=== PATIENT | male | born 1985 | race Caucasian/White ===

== ENCOUNTER 2019-10-23 22:18 | Emergency (ER) | payer BC ==
[2019-10-23] MEDS ORDERED: Sodium Chloride 0.9% 1000 ML 1,000 ML IV STA (22:33)
[2019-10-23] MEDS ORDERED: MORPHINE SULFATE 2 MG INJ IV ONE (22:33)
[2019-10-23] MEDS ORDERED: Zofran 4 MG/2 ML VIAL IV ONE (22:33)
[2019-10-23] MEDS ORDERED: MORPHINE SULFATE 2 MG INJ ONE (22:48)
[2019-10-23] MEDS ORDERED: Sodium Chloride 0.9% 1000 ML 1,000 ML ONE (22:48)
[2019-10-23] MEDS ORDERED: Zofran 4 MG/2 ML VIAL ONE (22:48)
[2019-10-23 23:14] LABS: Appearance SLIGHTLY CLOUDY (CLEAR); Bacteria NONE SEEN /HPF (NEGATIVE); Bilirubin NEGATIVE (NEGATIVE); Blood NEGATIVE Ery/ul (0-5); Epithelial Cells RARE /HPF (FEW); Glucose NEGATIVE (NEGATIVE); Ketones MODERATE (NEGATIVE); Leukocyte Esterase NEGATIVE (NEGATIVE); Mucus SLIGHT /HPF (NEGATIVE); Nitrite NEGATIVE (NEGATIVE); Protein,Urine Dip 30 (Negative); RBC 0-2 /HPF (0-2); Specific Gravity 1.024 (1.005-1.025); Urobilinogen NEGATIVE mg/dL (0-1); WBC 0-2 /HPF (0-5)
[2019-10-23 23:14] LABS: Absolute Neutrophil Ct (ANC) 9.36 (1.4-6.9); BASOPHIL % 0.1 % (0.0-0.4); Basophil (Absolute #) 0.01 (0-0.4); Eosinophil (Absolute #) 0 (0-0.5); Hematocrit 54.6 % (42-50); Hemoglobin 19.1 gm/dl (12.5-18.0); Lymphocyte (Absolute #) 0.61 (1.0-4.6); Lymphocytes % 5.6 % (24.0-44.0); Mean Cell Volume 99.6 fl (78-100); Mean Corpuscular Hemoglobin 34.9 pg (26-32); Mean Platelet Volume 9.8 fl (7.5-11.0); Monocyte (Absolute #) 1.01 (0.0-1.3); Monocytes % 9.2 % (0.0-12.0); Neutrophil % 85.1 % (36.0-66.0); Platelet Count 230 K/mm3 (150-450); Red Blood Count 5.48 M/mm3 (4.1-5.6); Red Cell Distribution Width 12.9 % (11.5-14.0)
[2019-10-23 23:21] LABS: ALBUMIN 4.9 g/dL (3.5-5.0); ALKALINE PHOSPHATASE 77 U/L (38-126); BLOOD UREA NITROGEN 12 mg/dL (9-20); CHLORIDE 101 mmol/L (98-107); Calcium 10.2 mg/dL (8.4-10.2); Carbon Dioxide 23 mmol/L (22-30); Creatinine 1 0.92 mg/dL (0.66-1.25); Glucose 92 mg/dL (74-106); Potassium 4.7 mmol/L (3.5-5.1); SGOT/AST 36 U/L (17-59); SGPT/ALT 30 U/L (0-50); SODIUM 137 mmol/L (137-145); Total Protein 8.2 g/dL (6.3-8.2)
[2019-10-23 23:42] LABS: LIPASE > 10000 U/L (23-300)
--- NOTE | 2019-10-24 00:12 | ERPHSYRPT ---
- History of Present Illness Time Seen by Provider: 10/23/19 22:40 Historian: patient Exam Limitations: no limitations Patient Subjective Stated Complaint: pt states that he woke up this morning with severe abdomen pain, pt states that pain started in LLQ and now is in RUQ, pt states that he has been vomiting since 1630, pt states that emesis is green/ yellow with black spots, pt states that he has not been able to keep anything down, pt states that he has hx of acute pacreatitis, pt states that he has a flare up at least once a year Triage Nursing Assessment: pt ambulated into the er, pt is axo x3, pt is guarding RUQ, pt c/o N/V, pt has active bowel sounds in all quads, pt abdomen in symetrical and flat, hypertensive Physician History: Patient is a 34-year-old male presents to our ED with complaints of epigastric pain. Pain started this morning. Pain first observed in the left upper quadrant and radiated to the right upper quadrant. Pain is associated with nausea and vomiting. Patient states he is unable to tolerate p.o. Emesis is green to yellow. No diarrhea. Patient admits to history of pancreatitis. Patient states his symptoms today are similar. No trauma. No fever. Symptoms are moderate in intensity. Palpation and movement worsen symptoms. Patient voices no other complaints at this time. Timing/Duration: today Activities at Onset: none Quality: aching Abdominal Pain Onset Location: epigastric Pain Radiation: RUQ, LLQ Severity of Pain-Max: moderate Severity of Pain-Current: mild Modifying Factors: Improves With: movement Associated Symptoms: loss of appetite, nausea, vomiting, No chest pain, No diaphoresis, No diarrhea, No fever/chills, No headache, No heartburn, No neck pain, No rash, No shortness of breath Previous symptoms: no prior history Allergies/Adverse Reactions: No Known Drug Allergies Allergy (Unverified 10/23/19 22:32) Home Medications: Bupropion HCl [Wellbutrin Xl] 150 mg PO DAILY 10/23/19 [History] Buspirone HCl 5 mg PO BID 10/23/19 [History] Escitalopram Oxalate [Lexapro] 20 mg PO DAILY 10/23/19 [History] Omeprazole 40 mg PO DAILY 10/23/19 [History] Hx Tetanus, Diphtheria Vaccination/Date Given: Yes (2018) Hx Influenza Vaccination/Date Given: No Hx Pneumococcal Vaccination/Date Given: No Travel Risk - International Travel Have you traveled outside of the country in past 3 weeks: No (N) If Yes, where;: N - Coronavirus Screening Are you exhibiting any of the following symptoms?: No Close contact with a COVID-19 positive Pt in past 14-21 Days: No - Review of Systems Constitutional: No Symptoms, No Fever, No Chills Eyes: No Symptoms Ears, Nose, & Throat: No Symptoms Respiratory: No Symptoms, No Cough, No Dyspnea Cardiac: No Symptoms, No Chest Pain, No Edema, No Syncope Abdominal/Gastrointestinal: No Symptoms, No Abdominal Pain, No Nausea, No Vomiting, No Diarrhea Genitourinary Symptoms: No Symptoms, No Dysuria Musculoskeletal: No Symptoms, No Back Pain, No Neck Pain Skin: No Symptoms, No Rash Neurological: No Symptoms, No Dizziness, No Focal Weakness, No Sensory Changes Psychological: No Symptoms Endocrine: No Symptoms Hematologic/Lymphatic: No Symptoms Immunological/Allergic: No Symptoms All Other Systems: Reviewed and Negative - Past Medical History GI Medical History: GERD Psycho-Social History: Anxiety, Depression - Past Surgical History Other Surgical History: 3 sets of tubes in bilateral ears - Social History Smoking Status: Current every day smoker How long have you smoked: 2 Exposure to second hand smoke: Yes Drug Use: none Patient Lives Alone: No - Nursing Vital Signs Nursing Vital Signs: Initial Vital Signs Temperature 97.7 F 10/23/19 22:33 Pulse Rate 81 10/23/19 22:33 Respiratory Rate 16 10/23/19 22:33 Blood Pressure 171/102 10/23/19 22:33 O2 Sat by Pulse Oximetry 97 10/23/19 22:33 Pain Scale Pain Intensity 6 - Physical Exam General Appearance: no apparent distress, alert Eye Exam: PERRL/EOMI, eyes nml inspection Ears, Nose, Throat Exam: normal ENT inspection, pharynx normal, moist mucous membranes Neck Exam: normal inspection, non-tender, supple, full range of motion Respiratory Exam: normal breath sounds, lungs clear, No respiratory distress Cardiovascular Exam: regular rate/rhythm, normal heart sounds Gastrointestinal/Abdomen Exam: soft, No tenderness, No mass Back Exam: normal inspection, normal range of motion, No CVA tenderness, No vertebral tenderness Extremity Exam: normal inspection, normal range of motion, pelvis stable Neurologic Exam: alert, oriented x 3, cooperative, normal mood/affect, nml cerebellar function, sensation nml, No motor deficits Skin Exam: normal color, warm, dry SpO2 Interpretation: normal SpO2: 98 O2 Delivery: Room Air - Course Nursing assessment & vital signs reviewed: Yes - CT Exams Abdomen/Pelvis CT Interpretation: Tele-radiologist Report (Severe peripancreatic edema, 1.4 cm left mid kidney mass) Ordered Tests: Active Orders 24 hr Category Date Time Status IV Insertion STAT Care 10/23/19 22:33 Active NPO (ED) STAT Care 10/24/19 00:43 Active ABDOMEN AND PELVIS W CONTRAST [CT] Stat Exams 10/23/19 22:34 Ordered CBC W DIFF Stat Lab 10/23/19 22:44 Completed CMP Stat Lab 10/23/19 22:44 Completed LIPASE Stat Lab 10/23/19 22:44 Completed TROPONIN Q3H Lab 10/23/19 22:44 Completed TROPONIN Q3H Lab 10/24/19 01:45 Ordered TROPONIN Q3H Lab 10/24/19 04:45 Ordered TROPONIN Q3H Lab 10/24/19 07:45 Ordered TROPONIN Q3H Lab 10/24/19 10:45 Ordered UA W/RFX UR CULTURE Stat Lab 10/23/19 23:03 Completed Medication Summary Generic Name Dose Route Start Last Admin Trade Name Freq PRN Reason Stop Dose Admin Sodium Chloride 1,000 mls @ 999 mls/hr 10/24/19 00:44 10/24/19 00:52 Sodium Chloride 0.9% 1000 Ml IV 10/24/19 01:44 999 mls/hr .Q1H1M STA Administration Discontinued Medications Generic Name Dose Route Start Last Admin Trade Name Freq PRN Reason Stop Dose Admin Sodium Chloride 1,000 mls @ 999 mls/hr 10/23/19 22:33 10/24/19 00:49 Sodium Chloride 0.9% 1000 Ml IV 10/23/19 23:33 Infused .Q1H1M STA Infusion Sodium Chloride Confirm 10/23/19 22:48 Sodium Chloride 0.9% 1000 Ml Administered 10/23/19 22:49 Dose 1,000 mls @ ud .ROUTE .STK-MED ONE Sodium Chloride Confirm 10/24/19 00:51 Sodium Chloride 0.9% 1000 Ml Administered 10/24/19 00:52 Dose 1,000 mls @ ud .ROUTE .STK-MED ONE Morphine Sulfate 2 mg 10/23/19 22:33 10/23/19 22:51 Morphine Sulfate 2 Mg Inj IV 10/23/19 22:34 2 mg STAT ONE Administration Morphine Sulfate Confirm 10/23/19 22:48 Morphine Sulfate 2 Mg Inj Administered 10/23/19 22:49 Dose 2 mg .ROUTE .STK-MED ONE Morphine Sulfate 4 mg 10/24/19 00:42 10/24/19 00:52 Morphine Sulfate 4 Mg Inj IV 10/24/19 00:43 4 mg STAT ONE Administration Morphine Sulfate Confirm 10/24/19 00:51 Morphine Sulfate 4 Mg Inj Administered 10/24/19 00:52 Dose 4 mg .ROUTE .STK-MED ONE Ondansetron HCl 4 mg 10/23/19 22:33 10/23/19 22:51 Zofran 4 Mg/2 Ml Vial IV 10/23/19 22:34 4 mg STAT ONE Administration Ondansetron HCl Confirm 10/23/19 22:48 Zofran 4 Mg/2 Ml Vial Administered 10/23/19 22:49 Dose 4 mg .ROUTE .STK-MED ONE Lab/Rad Data: Laboratory Result Diagrams 10/23/19 22:44 10/23/19 22:44 Laboratory Results 10/23/19 10/23/19 10/23/19 Range/Units 23:03 22:44 22:44 WBC 11.0 H (4.0-10.5) K/mm3 RBC 5.48 (4.1-5.6) M/mm3 Hgb 19.1 H (12.5-18.0) gm/dl Hct 54.6 H (42-50) % MCV 99.6 (78-100) fl MCH 34.9 H (26-32) pg MCHC 35.0 (32-36) g/dl RDW 12.9 (11.5-14.0) % Plt Count 230 (150-450) K/mm3 MPV 9.8 (7.5-11.0) fl Gran % 85.1 H (36.0-66.0) % Eos # (Auto) 0 (0-0.5) Absolute Lymphs (auto) 0.61 L (1.0-4.6) Absolute Monos (auto) 1.01 (0.0-1.3) Lymphocytes % 5.6 L (24.0-44.0) % Monocytes % 9.2 (0.0-12.0) % Eosinophils % 0.0 (0.00-5.0) % Basophils % 0.1 (0.0-0.4) % Absolute Granulocytes 9.36 H (1.4-6.9) Basophils # 0.01 (0-0.4) Sodium (137-145) mmol/L Potassium (3.5-5.1) mmol/L Chloride (98-107) mmol/L Carbon Dioxide (22-30) mmol/L Anion Gap (5-15) MEQ/L BUN (9-20) mg/dL Creatinine (0.66-1.25) mg/dL Estimated GFR ML/MIN Glucose (74-106) mg/dL Calcium (8.4-10.2) mg/dL Total Bilirubin (0.2-1.3) mg/dL AST (17-59) U/L ALT (0-50) U/L Alkaline Phosphatase (38-126) U/L Troponin I < 0.012 (0.000-0.034) ng/mL Serum Total Protein (6.3-8.2) g/dL Albumin (3.5-5.0) g/dL Lipase (23-300) U/L Urine Color YELLOW (YELLOW) Urine Appearance SLIGHTLY CLOUDY (CLEAR) Urine pH 5.0 (5-6) Ur Specific [place] 1.024 (1.005-1.025) Urine Protein 30 (Negative) Urine Ketones MODERATE (NEGATIVE) Urine Blood NEGATIVE (0-5) Bill/ul Urine Nitrite NEGATIVE (NEGATIVE) Urine Bilirubin NEGATIVE (NEGATIVE) Urine Urobilinogen NEGATIVE (0-1) mg/dL Ur Leukocyte Esterase NEGATIVE (NEGATIVE) Urine WBC (Auto) 0-2 (0-5) /HPF Urine RBC (Auto) 0-2 (0-2) /HPF U Hyaline Cast (Auto) 3-5 (0-2) /LPF U Epithel Cells (Auto) RARE (FEW) /HPF Urine Bacteria (Auto) NONE SEEN (NEGATIVE) /HPF Urine Mucus (Auto) SLIGHT (NEGATIVE) /HPF Urine Culture Reflexed NO (NO) Urine Glucose NEGATIVE (NEGATIVE) mg/dL 10/23/19 Range/Units 22:44 WBC (4.0-10.5) K/mm3 RBC (4.1-5.6) M/mm3 Hgb (12.5-18.0) gm/dl Hct (42-50) % MCV (78-100) fl MCH (26-32) pg MCHC (32-36) g/dl RDW (11.5-14.0) % Plt Count (150-450) K/mm3 MPV (7.5-11.0) fl Gran % (36.0-66.0) % Eos # (Auto) (0-0.5) Absolute Lymphs (auto) (1.0-4.6) Absolute Monos (auto) (0.0-1.3) Lymphocytes % (24.0-44.0) % Monocytes % (0.0-12.0) % Eosinophils % (0.00-5.0) % Basophils % (0.0-0.4) % Absolute Granulocytes (1.4-6.9) Basophils # (0-0.4) Sodium 137 (137-145) mmol/L Potassium 4.7 (3.5-5.1) mmol/L Chloride 101 (98-107) mmol/L Carbon Dioxide 23 (22-30) mmol/L Anion Gap 17.0 H (5-15) MEQ/L BUN 12 (9-20) mg/dL Creatinine 0.92 (0.66-1.25) mg/dL Estimated GFR > 60.0 ML/MIN Glucose 92 (74-106) mg/dL Calcium 10.2 (8.4-10.2) mg/dL Total Bilirubin 1.30 (0.2-1.3) mg/dL AST 36 (17-59) U/L ALT 30 (0-50) U/L Alkaline Phosphatase 77 (38-126) U/L Troponin I (0.000-0.034) ng/mL Serum Total Protein 8.2 (6.3-8.2) g/dL Albumin 4.9 (3.5-5.0) g/dL Lipase > 76380 H (23-300) U/L Urine Color (YELLOW) Urine Appearance (CLEAR) Urine pH (5-6) Ur Specific [place] (1.005-1.025) Urine Protein (Negative) Urine Ketones (NEGATIVE) Urine Blood (0-5) Bill/ul Urine Nitrite (NEGATIVE) Urine Bilirubin (NEGATIVE) Urine Urobilinogen (0-1) mg/dL Ur Leukocyte Esterase (NEGATIVE) Urine WBC (Auto) (0-5) /HPF Urine RBC (Auto) (0-2) /HPF U Hyaline Cast (Auto) (0-2) /LPF U Epithel Cells (Auto) (FEW) /HPF Urine Bacteria (Auto) (NEGATIVE) /HPF Urine Mucus (Auto) (NEGATIVE) /HPF Urine Culture Reflexed (NO) Urine Glucose (NEGATIVE) mg/dL - Progress Progress: improved Progress Note: Cussed with Dr. Leahy who feels that patient will be better served in a facility that offers ERCP. Patient will be transferred to [facility]. Dr. Wellington. Plan of care discussed with patient. He agrees to transfer to [facility] for further evaluation and treatment. 10/24/19 01:[address] Arcenio Counseled pt/family regarding: drug and/or alcohol abuse, lab results, diagnosis, rad results - Departure Departure Disposition: Transfer Clinical Impression: Pancreatitis, Renal mass, left, Leukocytosis, Polycythemia, High anion gap metabolic acidosis, Elevated lipase, Nausea and vomiting Condition: Stable Critical Care Time: No Referrals: RICHARD MONTES MD [Primary Care Provider] - Additional Instructions: Discharge/Care Plan SUKUMAR PATTEN was seen on 10/24/19 in the Emergency Room. The patient was counseled regarding Diagnosis,Lab results, Imaging studies, need for follow up and when to return to the Emergency Room. Prescriptions given: Discharge Note I have spoken with the patient and/or caregivers. I have explained the patient's condition, diagnosis and treatment plan based on the information available to me at this time. I have answered the patient's and/or caregiver's questions and addressed any concerns. The patient and/or caregivers have as good understanding of the patient's diagnosis, condition and treatment plan as can be expected at this point. The vital signs have been stable. The patient's condition is stable and appropriate for discharge from the emergency department. The patient will pursue further outpatient evaluation with the primary care physician or other designated or consulting physician as outlined in the discharge instructions. The patient and/or caregivers are agreeable to this plan of care and follow-up instructions have been explained in detail. The patient and/or caregivers have received these instruction. The patient/and or caregivers are aware that any significant change in condition or worsening of symptoms should prompt an immediate return to this or the closest emergency department or call 911.
[2019-10-24] MEDS ORDERED: MORPHINE SULFATE 4 MG INJ IV ONE (00:42)
[2019-10-24] MEDS ORDERED: Sodium Chloride 0.9% 1000 ML 1,000 ML IV STA (00:44)
[2019-10-24] MEDS ORDERED: MORPHINE SULFATE 4 MG INJ ONE (00:51)
[2019-10-24] MEDS ORDERED: Sodium Chloride 0.9% 1000 ML 1,000 ML ONE (00:51)
[2019-10-24 01:03] VITALS: BP 154/82; PULSE 72
[2019-10-24 01:20] VITALS: O2SAT 98
--- NOTE | 2019-10-24 09:00 | XRAY ---
Indication: Abdomen pain, nausea, and vomiting. Pancreatitis. Multiple contiguous axial images obtained through the abdomen and pelvis using 80 cc Isovue 370 contrast only. Comparison: None. Lung bases are clear. Heart is not enlarged. Noncontrasted stomach and bowel loops appear nonobstructed. Normal appendix. Abnormal prominent pancreas with moderate peripancreatic stranding favoring pancreatitis. Moderate peripancreatic free fluid with small amount extending to the left colic gutter and pelvis. No walled off fluid collection or free air. Left mid kidney demonstrates 1.2 cm ovoid exophytic mass not simple cyst in appearance. Remaining liver, gallbladder, spleen, adrenal glands, kidneys, ureters, bladder, and aorta appear unremarkable. No pathologic retroperitoneal lymphadenopathy. Osseous structures intact. No ventral or inguinal hernias. Impression: 1. CT findings favoring acute pancreatitis with free fluid. 2. Small left renal exophytic mass not simple cyst in appearance. MRI with contrast exam may yield further information. Comment: Preliminary interpretation was made by [facility]. No critical discrepancy.
== END 2019-10-24 01:52 | disposition short-term general hospital (02) ==
LOC: ED 22:18
DX: K85.90 Acute pancreatitis without necrosis or infection, unspecified (principal); N28.89 Other specified disorders of kidney and ureter; D72.829 Elevated white blood cell count, unspecified; D75.1 Secondary polycythemia; E87.2 Acidosis; R74.8 Abnormal levels of other serum enzymes; R11.2 Nausea with vomiting, unspecified; R10.13 Epigastric pain; R10.11 Right upper quadrant pain; R10.12 Left upper quadrant pain; R10.32 Left lower quadrant pain; Z79.899 Other long term (current) drug therapy
CPT/HCPCS: 36000; 36415; 74177; 80053; 81001; 83690; 84484; 85025; 96360; 96361; 96374; 96375; 96376; 99285; J2270; J2405

== ENCOUNTER 2019-12-09 19:18 | Emergency (ER) | payer BC, MEDICAID, OTHER ==
[2019-12-09] MEDS ORDERED: Sodium Chloride 0.9% 1000 ML 1,000 ML IV STA (19:22)
[2019-12-09] MEDS ORDERED: THIAMINE 200 MG/2 ML IV ONE (19:24)
[2019-12-09] MEDS ORDERED: THIAMINE 200 MG/2 ML ONE (19:26)
[2019-12-09] MEDS ORDERED: Sodium Chloride 0.9% 1000 ML 1,000 ML ONE (19:26)
[2019-12-09 19:40] LABS: Absolute Neutrophil Ct (ANC) 2.57 (1.4-6.9); BASOPHIL % 0.2 % (0.0-0.4); Basophil (Absolute #) 0.01 (0-0.4); Eosinophil % 2.2 % (0.00-5.0); Eosinophil (Absolute #) 0.11 (0-0.5); Hematocrit 45.4 % (42-50); Hemoglobin 15.3 gm/dl (12.5-18.0); Lymphocyte (Absolute #) 1.87 (1.0-4.6); Lymphocytes % 36.7 % (24.0-44.0); Mean Cell Volume 101.8 fl (78-100); Mean Corpuscular Hemoglobin 34.3 pg (26-32); Mean Corpuscular Hgb Concent. 33.7 g/dl (32-36); Mean Platelet Volume 9.1 fl (7.5-11.0); Monocyte (Absolute #) 0.54 (0.0-1.3); Monocytes % 10.6 % (0.0-12.0); Neutrophil % 50.3 % (36.0-66.0); Platelet Count 219 K/mm3 (150-450); Red Blood Count 4.46 M/mm3 (4.1-5.6); Red Cell Distribution Width 12.3 % (11.5-14.0); White Blood Count 5.1 K/mm3 (4.0-10.5)
[2019-12-09 19:53] LABS: ALBUMIN 4.7 g/dL (3.5-5.0); ALKALINE PHOSPHATASE 58 U/L (38-126); ANION GAP 13.8 MEQ/L (5-15); BLOOD UREA NITROGEN 8 mg/dL (9-20); CHLORIDE 106 mmol/L (98-107); Calcium 8.9 mg/dL (8.4-10.2); Carbon Dioxide 26 mmol/L (22-30); Creatinine 1 0.84 mg/dL (0.66-1.25); ETHYL ALCOHOL 272 mg/dL (0-10); Glucose 95 mg/dL (74-106); Potassium 4.1 mmol/L (3.5-5.1); SGOT/AST 44 U/L (17-59); SGPT/ALT 35 U/L (0-50); SODIUM 142 mmol/L (137-145); Total Protein 7.8 g/dL (6.3-8.2)
[2019-12-09 19:57] LABS: ACETAMINOPHEN < 10 ug/ml (10-30)
[2019-12-09 19:58] LABS: SALICYLATE < 1.0 mg/dL (2-20)
--- NOTE | 2019-12-09 19:59 | ERPHSYRPT ---
- History of Present Illness Time Seen by Provider: 12/09/19 19:25 Patient Subjective Stated Complaint: pt was brought into er for medical cleareance by officer, officer states pt was drinking and driving Triage Nursing Assessment: pt ambulated into the er, pt is axo x3, hypertensive, tachycardic, blood sugar 102, clear lung sounds anterior and posterior, active bowel sounds in all quads, pupils 4 mm and PERRL Physician History: pt was brought into er for medical cleareance by officer, officer states pt was drinking and driving. He is asymptomatic Timing/Duration: today Severity: moderate Modifying Factors: Improves With: other (None) Allergies/Adverse Reactions: No Known Drug Allergies Allergy (Verified 12/09/19 19:20) Home Medications: Bupropion HCl [Wellbutrin Xl] 150 mg PO DAILY 10/23/19 [History] Buspirone HCl 10 mg PO BID 10/23/19 [History] Escitalopram Oxalate [Lexapro] 40 mg PO DAILY 10/23/19 [History] Omeprazole 40 mg PO DAILY 10/23/19 [History] Hx Tetanus, Diphtheria Vaccination/Date Given: Yes (2018) Hx Influenza Vaccination/Date Given: No Hx Pneumococcal Vaccination/Date Given: No Travel Risk - International Travel Have you traveled outside of the country in past 3 weeks: No - Coronavirus Screening Close contact with a COVID-19 positive Pt in past 14-21 Days: No - Review of Systems Constitutional: No Fever, No Chills Eyes: No Symptoms Ears, Nose, & Throat: No Symptoms Respiratory: No Cough, No Dyspnea Cardiac: No Chest Pain, No Edema, No Syncope Abdominal/Gastrointestinal: No Abdominal Pain, No Nausea, No Vomiting, No Diarrhea Genitourinary Symptoms: No Dysuria Musculoskeletal: No Back Pain, No Neck Pain Skin: No Rash Neurological: No Dizziness, No Focal Weakness, No Sensory Changes Psychological: No Symptoms Endocrine: No Symptoms All Other Systems: Reviewed and Negative - Past Medical History Pertinent Past Medical History: Yes Neurological History: No Pertinent History ENT History: No Pertinent History Cardiac History: No Pertinent History Respiratory History: No Pertinent History Endocrine Medical History: No Pertinent History GI Medical History: GERD, Pancreatitis, Other (GERD) Psycho-Social History: Anxiety, Depression - Past Surgical History Past Surgical History: No Other Surgical History: 3 sets of tubes in bilateral ears - Social History Smoking Status: Current every day smoker How long have you smoked: 2 Exposure to second hand smoke: Yes Drug Use: none Patient Lives Alone: No - Nursing Vital Signs Nursing Vital Signs: Initial Vital Signs Temperature 98.1 F 12/09/19 19:21 Pulse Rate 102 H 12/09/19 19:21 Respiratory Rate 14 12/09/19 19:21 Blood Pressure 158/106 12/09/19 19:21 O2 Sat by Pulse Oximetry 99 12/09/19 19:21 Pain Scale Pain Intensity 0 - Physical Exam General Appearance: no apparent distress, alert Eye Exam: PERRL/EOMI, eyes nml inspection Ears, Nose, Throat Exam: normal ENT inspection, TMs normal, pharynx normal, moist mucous membranes Neck Exam: normal inspection, non-tender, supple, full range of motion Respiratory Exam: normal breath sounds, lungs clear, No respiratory distress Cardiovascular Exam: regular rate/rhythm, normal heart sounds, normal peripheral pulses Gastrointestinal/Abdomen Exam: soft, normal bowel sounds, No tenderness, No mass Back Exam: normal inspection, normal range of motion, No CVA tenderness, No vertebral tenderness Extremity Exam: normal inspection, normal range of motion, pelvis stable Neurologic Exam: alert, oriented x 3, cooperative, normal mood/affect, nml cerebellar function, nml station & gait, sensation nml, No motor deficits Skin Exam: normal color, warm, dry, other (Skin 1 cm small superficial well aligned laceration to the left middle finger distal end.), No rash Lymphatic Exam: No adenopathy SpO2: 99 - Course Nursing assessment & vital signs reviewed: Yes Ordered Tests: Active Orders 24 hr Category Date Time Status Dressing Care ROUTINE Care 12/09/19 20:02 Active IV Insertion STAT Care 12/09/19 19:22 Active ACETAMINOPHEN Stat Lab 12/09/19 19:30 Completed Alcohol [ETHYL ALCOHOL] Stat Lab 12/09/19 21:15 Ordered CBC W DIFF Stat Lab 12/09/19 19:30 Completed CMP Stat Lab 12/09/19 19:30 Completed ETHYL ALCOHOL Routine Lab 12/09/19 20:17 Completed ETHYL ALCOHOL Stat Lab 12/09/19 19:30 Completed SALICYLATE Stat Lab 12/09/19 19:30 Completed UA W/RFX UR CULTURE Stat Lab 12/09/19 20:30 Completed Urine Triage Profile Stat Lab 12/09/19 20:30 Completed Medication Summary Discontinued Medications Generic Name Dose Route Start Last Admin Trade Name Sebastian PRN Reason Stop Dose Admin Sodium Chloride 1,000 mls @ 999 mls/hr 12/09/19 19:22 12/09/19 20:31 Sodium Chloride 0.9% 1000 Ml IV 12/09/19 20:22 Infused .Q1H1M STA Infusion Sodium Chloride Confirm 12/09/19 19:26 Sodium Chloride 0.9% 1000 Ml Administered 12/09/19 19:27 Dose 1,000 mls @ ud .ROUTE .STK-MED ONE Lactated Ringer's 1,000 mls @ 999 mls/hr 12/09/19 20:04 12/09/19 20:16 Lactated Ringers IV 12/09/19 21:04 999 mls/hr .Q1H1M ONE Administration Lactated Ringer's Confirm 12/09/19 20:14 Lactated Ringers Administered 12/09/19 20:15 Dose 1,000 mls @ ud IV .STK-MED ONE Thiamine HCl 100 mg 12/09/19 19:24 12/09/19 19:30 Thiamine 200 Mg/2 Ml IV 12/09/19 19:25 100 mg STAT ONE Administration Thiamine HCl Confirm 12/09/19 19:26 Thiamine 200 Mg/2 Ml Administered 12/09/19 19:27 Dose 200 mg .ROUTE .STK-MED ONE Lab/Rad Data: Laboratory Result Diagrams 12/09/19 19:30 12/09/19 19:30 Laboratory Results 12/09/19 12/09/19 12/09/19 Range/Units 20:30 20:30 20:17 WBC (4.0-10.5) K/mm3 RBC (4.1-5.6) M/mm3 Hgb (12.5-18.0) gm/dl Hct (42-50) % MCV (78-100) fl MCH (26-32) pg MCHC (32-36) g/dl RDW (11.5-14.0) % Plt Count (150-450) K/mm3 MPV (7.5-11.0) fl Gran % (36.0-66.0) % Eos # (Auto) (0-0.5) Absolute Lymphs (auto) (1.0-4.6) Absolute Monos (auto) (0.0-1.3) Lymphocytes % (24.0-44.0) % Monocytes % (0.0-12.0) % Eosinophils % (0.00-5.0) % Basophils % (0.0-0.4) % Absolute Granulocytes (1.4-6.9) Basophils # (0-0.4) Sodium (137-145) mmol/L Potassium (3.5-5.1) mmol/L Chloride (98-107) mmol/L Carbon Dioxide (22-30) mmol/L Anion Gap (5-15) MEQ/L BUN (9-20) mg/dL Creatinine (0.66-1.25) mg/dL Estimated GFR ML/MIN Glucose (74-106) mg/dL Calcium (8.4-10.2) mg/dL Total Bilirubin (0.2-1.3) mg/dL AST (17-59) U/L ALT (0-50) U/L Alkaline Phosphatase (38-126) U/L Serum Total Protein (6.3-8.2) g/dL Albumin (3.5-5.0) g/dL Urine Color STRAW (YELLOW) Urine Appearance CLEAR (CLEAR) Urine pH 7.0 (5-6) Ur Specific [place] 1.003 (1.005-1.025) Urine Protein NEGATIVE (Negative) Urine Ketones NEGATIVE (NEGATIVE) Urine Blood NEGATIVE (0-5) Bill/ul Urine Nitrite NEGATIVE (NEGATIVE) Urine Bilirubin NEGATIVE (NEGATIVE) Urine Urobilinogen NEGATIVE (0-1) mg/dL Ur Leukocyte Esterase NEGATIVE (NEGATIVE) Urine WBC (Auto) NONE (0-5) /HPF Urine RBC (Auto) NONE (0-2) /HPF U Epithel Cells (Auto) NONE (FEW) /HPF Urine Bacteria (Auto) NONE (NEGATIVE) /HPF Urine Mucus (Auto) SLIGHT (NEGATIVE) /HPF Urine Culture Reflexed NO (NO) Urine Glucose NEGATIVE (NEGATIVE) mg/dL Salicylates (2-20) mg/dL Urine Opiates Level NEGATIVE (NEGATIVE) Ur Methadone NEGATIVE (NEGATIVE) Acetaminophen (10-30) ug/ml Urine Barbiturates NEGATIVE (NEGATIVE) Ur Phencyclidine (PCP) NEGATIVE (NEGATIVE) Urine Amphetamine NEGATIVE (NEGATIVE) U Benzodiazepine Level NEGATIVE (NEGATIVE) Urine Cocaine NEGATIVE (NEGATIVE) Urine Marijuana (THC) NEGATIVE (NEGATIVE) Ethyl Alcohol 254 H (0-10) mg/dL 12/09/19 12/09/19 Range/Units 19:30 19:30 WBC 5.1 (4.0-10.5) K/mm3 RBC 4.46 (4.1-5.6) M/mm3 Hgb 15.3 (12.5-18.0) gm/dl Hct 45.4 (42-50) % MCV 101.8 H (78-100) fl MCH 34.3 H (26-32) pg MCHC 33.7 (32-36) g/dl RDW 12.3 (11.5-14.0) % Plt Count 219 (150-450) K/mm3 MPV 9.1 (7.5-11.0) fl Gran % 50.3 (36.0-66.0) % Eos # (Auto) 0.11 (0-0.5) Absolute Lymphs (auto) 1.87 (1.0-4.6) Absolute Monos (auto) 0.54 (0.0-1.3) Lymphocytes % 36.7 (24.0-44.0) % Monocytes % 10.6 (0.0-12.0) % Eosinophils % 2.2 (0.00-5.0) % Basophils % 0.2 (0.0-0.4) % Absolute Granulocytes 2.57 (1.4-6.9) Basophils # 0.01 (0-0.4) Sodium 142 (137-145) mmol/L Potassium 4.1 (3.5-5.1) mmol/L Chloride 106 (98-107) mmol/L Carbon Dioxide 26 (22-30) mmol/L Anion Gap 13.8 (5-15) MEQ/L BUN 8 L (9-20) mg/dL Creatinine 0.84 (0.66-1.25) mg/dL Estimated GFR > 60.0 ML/MIN Glucose 95 (74-106) mg/dL Calcium 8.9 (8.4-10.2) mg/dL Total Bilirubin 0.30 (0.2-1.3) mg/dL AST 44 (17-59) U/L ALT 35 (0-50) U/L Alkaline Phosphatase 58 (38-126) U/L Serum Total Protein 7.8 (6.3-8.2) g/dL Albumin 4.7 (3.5-5.0) g/dL Urine Color (YELLOW) Urine Appearance (CLEAR) Urine pH (5-6) Ur Specific [place] (1.005-1.025) Urine Protein (Negative) Urine Ketones (NEGATIVE) Urine Blood (0-5) Bill/ul Urine Nitrite (NEGATIVE) Urine Bilirubin (NEGATIVE) Urine Urobilinogen (0-1) mg/dL Ur Leukocyte Esterase (NEGATIVE) Urine WBC (Auto) (0-5) /HPF Urine RBC (Auto) (0-2) /HPF U Epithel Cells (Auto) (FEW) /HPF Urine Bacteria (Auto) (NEGATIVE) /HPF Urine Mucus (Auto) (NEGATIVE) /HPF Urine Culture Reflexed (NO) Urine Glucose (NEGATIVE) mg/dL Salicylates < 1.0 L (2-20) mg/dL Urine Opiates Level (NEGATIVE) Ur Methadone (NEGATIVE) Acetaminophen < 10 L (10-30) ug/ml Urine Barbiturates (NEGATIVE) Ur Phencyclidine (PCP) (NEGATIVE) Urine Amphetamine (NEGATIVE) U Benzodiazepine Level (NEGATIVE) Urine Cocaine (NEGATIVE) Urine Marijuana (THC) (NEGATIVE) Ethyl Alcohol 272 H (0-10) mg/dL - Progress Progress: improved Progress Note: Patient has been asymptomatic ever since he arrived to the ER. The blood alcohol level is 254. Pulse is 74 and blood pressure 128/80. Will discharge patient to the half-way with police. No acute life or limb threatening condition on discharge. 12/09/19 21:41 Counseled pt/family regarding: diagnosis, need for follow-up - Departure Departure Disposition: Fpc/Usp Clinical Impression: Alcoholic intoxication without complication Condition: Good Critical Care Time: No Referrals: RICHARD MONTES MD [Primary Care Provider] - Follow Up with PCP/3 days Instructions: Alcohol Abuse and Alcoholism (DC)
[2019-12-09] MEDS ORDERED: Lactated Ringers 1,000 ML IV ONE ×2 (20:04→20:14)
[2019-12-09 20:52] LABS: Appearance CLEAR (CLEAR); Bilirubin NEGATIVE (NEGATIVE); Blood NEGATIVE Ery/ul (0-5); Glucose NEGATIVE (NEGATIVE); Ketones NEGATIVE (NEGATIVE); Leukocyte Esterase NEGATIVE (NEGATIVE); Mucus SLIGHT /HPF (NEGATIVE); Nitrite NEGATIVE (NEGATIVE); Protein,Urine Dip NEGATIVE (Negative); Specific Gravity 1.003 (1.005-1.025); Urobilinogen NEGATIVE mg/dL (0-1)
[2019-12-09 20:53] LABS: Amphetamine,Urine NEGATIVE (NEGATIVE); Barbiturate,Urine NEGATIVE (NEGATIVE); Benzodiazepine,Urine NEGATIVE (NEGATIVE); Cocaine,Urine NEGATIVE (NEGATIVE); Methadone,Urine NEGATIVE (NEGATIVE); Opiate,Urine NEGATIVE (NEGATIVE); PCP,Urine NEGATIVE (NEGATIVE); THC,Urine NEGATIVE (NEGATIVE)
[2019-12-09 21:52] VITALS: BP 116/79; PULSE 75; O2SAT 100
== END 2019-12-09 21:48 ==
LOC: ED 19:18
DX: F10.129 Alcohol abuse with intoxication, unspecified (principal); Z02.89 Encounter for other administrative examinations
CPT/HCPCS: 36000; 36415; 80053; 80307; 81001; 82962; 85025; 96360; 96361; 96374; 99284; G0480

== ENCOUNTER 2020-02-03 01:50 | Emergency (ER) | payer SELFPAY ==
[2020-02-03] MEDS ORDERED: Adacel Vial IM ONE (01:58)
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
[2020-02-03 02:19] LABS: Absolute Neutrophil Ct (ANC) 4.18 (1.4-6.9); BASOPHIL % 0.3 % (0.0-0.4); Basophil (Absolute #) 0.02 (0-0.4); Eosinophil % 3.4 % (0.00-5.0); Eosinophil (Absolute #) 0.23 (0-0.5); Hematocrit 43.4 % (42-50); Hemoglobin 14.6 gm/dl (12.5-18.0); Lymphocyte (Absolute #) 1.79 (1.0-4.6); Lymphocytes % 26.2 % (24.0-44.0); Mean Cell Volume 101.2 fl (78-100); Mean Corpuscular Hgb Concent. 33.6 g/dl (32-36); Mean Platelet Volume 9.2 fl (7.5-11.0); Monocytes % 8.8 % (0.0-12.0); Neutrophil % 61.3 % (36.0-66.0); Platelet Count 207 K/mm3 (150-450); Red Blood Count 4.29 M/mm3 (4.1-5.6); Red Cell Distribution Width 11.7 % (11.5-14.0); White Blood Count 6.8 K/mm3 (4.0-10.5)
[2020-02-03 02:34] LABS: ALBUMIN 4.3 g/dL (3.5-5.0); ALKALINE PHOSPHATASE 43 U/L (38-126); ANION GAP 14.7 MEQ/L (5-15); BLOOD UREA NITROGEN 9 mg/dL (9-20); CHLORIDE 105 mmol/L (98-107); Calcium 8.7 mg/dL (8.4-10.2); Carbon Dioxide 22 mmol/L (22-30); Creatinine 1 0.84 mg/dL (0.66-1.25); EST GLOMERULAR FILTRATION RATE > 60.0 ML/MIN; Glucose 104 mg/dL (74-106); Potassium 3.7 mmol/L (3.5-5.1); SGOT/AST 35 U/L (17-59); SGPT/ALT 28 U/L (0-50); SODIUM 138 mmol/L (137-145)
[2020-02-03] MEDS: TORAdol 30 mg Injection IV ONE (03:22)
[2020-02-03] MEDS: Sodium Chloride 0.9% 1000 ML 1,000 ML IV STA (03:22)
[2020-02-03 03:28] VITALS: BP 134/82; PULSE 98; O2SAT 94
[2020-02-03] MEDS ORDERED: Augmentin 875-125 Tablet ONE (03:39)
[2020-02-03] MEDS: Augmentin 875-125 Tablet PO ONE (03:40)
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
== END 2020-02-03 03:45 | disposition home or self-care (01) ==
LOC: ED 01:50
DX: S02.2XXA Fracture of nasal bones, initial encounter for closed fracture (principal); S02.80XA Fracture of other specified skull and facial bones, unspecified side, initial encounter for closed fracture; F10.929 Alcohol use, unspecified with intoxication, unspecified; Y04.0XXA Assault by unarmed brawl or fight, initial encounter; F41.9 Anxiety disorder, unspecified; F32.9 Major depressive disorder, single episode, unspecified; Z72.0 Tobacco use
CPT/HCPCS: 36000; 36415; 70450; 70486; 71250; 72125; 80053; 80307; 85025; 99284; 99291; A9270-GY; G0480

== ENCOUNTER 2020-02-17 09:24 | Observation (INO) | payer SELFPAY ==
[2020-02-17] MEDS ORDERED: Sodium Chloride 0.9% 1000 ML 1,000 ML IV STA (09:52)
[2020-02-17] MEDS ORDERED: Zofran 4 MG/2 ML VIAL IV ONE (09:52)
[2020-02-17] MEDS ORDERED: MORPHINE SULFATE 4 MG INJ IV ONE (09:52)
[2020-02-17] MEDS ORDERED: MORPHINE SULFATE 4 MG INJ ONE (09:57)
[2020-02-17] MEDS ORDERED: Sodium Chloride 0.9% 1000 ML 1,000 ML ONE ×2 (09:57→12:09)
[2020-02-17] MEDS ORDERED: Zofran 4 MG/2 ML VIAL ONE (09:57)
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
[2020-02-17 10:23] LABS: Absolute Neutrophil Ct (ANC) 10.58 (1.4-6.9); BASOPHIL % 0.2 % (0.0-0.4); Basophil (Absolute #) 0.02 (0-0.4); Eosinophil % 0.6 % (0.00-5.0); Eosinophil (Absolute #) 0.08 (0-0.5); Hematocrit 44.7 % (42-50); Hemoglobin 15.4 gm/dl (12.5-18.0); Lymphocytes % 8.7 % (24.0-44.0); Mean Corpuscular Hemoglobin 33.8 pg (26-32); Mean Corpuscular Hgb Concent. 34.5 g/dl (32-36); Mean Platelet Volume 9.6 fl (7.5-11.0); Monocyte (Absolute #) 0.91 (0.0-1.3); Monocytes % 7.2 % (0.0-12.0); Neutrophil % 83.3 % (36.0-66.0); Platelet Count 274 K/mm3 (150-450); Red Blood Count 4.56 M/mm3 (4.1-5.6); Red Cell Distribution Width 11.6 % (11.5-14.0); White Blood Count 12.7 K/mm3 (4.0-10.5)
[2020-02-17 10:24] LABS: Appearance SLIGHTLY CLOUDY (CLEAR); Bilirubin NEGATIVE (NEGATIVE); Blood NEGATIVE Ery/ul (0-5); Glucose NEGATIVE (NEGATIVE); Ketones SMALL (NEGATIVE); Leukocyte Esterase NEGATIVE (NEGATIVE); Mucus MODERATE /HPF (NEGATIVE); Nitrite NEGATIVE (NEGATIVE); Protein,Urine Dip 30 (Negative); Specific Gravity 1.033 (1.005-1.025); Urobilinogen 2 mg/dL (0-1)
[2020-02-17 10:29] LABS: ALBUMIN 4.7 g/dL (3.5-5.0); ALKALINE PHOSPHATASE 100 U/L (38-126); AMYLASE 302 U/L (30-110); ANION GAP 12.8 MEQ/L (5-15); BLOOD UREA NITROGEN 14 mg/dL (9-20); CHLORIDE 101 mmol/L (98-107); Calcium 9.9 mg/dL (8.4-10.2); Carbon Dioxide 25 mmol/L (22-30); Creatinine 1 0.79 mg/dL (0.66-1.25); EST GLOMERULAR FILTRATION RATE > 60.0 ML/MIN; Glucose 113 mg/dL (74-106); LIPASE 1754 U/L (23-300); Potassium 4.1 mmol/L (3.5-5.1); SGOT/AST 38 U/L (17-59); SGPT/ALT 101 U/L (0-50); SODIUM 135 mmol/L (137-145); Total Protein 8.1 g/dL (6.3-8.2)
[2020-02-17] MEDS ORDERED: Sodium Chloride 0.9% 1000 ML 1,000 ML IV SCH (12:00)
[2020-02-17] MEDS ORDERED: HUMALOG SQ PRN (12:52)
[2020-02-17] MEDS: MORPHINE SULFATE 4 MG INJ IV PRN ×2 (13:15→19:53)
--- NOTE | 2020-02-17 19:32 | XRAY ---
Indication: Abdomen pain. Pancreatitis. Multiple contiguous axial images obtained through the abdomen and pelvis using 80 cc Isovue 370 contrast Comparison: October 23, 2019. Lung bases remain clear. Heart is not enlarged. Noncontrasted stomach and bowel loops appear nonobstructed. Normal appendix. Head of the pancreas again appears edematous with peripancreatic stranding favoring acute pancreatitis. Pancreatic duct is now prominent up to 5 mm diameter. Adjacent duodenal wall thickening presumed reactive. No free fluid/air. Stable small left renal exophytic cyst not simple cyst in appearance. Remaining liver, gallbladder, spleen, adrenal glands, kidneys, ureters, bladder, and aorta appear unremarkable. No pathologic retroperitoneal lymphadenopathy. Osseous structures intact. Impression: 1. Again CT features favoring pancreatitis with now ductal dilatation as detailed. 2. Stable small left renal exophytic mass not simple cyst in appearance. Again MRI with contrast may yield further information. Comment: Preliminary interpretation was made by [facility]. No critical discrepancy.
[2020-02-17] MEDS: Sodium Chloride 0.9% 1000 ML 1,000 ML IV SCH (19:52)
[2020-02-18] MEDS: Sodium Chloride 0.9% 1000 ML 1,000 ML IV SCH ×4 (01:12→17:30)
[2020-02-18 05:57] LABS: ALBUMIN 3.6 g/dL (3.5-5.0); ALKALINE PHOSPHATASE 68 U/L (38-126); BLOOD UREA NITROGEN 11 mg/dL (9-20); CHLORIDE 108 mmol/L (98-107); Calcium 8.7 mg/dL (8.4-10.2); Carbon Dioxide 28 mmol/L (22-30); Creatinine 1 0.87 mg/dL (0.66-1.25); EST GLOMERULAR FILTRATION RATE > 60.0 ML/MIN; Glucose 97 mg/dL (74-106); LIPASE 424 U/L (23-300); Potassium 4.7 mmol/L (3.5-5.1); SGOT/AST 23 U/L (17-59); SGPT/ALT 60 U/L (0-50); SODIUM 138 mmol/L (137-145); Total Protein 6.3 g/dL (6.3-8.2)
[2020-02-18 05:59] LABS: Absolute Neutrophil Ct (ANC) 4.96 (1.4-6.9); BASOPHIL % 0.3 % (0.0-0.4); Basophil (Absolute #) 0.02 (0-0.4); Eosinophil % 3.6 % (0.00-5.0); Eosinophil (Absolute #) 0.26 (0-0.5); Hematocrit 39.1 % (42-50); Hemoglobin 13.6 gm/dl (12.5-18.0); Lymphocyte (Absolute #) 1.23 (1.0-4.6); Lymphocytes % 16.9 % (24.0-44.0); Mean Cell Volume 99.5 fl (78-100); Mean Corpuscular Hemoglobin 34.6 pg (26-32); Mean Corpuscular Hgb Concent. 34.8 g/dl (32-36); Mean Platelet Volume 9.6 fl (7.5-11.0); Monocyte (Absolute #) 0.82 (0.0-1.3); Monocytes % 11.2 % (0.0-12.0); Platelet Count 218 K/mm3 (150-450); Red Blood Count 3.93 M/mm3 (4.1-5.6); Red Cell Distribution Width 11.7 % (11.5-14.0); White Blood Count 7.3 K/mm3 (4.0-10.5)
[2020-02-18] MEDS ORDERED: Sodium Chloride 0.9% 1000 ML 1,000 ML ONE (06:05)
[2020-02-18] MEDS: MORPHINE SULFATE 4 MG INJ IV PRN (08:23)
[2020-02-18] MEDS ORDERED: NON-FORMULARY ITEM (Omeprazole [Omeprazole] 40 MG) PO SCH (10:00)
[2020-02-18] MEDS ORDERED: ESCITALOPRAM OXALATE 40 MG PO SCH (10:00)
[2020-02-18] MEDS ORDERED: PROTONIX 40 MG IV IV SCH (10:00)
[2020-02-18] MEDS: Lexapro 10 MG PO SCH (10:03)
[2020-02-18] MEDS: Protonix 40MG Tablet PO SCH (10:04)
[2020-02-18] MEDS: BUSPAR 5 MG PO SCH ×2 (10:04→21:21)
[2020-02-18] MEDS: ENOXAPARIN SODIUM SQ SCH (10:04)
[2020-02-18] MEDS: Wellbutrin XL 150 MG PO SCH (10:05)
--- NOTE | 2020-02-18 18:03 | PCM.HP ---
History of Present Illness - Chief Complaint Chief Complaint: acute pancreatitis History of Present Illness: is a 34 year old male seen and examined in the hospital today following ER admission for acute pancreatitis. Patient reports this is his third case of pancreatitis. He was symptomatic earlier in the week and then his symptoms went away. He reports on Tuesday he was having significant pain that started mid abdomen and then radiated up to epigastric/right upper quadrant area. Patient reports that he again felt better on Tuesday and was very active and then on Tuesday the pain was severe. He tried to use some heat packs to help with the pain but reports it got worse. He then came to the ER. He has had a decreased appetite. He reports that he had not had alcohol for about 2 weeks so he was surprised that he was having another episode. He does report heavy alcohol use in his early 20s. Patient reports that he has been nauseated. He tried to make himself vomit because he thought it would feel better but it did not. Patient denies any other medical problems except anxiety/depression. He does report that he was having symptoms related to GI bleed and Dr Moreno had him discontinue taking ibuprofen. Patient reports that after he stopped taking ibuprofen the dark stools went away. He takes omeprazole as well. Patient reports previous drug hx. Patient feels better this am. He would like to try to advance his diet. He has no other complaints or concerns. - Review of Systems Constitutional: No Fever Eyes: No Symptoms Ears, Nose, & Throat: No Symptoms Respiratory: No Symptoms Cardiac: No Symptoms Abdominal/Gastrointestinal: Abdominal Pain, Nausea, Vomiting (self induced x1), Appetite Changes, No Diarrhea, No Constipation Genitourinary Symptoms: No Symptoms Musculoskeletal: No Symptoms Skin: No Symptoms Neurological: No Symptoms Psychological: Anxiety, Depression, Other (hx of drug abuse) Medications & Allergies Home Medications: Home Medication List Bupropion HCl [Wellbutrin Xl] 150 mg PO DAILY 10/23/19 [History Confirmed 02/17/20] Buspirone HCl 5 mg PO BID 10/23/19 [History Confirmed 02/17/20] Escitalopram Oxalate [Lexapro] 40 mg PO DAILY 10/23/19 [History Confirmed 02/17/20] Omeprazole 40 mg PO DAILY 10/23/19 [History Confirmed 02/17/20] Allergies/Adverse Reactions: Allergies Allergy/AdvReac Type Severity Reaction Status Date / Time No Known Drug Allergies Allergy Verified 02/17/20 09:33 - Past Medical History Past Medical History: Yes Neurological History: No Pertinent History ENT History: No Pertinent History Cardiac History: No Pertinent History Respiratory History: No Pertinent History Endocrine Medical History: No Pertinent History GI Medical History: GERD, Pancreatitis, Other Pyscho-Social History: Anxiety, Depression - Past Surgical History Past Surgical History: No Other Surgical History: 3 sets of tubes in bilateral ears - Social History Smoking Status: Current every day smoker How long have you smoked: 0.5 Exposure to second hand smoke: Yes Alcohol: Occasionally Drug Use: none - Physical Exam Vital Signs: Vital Signs - 24 hr Temp Pulse Resp BP Pulse Ox 02/18/20 16:00 97.5 F 47 L 16 110/65 99 02/18/20 12:00 97.6 F 51 L 16 131/77 99 02/18/20 08:00 18 02/18/20 07:29 97.5 F 60 18 124/58 98 02/18/20 04:10 97.7 F 56 L 16 103/68 96 02/17/20 23:47 97.9 F 54 L 18 128/68 98 02/17/20 20:05 98.1 F 83 18 133/76 97 General Appearance: no apparent distress Neurologic Exam: alert, oriented x 3, cooperative, normal mood/affect Eye Exam: No scleral icterus Ears, Nose, Throat Exam: moist mucous membranes Neck Exam: normal inspection Respiratory Exam: normal breath sounds, lungs clear, No respiratory distress, No diminished breath sounds, No wheezing Cardiovascular Exam: regular rate/rhythm, normal heart sounds, No murmur, No friction rub, No gallop Gastrointestinal/Abdomen Exam: soft, normal bowel sounds, tenderness (epigastric), No distention Skin Exam: normal color, warm, dry, No rash Results - Labs Lab/Micro Results: Lab Results-Last 24 Hours 02/18/20 02/18/20 02/18/20 Range/Units 04:50 04:50 14:09 WBC 7.3 (4.0-10.5) K/mm3 RBC 3.93 L (4.1-5.6) M/mm3 Hgb 13.6 (12.5-18.0) gm/dl Hct 39.1 L (42-50) % MCV 99.5 (78-100) fl MCH 34.6 H (26-32) pg MCHC 34.8 (32-36) g/dl RDW 11.7 (11.5-14.0) % Plt Count 218 (150-450) K/mm3 MPV 9.6 (7.5-11.0) fl Gran % 68.0 H (36.0-66.0) % Eos # (Auto) 0.26 (0-0.5) Absolute Lymphs (auto) 1.23 (1.0-4.6) Absolute Monos (auto) 0.82 (0.0-1.3) Lymphocytes % 16.9 L (24.0-44.0) % Monocytes % 11.2 (0.0-12.0) % Eosinophils % 3.6 (0.00-5.0) % Basophils % 0.3 (0.0-0.4) % Absolute Granulocytes 4.96 (1.4-6.9) Basophils # 0.02 (0-0.4) Sodium 138 (137-145) mmol/L Potassium 4.7 (3.5-5.1) mmol/L Chloride 108 H (98-107) mmol/L Carbon Dioxide 28 (22-30) mmol/L Anion Gap 7.0 (5-15) MEQ/L BUN 11 (9-20) mg/dL Creatinine 0.87 (0.66-1.25) mg/dL Estimated GFR > 60.0 ML/MIN Glucose 97 (74-106) mg/dL Calcium 8.7 (8.4-10.2) mg/dL Total Bilirubin 0.80 (0.2-1.3) mg/dL AST 23 (17-59) U/L ALT 60 H (0-50) U/L Alkaline Phosphatase 68 (38-126) U/L Serum Total Protein 6.3 (6.3-8.2) g/dL Albumin 3.6 (3.5-5.0) g/dL Lipase 424 H 2343 H (23-300) U/L - Radiology Impressions Radiology Exams & Impressions: Radiology Procedures Category Date Time Status ABDOMEN AND PELVIS W CONTRAST [CT] Stat Exams 02/17/20 09:53 Completed Assessment/Plan (1) Pancreatic duct dilated Current Visit: Yes Status: Acute Assessment & Plan: Noted on ct scan. This is patient's 3rd case of pancreatitis. Will get MRCP in am. Case was discussed with general surgery. Will get consult and depending on results of MRCP will determine how to proceed with patient's treatment plan. Code(s): K86.89 - OTHER SPECIFIED DISEASES OF PANCREAS (2) Acute pancreatitis Current Visit: Yes Status: Acute Qualifiers: Pancreatitis type: unspecified pancreatitis type Acute pancreatitis complication: unspecified Qualified Code(s): K85.90 - Acute pancreatitis w ithout necrosis or infection, unspecified Assessment & Plan: Elevated lipase and symptomatic upon admission. Patient was given pain medication and is on IV fluids 200ml/hr. He feels his pain has improved and has not required any more pain medication this am. He would like to try to advance his diet. Repeat lipase ordered which was had trended initially down is now high er than on admission. Will not continue to advance diet at this time. Code(s): K85.90 - ACUTE PANCREATITIS WITHOUT NECROSIS OR INFECTION, UNSP (3) Elevated lipase Current Visit: No Status: Acute Code(s): R74.8 - ABNORMAL LEVELS OF OTHER SERUM ENZYMES (4) Renal mass, left Current Visit: No Status: Acute Assessment & Plan: Patient reports hx of renal mass that has been noted on imaging. Kidney function is wnl. He has had repeat imaging that has not shown any changes in the mass. He did report seeing Dr Alves for this in the past. Unsure if biopsy has been done. Code(s): N28.89 - OTHER SPECIFIED DISORDERS OF KIDNEY AND URETER (5) Anxiety and depression Current Visit: Yes Status: Acute Assessment & Plan: Will continue on routine home meds. Code(s): F41.9 - ANXIETY DISORDER, UNSPECIFIED; F32.9 - MAJOR DEPRESSIVE DISORDER, SINGLE EPISODE, UNSPECIFIED
[2020-02-19] MEDS: Sodium Chloride 0.9% 1000 ML 1,000 ML IV SCH ×3 (00:37→14:43)
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
[2020-02-19 09:55] LABS: Absolute Neutrophil Ct (ANC) 3.21 (1.4-6.9); BASOPHIL % 0.4 % (0.0-0.4); Basophil (Absolute #) 0.02 (0-0.4); Eosinophil % 4.9 % (0.00-5.0); Eosinophil (Absolute #) 0.25 (0-0.5); Hematocrit 39.4 % (42-50); Lymphocyte (Absolute #) 1.04 (1.0-4.6); Lymphocytes % 20.4 % (24.0-44.0); Mean Cell Volume 103.1 fl (78-100); Mean Platelet Volume 10.2 fl (7.5-11.0); Monocyte (Absolute #) 0.57 (0.0-1.3); Monocytes % 11.2 % (0.0-12.0); Neutrophil % 63.1 % (36.0-66.0); Platelet Count 204 K/mm3 (150-450); Red Blood Count 3.82 M/mm3 (4.1-5.6); Red Cell Distribution Width 11.6 % (11.5-14.0); White Blood Count 5.1 K/mm3 (4.0-10.5)
[2020-02-19 11:06] LABS: ALBUMIN 3.6 g/dL (3.5-5.0); ALKALINE PHOSPHATASE 59 U/L (38-126); ANION GAP 6.9 MEQ/L (5-15); BLOOD UREA NITROGEN 7 mg/dL (9-20); CHLORIDE 109 mmol/L (98-107); Calcium 9.1 mg/dL (8.4-10.2); Carbon Dioxide 28 mmol/L (22-30); Creatinine 1 0.84 mg/dL (0.66-1.25); EST GLOMERULAR FILTRATION RATE > 60.0 ML/MIN; Glucose 96 mg/dL (74-106); Potassium 4.4 mmol/L (3.5-5.1); SGOT/AST 23 U/L (17-59); SGPT/ALT 46 U/L (0-50); SODIUM 139 mmol/L (137-145); Total Protein 6.3 g/dL (6.3-8.2)
--- NOTE | 2020-02-19 13:36 | XRAY ---
Indication: Pancreatitis. Conventional MRCP performed. Comparison: None Biliary tree and common bile duct are normal. Pancreatic duct is mildly prominent up to 5 mm at the level of the head. There is no pancreatic duct mass. Head of the pancreas is mildly prominent with minimal edema favoring known pancreatitis. Left mid kidney demonstrates a 1 cm round exophytic mass, not simple cyst in signal. Remaining visualized liver, gallbladder, pancreas, spleen, adrenal glands, kidneys, proximal ureters, aorta, IVC, stomach, and bowel loops appear unremarkable. No abnormal bone marrow signal. Impression: 1. Mild nonspecific prominent pancreatic duct. Remaining MRCP is negative. 2. Well-circumscribed 1 cm left mid renal exophytic mass not simple cyst in signal. Finding unchanged with respect to first CT October 23, 2019. Consider follow-up monitoring CT in 6 months.
[2020-02-19] MEDS: ENOXAPARIN SODIUM SQ SCH (14:39)
[2020-02-19] MEDS: Wellbutrin XL 150 MG PO SCH (14:40)
[2020-02-19] MEDS: BUSPAR 5 MG PO SCH (14:40)
[2020-02-19] MEDS: Protonix 40MG Tablet PO SCH (14:40)
[2020-02-19] MEDS: Lexapro 10 MG PO SCH (14:40)
[2020-02-19 16:11] VITALS: BP 125/69
[2020-02-19 16:12] VITALS: PULSE 65; O2SAT 98
== END 2020-02-19 17:20 | disposition home or self-care (01) ==
LOC: ED 09:24 → MED SURG 12:49
PROVIDERS: ADMIT Family Medicine; ATTEND Family Medicine
DX: K85.90 Acute pancreatitis without necrosis or infection, unspecified (principal); K86.89 Other specified diseases of pancreas; Z79.899 Other long term (current) drug therapy; R74.8 Abnormal levels of other serum enzymes; N28.89 Other specified disorders of kidney and ureter; F41.8 Other specified anxiety disorders
CPT/HCPCS: 36000; 36415; 74177; 74181; 80053; 80307; 81001; 82150; 83036; 83690; 85025; 96360; 96374; 96375; 99285; G0378; J1650; J2270; J2405; A9270-GY; G0480

== ENCOUNTER 2020-05-09 06:38 | Emergency (ER) | payer MEDICAID, OTHER ==
[2020-05-09 07:12] VITALS: O2SAT 97
[2020-05-09] MEDS ORDERED: XYLOCAINE 1% HCL 20 ML MDV ONE (07:32)
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
[2020-05-09 07:55] VITALS: BP 128/95; PULSE 102
[2020-05-09] MEDS ORDERED: Adacel Vial IM ONE ×2 (07:55→07:56)
== END 2020-05-09 08:05 | disposition home or self-care (01) ==
LOC: ED 06:38
DX: S51.812A Laceration without foreign body of left forearm, initial encounter (principal); S71.012A Laceration without foreign body, left hip, initial encounter; W25.XXXA Contact with sharp glass, initial encounter
CPT/HCPCS: 12031; 12032; 90471; 90715; 96372; 99283

== ENCOUNTER 2020-12-21 00:26 | Emergency (ER) | payer MEDICAID, OTHER ==
[2020-12-21] MEDS ORDERED: TORAdol 30 mg Injection IM ONE (01:18)
[2020-12-21] MEDS ORDERED: Norflex 60 MG/2 ML IM ONE (01:19)
--- NOTE | 2020-12-21 01:19 | ERPHSYRPT ---
- History of Present Illness Time Seen by Provider: 12/21/20 01:13 Source: patient, family Exam Limitations: no limitations Physician History: pt had lac today repaired at [facility] , but has throbbing pain and did not resolve with OTC meds so came in . NV intact. Tendon fxn intact. no crepitance. wound without drainage or erythema. nontender. no allergies reported and no narc concerns. No other reported injuries. Occurred: this morning Method of Injury: incised Quality: throbbing Severity of Pain-Max: moderate Severity of Pain-Current: moderate Extremities Pain Location: forearm: left Modifying Factors: Improves With: immobilization, movement Associated Symptoms: none Allergies/Adverse Reactions: No Known Drug Allergies Allergy (Verified 12/21/20 01:04) Home Medications: Bupropion HCl [Wellbutrin Xl] 150 mg PO DAILY 10/23/19 [History] Buspirone HCl 5 mg PO BID 10/23/19 [History] Omeprazole 40 mg PO DAILY 10/23/19 [History] Hx Tetanus, Diphtheria Vaccination/Date Given: Yes (2018) Hx Influenza Vaccination/Date Given: No Hx Pneumococcal Vaccination/Date Given: No - Review of Systems Constitutional: No Fever, No Chills Eyes: No Symptoms Ears, Nose, & Throat: No Symptoms Respiratory: No Cough, No Dyspnea Cardiac: No Chest Pain, No Edema, No Syncope Abdominal/Gastrointestinal: No Abdominal Pain, No Nausea, No Vomiting, No Diarrhea Genitourinary Symptoms: No Dysuria Musculoskeletal: Injury (cut was into muscle), No Back Pain, No Neck Pain Skin: Other (incised wound left forearm), No Rash Neurological: No Dizziness, No Focal Weakness, No Sensory Changes Psychological: No Symptoms Endocrine: No Symptoms Hematologic/Lymphatic: No Symptoms Immunological/Allergic: No Symptoms All Other Systems: Reviewed and Negative - Past Medical History Pertinent Past Medical History: Yes Neurological History: No Pertinent History ENT History: No Pertinent History Cardiac History: No Pertinent History Respiratory History: No Pertinent History Endocrine Medical History: No Pertinent History Musculoskeletal History: No Pertinent History GI Medical History: GERD, Pancreatitis, Other History: No Pertinent History Psycho-Social History: Anxiety, Depression Male Reproductive Disorders: No Pertinent History Other Medical History: Sutures placed in left outside (Middle) forearm. - Past Surgical History Past Surgical History: Yes Neuro Surgical History: No Pertinent History Cardiac: No Pertinent History Respiratory: No Pertinent History Gastrointestinal: No Pertinent History Genitourinary: No Pertinent History Musculoskeletal: No Pertinent History Male Surgical History: No Pertinent History Other Surgical History: 3 sets of tubes in bilateral ears - Social History Smoking Status: Current every day smoker How long have you smoked: 2 Exposure to second hand smoke: Yes Drug Use: none Patient Lives Alone: No - Nursing Vital Signs Nursing Vital Signs: Initial Vital Signs Temperature 97.5 F 12/21/20 00:28 Pulse Rate 65 12/21/20 00:28 Respiratory Rate 20 12/21/20 00:28 Blood Pressure 130/90 12/21/20 00:28 O2 Sat by Pulse Oximetry 99 12/21/20 00:28 Pain Scale Pain Intensity 8 - Physical Exam General Appearance: alert Eyes, Ears, Nose, Throat Exam: moist mucous membranes Neck Exam: non-tender, supple Cardiovascular/Respiratory Exam: chest non-tender, normal breath sounds, regular rate/rhythm, no respiratory distress Abdominal Exam: non-tender, No guarding Back Exam: normal inspection, No vertebral tenderness Shoulder Exam: normal inspection, non-tender, no evidence of injury, normal ROM Elbow/Forearm Exam: pain (left forearm at incision) Wrist Exam: normal inspection, non-tender, no evidence of injury, normal ROM Hand Exam: normal inspection, non-tender, no evidence of injury, normal ROM DTR - Upper Extremity Exam: bicep (R): 2+, bicep (L): 2+, tricep (R): 2+, tricep (L): 2+ Neuro/Tendon Exam: normal sensation, normal motor functions, normal tendon functions Mental Status Exam: alert, oriented x 3, cooperative Skin Exam: normal color, warm, dry SpO2 Interpretation: normal SpO2: 99 O2 Delivery: Room Air - Course Nursing assessment & vital signs reviewed: Yes Ordered Tests: Medication Summary Discontinued Medications Generic Name Dose Route Start Last Admin Trade Name Freq PRN Reason Stop Dose Admin Hydrocodone Bitart/Acetaminophen 2 tab 12/21/20 01:20 Lena 5/325 Mg PO 12/21/20 01:21 STAT ONE Ketorolac Tromethamine 60 mg 12/21/20 01:18 Toradol 30 Mg Injection IM 12/21/20 01:19 STAT ONE Orphenadrine Citrate 60 mg 12/21/20 01:19 Norflex 60 Mg/2 Ml IM 12/21/20 01:20 STAT ONE - Progress Progress: improved, re-examined Counseled pt/family regarding: diagnosis, need for follow-up - Departure Departure Disposition: Home Clinical Impression: Post-operative pain, Laceration of left forearm Condition: Good Critical Care Time: No Referrals: RICHARD MONTES MD [Primary Care Provider] - Instructions: Surgical Wound (DC) Additional Instructions: follow up with Hand Dr Tuesday. Return meantime if signs of infection such as increased drainage, increased swelling , increased pain , increased redness or any other concerns. followup your blood pressure with your Dr as well. Prescriptions: Hydrocodone/Acetaminophen [Hydrocodone-Acetamin 5-325 mg] 1 tab PO Q6HPRN PRN #14 tablet MDD 4 PRN Reason: Pain Mupirocin [Bactroban OINTMENT] 22 gm TP DAILY #1 packet
[2020-12-21] MEDS ORDERED: NORCO 5/325 MG PO ONE (01:20)
[2020-12-21] MEDS ORDERED: Norflex 60 MG/2 ML ONE (01:33)
[2020-12-21] MEDS ORDERED: TORAdol 30 mg Injection ONE (01:33)
[2020-12-21] MEDS ORDERED: NORCO 5/325 MG ONE (01:34)
[2020-12-21 02:21] VITALS: O2SAT 97
[2020-12-21 02:23] VITALS: BP 96/87; PULSE 54
== END 2020-12-21 02:23 | disposition home or self-care (01) ==
LOC: ED 00:26
DX: G89.18 Other acute postprocedural pain (principal)
CPT/HCPCS: 96372; 99283; J1885; J2360; A9270-GY

== ENCOUNTER 2021-10-12 15:48 | Emergency (ER) | payer OTHER ==
--- NOTE | 2021-10-12 15:50 | ERPHSYRPT ---
- History of Present Illness Time Seen by Provider: 10/12/21 15:49 Historian: patient Exam Limitations: no limitations Physician History: This is a 36-year-old white male who presents with 8-day history of intermittent epigastric and right upper quadrant abdominal pain. He has had no vomiting. There were a few times where the pain he had was down in the suprapubic region when he attempted to urinate. He did have right sided flank pain as well. He has had similar symptoms in the past and he was diagnosed with pancreatitis. He has not had his gallbladder removed. He denies excessive alcohol use. He only drinks alcohol on occasion. He had no abdominal trauma. Patient does have a history of gastroesophageal reflux disease. In the last week he tried bowel rest at home and is still having the intermittent pain. Timing/Duration: day(s) (8) Quality: aching Abdominal Pain Onset Location: RUQ, epigastric, suprapubic (Occasional) Pain Radiation: flank (Right flank and mid back) Severity of Pain-Max: moderate Severity of Pain-Current: mild (To moderate) Modifying Factors: Improves With: nothing Associated Symptoms: denies symptoms Previous symptoms: same symptoms as today, no recent treatment Allergies/Adverse Reactions: No Known Drug Allergies Allergy (Verified 10/12/21 16:12) Home Medications: Omeprazole 40 mg PO DAILY 10/23/19 [History] Hx Tetanus, Diphtheria Vaccination/Date Given: Yes (2018) Hx Influenza Vaccination/Date Given: No Hx Pneumococcal Vaccination/Date Given: No Travel Risk - International Travel Have you traveled outside of the country in past 3 weeks: No - Coronavirus Screening Are you exhibiting any of the following symptoms?: No Close contact with a COVID-19 positive Pt in past 14-21 Days: No - Vaccine Status Have you recieved a Covid-19 vaccination: No - Review of Systems Constitutional: No Symptoms Eyes: No Symptoms Ears, Nose, & Throat: No Symptoms Respiratory: No Symptoms Cardiac: No Symptoms Abdominal/Gastrointestinal: Abdominal Pain, No Nausea, No Vomiting, No Diarrhea, No Constipation Genitourinary Symptoms: No Symptoms Musculoskeletal: Back Pain Skin: No Symptoms Neurological: No Symptoms Psychological: No Symptoms Endocrine: No Symptoms Hematologic/Lymphatic: No Symptoms Immunological/Allergic: No Symptoms - Past Medical History Pertinent Past Medical History: Yes Neurological History: No Pertinent History ENT History: No Pertinent History Cardiac History: No Pertinent History Respiratory History: No Pertinent History Endocrine Medical History: No Pertinent History Musculoskeletal History: No Pertinent History GI Medical History: GERD, Pancreatitis, Other History: No Pertinent History Psycho-Social History: Anxiety, Depression Male Reproductive Disorders: No Pertinent History Other Medical History: Sutures placed in left outside (Middle) forearm. - Past Surgical History Past Surgical History: Yes Neuro Surgical History: No Pertinent History Cardiac: No Pertinent History Respiratory: No Pertinent History Gastrointestinal: No Pertinent History Genitourinary: No Pertinent History Musculoskeletal: No Pertinent History Male Surgical History: No Pertinent History Other Surgical History: 3 sets of tubes in bilateral ears - Social History Smoking Status: Current every day smoker How long have you smoked: 2 Exposure to second hand smoke: Yes Drug Use: none Patient Lives Alone: No - Nursing Vital Signs Nursing Vital Signs: Initial Vital Signs Temperature 97.2 F 10/12/21 16:13 Pulse Rate 59 L 10/12/21 16:13 Respiratory Rate 18 10/12/21 16:13 Blood Pressure 197/94 10/12/21 16:13 O2 Sat by Pulse Oximetry 97 10/12/21 16:13 Pain Scale Pain Intensity 8 - Physical Exam General Appearance: no apparent distress, alert, anxiety Eye Exam: PERRL/EOMI, eyes nml inspection Ears, Nose, Throat Exam: normal ENT inspection, moist mucous membranes Neck Exam: normal inspection, non-tender, supple, full range of motion Respiratory Exam: normal breath sounds, lungs clear, airway intact, No chest tenderness, No respiratory distress Cardiovascular Exam: regular rate/rhythm, normal heart sounds, normal peripheral pulses Gastrointestinal/Abdomen Exam: soft, normal bowel sounds, tenderness (Epigastric and right upper quadrant to palpation), guarding (Mild with palpation in the right upper quadrant and epigastric area.) Rectal Exam: not done Back Exam: normal inspection, normal range of motion, No CVA tenderness, No vertebral tenderness Extremity Exam: normal inspection, normal range of motion, pelvis stable Neurologic Exam: alert, oriented x 3, cooperative, psychology intern II-XII nml as tested, normal mood/affect, nml cerebellar function, nml station & gait, sensation nml Skin Exam: normal color, warm, dry Lymphatic Exam: No adenopathy SpO2 Interpretation: normal O2 Delivery: Room Air - Course Nursing assessment & vital signs reviewed: Yes Ordered Tests: Active Orders 24 hr Category Date Time Status IV Insertion STAT Care 10/12/21 16:51 Active ABDOMEN AND PELVIS W/0 CONTRAS [CT] Stat Exams 10/12/21 16:52 Taken AMYLASE Stat Lab 10/12/21 16:59 Completed CBC W DIFF Stat Lab 10/12/21 16:59 Completed CMP Stat Lab 10/12/21 16:59 Completed LIPASE Stat Lab 10/12/21 16:59 Completed Lactic Acid Stat Lab 10/12/21 17:03 Completed TROPONIN Q3H Lab 10/12/21 16:55 Completed TROPONIN Q3H Lab 10/12/21 20:00 Ordered TROPONIN Q3H Lab 10/12/21 23:00 Ordered TROPONIN Q3H Lab 10/13/21 02:00 Ordered TROPONIN Q3H Lab 10/13/21 05:00 Ordered UA W/RFX CULTURE Stat Lab 10/12/21 16:59 Completed Medication Summary Discontinued Medications Generic Name Dose Route Start Last Admin Trade Name Freq PRN Reason Stop Dose Admin Hydromorphone HCl 1 mg 10/12/21 16:51 10/12/21 17:23 Hydromorphone 1 Mg/1ml Inj 1 Mg/Ml Syringe IV 10/12/21 16:52 1 mg STAT ONE Administration Hydromorphone HCl Confirm 10/12/21 17:21 Hydromorphone 1 Mg/1ml Inj 1 Mg/Ml Syringe Administered 10/12/21 17:22 Dose 1 mg .ROUTE .[facility]-MED ONE Sodium Chloride 1,000 mls @ 999 mls/hr 10/12/21 16:51 10/12/21 18:30 Sodium Chloride 0.9% 1000 Ml IV 10/12/21 17:51 Infused .Q1H1M STA Infusion Sodium Chloride Confirm 10/12/21 17:22 Sodium Chloride 0.9% 1000 Ml Administered 10/12/21 17:23 Dose 1,000 mls @ ud .ROUTE .STK-MED ONE Ketorolac Tromethamine 30 mg 10/12/21 18:01 10/12/21 18:36 Ketorolac Tromethamine 30 Mg/Ml Inj IV 10/12/21 18:02 Not Given STAT ONE Ondansetron HCl 4 mg 10/12/21 16:51 10/12/21 17:24 Ondansetron Hcl 4 Mg/2 Ml Vial IV 10/12/21 16:52 4 mg STAT ONE Administration Ondansetron HCl Confirm 10/12/21 17:21 Ondansetron Hcl 4 Mg/2 Ml Vial Administered 10/12/21 17:22 Dose 4 mg .ROUTE .[facility]-MED ONE Lab/Rad Data: Laboratory Result Diagrams 10/12/21 16:59 10/12/21 16:59 Laboratory Results 10/12/21 10/12/21 10/12/21 Range/Units 17:03 16:59 16:59 WBC (4.0-10.5) x10^3/uL RBC (4.1-5.6) x10^6/uL Hgb (12.5-18.0) g/dL Hct (42-50) % MCV (78-100) fL MCH (26-32) pg MCHC (32-36) g/dL RDW (11.5-14.0) % Plt Count (150-450) x10^3/uL MPV (7.5-11.0) fL Gran % (36.0-66.0) % Immature Gran % (Auto) (0.00-0.4) % Nucleat RBC Rel Count (0.00-0.1) % Eos # (Auto) (0-0.5) x10^3/uL Immature Gran # (Auto) (0.00-0.03) x10^3u/L Absolute Lymphs (auto) (1.0-4.6) x10^3/uL Absolute Monos (auto) (0.0-1.3) x10^3/uL Absolute Nucleated RBC (0.00-0.01) x10^3u/L Lymphocytes % (24.0-44.0) % Monocytes % (0.0-12.0) % Eosinophils % (0.00-5.0) % Basophils % (0.0-0.4) % Absolute Granulocytes (1.4-6.9) x10^3/uL Basophils # (0-0.4) x10^3/uL Sodium 137 (137-145) mmol/L Potassium 4.0 (3.5-5.1) mmol/L Chloride 100 (98-107) mmol/L Carbon Dioxide 29 (22-30) mmol/L Anion Gap 11.9 (5-15) MEQ/L BUN 4 L (9-20) mg/dL Creatinine 0.75 (0.66-1.25) mg/dL Estimated GFR > 60.0 ML/MIN Glucose 153 H (74-106) mg/dL Lactic Acid 1.4 (0.4-2.0) Calcium 9.8 (8.4-10.2) mg/dL Total Bilirubin 0.60 (0.2-1.3) mg/dL AST 21 (17-59) U/L ALT 30 (0-50) U/L Alkaline Phosphatase 64 (38-126) U/L Troponin I (0.000-0.034) ng/mL Serum Total Protein 7.3 (6.3-8.2) g/dL Albumin 4.4 (3.5-5.0) g/dL Amylase 245 H (30-110) U/L Lipase 2659 H (23-300) U/L Urinalys Dipstick Clnc MAIN LAB Urine Color YELLOW (YELLOW) Urine Appearance CLEAR (CLEAR) Urine pH 7.0 (5-6) Ur Specific Thomas 1.010 (1.005-1.025) POC Urine Protein Conf NEGATIVE (Negative) Urine Ketones NEGATIVE (NEGATIVE) Urine Nitrite NEGATIVE (NEGATIVE) Urine Bilirubin NEGATIVE (NEGATIVE) Urine Urobilinogen 0.2 (0-1) mg/dL Urine Leukocytes NEGATIVE (NEGATIVE) Urine WBC (Auto) NONE (0-5) /HPF Urine RBC (Auto) NONE (0-2) /HPF U Epithel Cells (Auto) NONE (FEW) /HPF Urine Bacteria (Auto) NONE (NEGATIVE) /HPF Urine RBC NEGATIVE (0-5) Bill/ul Ur Culture Indicated? NO Urine Glucose NEGATIVE (NEGATIVE) mg/dL 10/12/21 10/12/21 Range/Units 16:59 16:55 WBC 7.6 (4.0-10.5) x10^3/uL RBC 4.44 (4.1-5.6) x10^6/uL Hgb 14.5 (12.5-18.0) g/dL Hct 43.1 (42-50) % MCV 97.1 (78-100) fL MCH 32.7 H (26-32) pg MCHC 33.6 (32-36) g/dL RDW 11.9 (11.5-14.0) % Plt Count 214 (150-450) x10^3/uL MPV 9.5 (7.5-11.0) fL Gran % 70.2 H (36.0-66.0) % Immature Gran % (Auto) 0.1 (0.00-0.4) % Nucleat RBC Rel Count 0.0 (0.00-0.1) % Eos # (Auto) 0.15 (0-0.5) x10^3/uL Immature Gran # (Auto) 0.01 (0.00-0.03) x10^3u/L Absolute Lymphs (auto) 1.35 (1.0-4.6) x10^3/uL Absolute Monos (auto) 0.72 (0.0-1.3) x10^3/uL Absolute Nucleated RBC 0.00 (0.00-0.01) x10^3u/L Lymphocytes % 17.8 L (24.0-44.0) % Monocytes % 9.5 (0.0-12.0) % Eosinophils % 2.0 (0.00-5.0) % Basophils % 0.4 (0.0-0.4) % Absolute Granulocytes 5.34 (1.4-6.9) x10^3/uL Basophils # 0.03 (0-0.4) x10^3/uL Sodium (137-145) mmol/L Potassium (3.5-5.1) mmol/L Chloride (98-107) mmol/L Carbon Dioxide (22-30) mmol/L Anion Gap (5-15) MEQ/L BUN (9-20) mg/dL Creatinine (0.66-1.25) mg/dL Estimated GFR ML/MIN Glucose (74-106) mg/dL Lactic Acid (0.4-2.0) Calcium (8.4-10.2) mg/dL Total Bilirubin (0.2-1.3) mg/dL AST (17-59) U/L ALT (0-50) U/L Alkaline Phosphatase (38-126) U/L Troponin I < 0.012 (0.000-0.034) ng/mL Serum Total Protein (6.3-8.2) g/dL Albumin (3.5-5.0) g/dL Amylase (30-110) U/L Lipase (23-300) U/L Urinalys Dipstick Clnc Urine Color (YELLOW) Urine Appearance (CLEAR) Urine pH (5-6) Ur Specific Thomas (1.005-1.025) POC Urine Protein Conf (Negative) Urine Ketones (NEGATIVE) Urine Nitrite (NEGATIVE) Urine Bilirubin (NEGATIVE) Urine Urobilinogen (0-1) mg/dL Urine Leukocytes (NEGATIVE) Urine WBC (Auto) (0-5) /HPF Urine RBC (Auto) (0-2) /HPF U Epithel Cells (Auto) (FEW) /HPF Urine Bacteria (Auto) (NEGATIVE) /HPF Urine RBC (0-5) Bill/ul Ur Culture Indicated? Urine Glucose (NEGATIVE) mg/dL - Progress Progress: improved, pain not gone completely, re-examined Progress Note: 10/12/21 18:42 CAT scan of the abdomen pelvis without contrast shows recurrent mild pancreatitis of the head of the pancreas without free fluid or air. There is a stable small benign-appearing left mid renal exophytic mass. 10/12/21 19:03 Medical decision making: This patient states that his symptoms have improved. He does have evidence of mild acute pancreatitis in the head of the pancreas as well as elevated amylase and lipase levels. Patient is adamant that he is not going to be transferred to another facility or admitted. He has to go to work. He states that he is dealt with this many times and he will put himself on clear liquid diet and will not advance his diet until he has no pain on clear liquid diet. He will return to the emergency department if his symptoms worsen. Counseled pt/family regarding: lab results, diagnosis, need for follow-up, rad results - Departure Departure Disposition: Home Clinical Impression: Pancreatitis, Acute pancreatitis Condition: Stable Critical Care Time: No Referrals: CATY FREEDMAN [Primary Care Provider] - Follow up/PCP as directed Additional Instructions: Clear liquid diet. Do not advance her diet until you are free of pain and tolerating a clear liquid diet well. Return to the emergency department if symptoms worsen. Prescriptions: Hydrocodone/APAP 5/325 [Marathon 5/325 mg] 1 each PO Q8H PRN PRN #6 tablet MDD 3 PRN Reason: Pain
[2021-10-12] MEDS ORDERED: Hydromorphone 1 mg/ml Injection IV ONE (16:51)
[2021-10-12] MEDS ORDERED: Sodium Chloride 0.9% 1000 ML 1,000 ML IV STA (16:51)
[2021-10-12] MEDS ORDERED: Zofran 4 MG/2 ML VIAL IV ONE (16:51)
[2021-10-12 17:09] LABS: Appearance CLEAR (CLEAR); Bilirubin NEGATIVE (NEGATIVE); Dipstick done @ ? MAIN LAB; Glucose NEGATIVE (NEGATIVE); Ketones NEGATIVE (NEGATIVE); Nitrite NEGATIVE (NEGATIVE); Protein,Urine Dip NEGATIVE (Negative); RBC NEGATIVE Ery/ul (0-5); Urobilinogen 0.2 mg/dL (0-1)
[2021-10-12 17:11] LABS: Urine Cultured Indicated? NO
[2021-10-12] MEDS ORDERED: Hydromorphone 1 mg/ml Injection ONE (17:21)
[2021-10-12] MEDS ORDERED: Zofran 4 MG/2 ML VIAL ONE (17:21)
[2021-10-12] MEDS ORDERED: Sodium Chloride 0.9% 1000 ML 1,000 ML ONE (17:22)
[2021-10-12 17:29] LABS: ALBUMIN 4.4 g/dL (3.5-5.0); ALKALINE PHOSPHATASE 64 U/L (38-126); AMYLASE 245 U/L (30-110); ANION GAP 11.9 MEQ/L (5-15); BLOOD UREA NITROGEN 4 mg/dL (9-20); CHLORIDE 100 mmol/L (98-107); Calcium 9.8 mg/dL (8.4-10.2); Carbon Dioxide 29 mmol/L (22-30); Creatinine 1 0.75 mg/dL (0.66-1.25); EST GLOMERULAR FILTRATION RATE > 60.0 ML/MIN; Glucose 153 mg/dL (74-106); SGOT/AST 21 U/L (17-59); SGPT/ALT 30 U/L (0-50); SODIUM 137 mmol/L (137-145); Total Protein 7.3 g/dL (6.3-8.2)
[2021-10-12] MEDS ORDERED: TORAdol 30 mg Injection IV ONE (18:01)
[2021-10-12 18:12] LABS: LIPASE 2659 U/L (23-300)
[2021-10-12 18:18] LABS: Absolute Neutrophil Ct (ANC) 5.34 x10^3/uL (1.4-6.9); Basophil (Absolute #) 0.03 x10^3/uL (0-0.4); Eosinophil (Absolute #) 0.15 x10^3/uL (0-0.5); Hematocrit 43.1 % (42-50); Hemoglobin 14.5 g/dL (12.5-18.0); Lymphocyte (Absolute #) 1.35 x10^3/uL (1.0-4.6); Lymphocytes % 17.8 % (24.0-44.0); Mean Cell Volume 97.1 fL (78-100); Mean Corpuscular Hemoglobin 32.7 pg (26-32); Mean Corpuscular Hgb Concent. 33.6 g/dL (32-36); Mean Platelet Volume 9.5 fL (7.5-11.0); Monocyte (Absolute #) 0.72 x10^3/uL (0.0-1.3); Monocytes % 9.5 % (0.0-12.0); Neutrophil % 70.2 % (36.0-66.0); Platelet Count 214 x10^3/uL (150-450); Red Blood Count 4.44 x10^6/uL (4.1-5.6); Red Cell Distribution Width 11.9 % (11.5-14.0); White Blood Count 7.6 x10^3/uL (4.0-10.5)
[2021-10-12 19:12] VITALS: BP 148/82; PULSE 56; O2SAT 96
--- NOTE | 2021-10-13 08:39 | XRAY ---
Indication: Abdomen pain 8 days. History of pancreatitis. Multiple contiguous axial images obtained through the abdomen and pelvis without contrast. Comparison: February 17, 2020. Lung bases clear. Heart not enlarged. Noncontrasted stomach and bowel loops appear nonobstructed with normal appendix. Head and uncinate process of pancreas again demonstrates mild edema with mild peripancreatic stranding favoring pancreatitis. Pancreatic head punctate calcification favors chronic pancreatitis. No free fluid/air. Stable small benign left mid renal exophytic mass. Remaining liver, gallbladder, spleen, adrenal glands, kidneys, ureters, bladder, and aorta are unremarkable for noncontrast exam. Osseous structures intact. Impression: 1. Recurrent mild pancreatitis. No free fluid/air. Incidental chronic pancreatitis calcification. 2. Stable benign left renal exophytic mass.
== END 2021-10-12 19:13 | disposition home or self-care (01) ==
LOC: ED 15:48
DX: K85.90 Acute pancreatitis without necrosis or infection, unspecified (principal); R10.11 Right upper quadrant pain; R10.13 Epigastric pain; Z72.0 Tobacco use; Z28.310 Unvaccinated for COVID-19; Z79.891 Long term (current) use of opiate analgesic
CPT/HCPCS: 36000; 36415; 74176; 80053; 81015; 82150; 83605; 83690; 84484; 85025; 96360; 96374; 96375; 99284; J1170; J2405

== ENCOUNTER 2022-02-14 11:24 | Emergency (ER) | payer OTHER, BC ==
[2022-02-14] MEDS ORDERED: Zofran 4 MG/2 ML VIAL IV ONE (11:39)
[2022-02-14] MEDS ORDERED: PROTONIX 40 MG IV IV ONE ×2 (11:39→11:50)
[2022-02-14] MEDS ORDERED: MORPHINE SULFATE 4 MG INJ IV ONE (11:39)
[2022-02-14] MEDS ORDERED: Pepcid 20 MG VIAL IV ONE ×2 (11:39→11:50)
[2022-02-14] MEDS ORDERED: Sodium Chloride 0.9% 1000 ML 1,000 ML IV STA (11:39)
--- NOTE | 2022-02-14 11:39 | ERPHSYRPT ---
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 Has LUQ pain and tenderness on exam today, since yesterday. No hx GB dx, but sais he did drink Etoh when younger , none recently. Timing/Duration: yesterday Activities at Onset: none Quality: burning, sharpness Abdominal Pain Onset Location: LUQ, epigastric Pain Radiation: LUQ Severity of Pain-Max: moderate Severity of Pain-Current: moderate Modifying Factors: Improves With: nothing Associated Symptoms: nausea, vomiting Previous symptoms: same symptoms as today, no recent treatment Allergies/Adverse Reactions: No Known Drug Allergies Allergy (Verified 02/14/22 11:43) Home Medications: Omeprazole 40 mg PO DAILY 10/23/19 [History] Hx Tetanus, Diphtheria Vaccination/Date Given: Yes (2018) Hx Influenza Vaccination/Date Given: No Hx Pneumococcal Vaccination/Date Given: No Travel Risk - Vaccine Status Have you recieved a Covid-19 vaccination: No - Review of Systems Constitutional: No Fever, No Chills Eyes: No Symptoms Ears, Nose, & Throat: No Symptoms Respiratory: No Cough, No Dyspnea Cardiac: No Chest Pain, No Edema, No Syncope Abdominal/Gastrointestinal: Abdominal Pain, Nausea, Vomiting, No Diarrhea Genitourinary Symptoms: No Dysuria Musculoskeletal: No Back Pain, No Neck Pain Skin: No Rash Neurological: No Dizziness, No Focal Weakness, No Sensory Changes Psychological: No Symptoms Endocrine: No Symptoms Hematologic/Lymphatic: No Symptoms Immunological/Allergic: No Symptoms All Other Systems: Reviewed and Negative - Past Medical History Pertinent Past Medical History: Yes Neurological History: No Pertinent History ENT History: No Pertinent History Cardiac History: No Pertinent History Respiratory History: No Pertinent History Endocrine Medical History: No Pertinent History Musculoskeletal History: No Pertinent History GI Medical History: GERD, Pancreatitis, Other History: No Pertinent History Psycho-Social History: Anxiety, Depression Male Reproductive Disorders: No Pertinent History Other Medical History: Sutures placed in left outside (Middle) forearm. - Past Surgical History Past Surgical History: Yes Neuro Surgical History: No Pertinent History Cardiac: No Pertinent History Respiratory: No Pertinent History Gastrointestinal: No Pertinent History Genitourinary: No Pertinent History Musculoskeletal: No Pertinent History Male Surgical History: No Pertinent History Other Surgical History: 3 sets of tubes in bilateral ears - Social History Smoking Status: Current every day smoker How long have you smoked: 2 Exposure to second hand smoke: Yes Drug Use: none Patient Lives Alone: No - Nursing Vital Signs Nursing Vital Signs: Initial Vital Signs Temperature 98 F 02/14/22 11:30 Pulse Rate 98 H 02/14/22 11:30 Respiratory Rate 20 02/14/22 11:30 Blood Pressure 155/91 02/14/22 11:30 O2 Sat by Pulse Oximetry 98 02/14/22 11:30 Pain Scale Pain Intensity 3 - Physical Exam General Appearance: no apparent distress, alert Eye Exam: PERRL/EOMI, eyes nml inspection Ears, Nose, Throat Exam: normal ENT inspection, pharynx normal, moist mucous membranes Neck Exam: normal inspection, non-tender, supple, full range of motion Respiratory Exam: normal breath sounds, lungs clear, No respiratory distress Cardiovascular Exam: regular rate/rhythm, normal heart sounds Gastrointestinal/Abdomen Exam: soft, tenderness (LUQ), No mass Rectal Exam: deferred Back Exam: normal inspection, normal range of motion, No CVA tenderness, No vertebral tenderness Extremity Exam: normal inspection, normal range of motion, pelvis stable Neurologic Exam: alert, oriented x 3, cooperative, normal mood/affect, nml cerebellar function, sensation nml, No motor deficits Skin Exam: normal color, warm, dry - Course Nursing assessment & vital signs reviewed: Yes EKG Interpreted by Me: Sinus Rhythm, NORMAL AXIS, NORMAL INTERVALS, NORMAL QRS, NORMAL ST-T - CT Exams Abdomen/Pelvis CT Interpretation: Tele-radiologist Report, No appendicitis, Other (pancreatic duct dilation and hypodensity and enlargement) Ordered Tests: Active Orders 24 hr Category Date Time Status EKG-ER Only STAT Care 02/14/22 11:39 Active IV Insertion STAT Care 02/14/22 11:39 Active ABDOMEN AND PELVIS W/0 CONTRAS [CT] Stat Exams 02/14/22 11:40 Taken AMYLASE Stat Lab 02/14/22 11:50 Completed CBC W DIFF Stat Lab 02/14/22 11:50 Completed CMP Stat Lab 02/14/22 11:50 Completed LIPASE Stat Lab 02/14/22 11:50 Completed Lactic Acid Stat Lab 02/14/22 11:50 Completed TROPONIN Q4H Lab 02/14/22 11:50 Completed TROPONIN Q4H Lab 02/14/22 15:45 Ordered TROPONIN Q4H Lab 02/14/22 19:45 Ordered UA W/RFX CULTURE Stat Lab 02/14/22 11:50 Completed Medication Summary Discontinued Medications Generic Name Dose Route Start Last Admin Trade Name Sebastian PRN Reason Stop Dose Admin Famotidine 20 mg 02/14/22 11:39 02/14/22 11:55 Famotidine 20 Mg/1 Vial IV 02/14/22 11:40 20 mg STAT ONE Administration Famotidine Confirm 02/14/22 11:50 Famotidine 20 Mg/1 Vial Administered 02/14/22 11:51 Dose 20 mg IV .STK-MED ONE Sodium Chloride 1,000 mls @ 999 mls/hr 02/14/22 11:39 02/14/22 13:27 Sodium Chloride 0.9% 1000 Ml IV 02/14/22 12:39 Infused .Q1H1M STA Infusion Sodium Chloride Confirm 02/14/22 11:51 Sodium Chloride 0.9% 1000 Ml Administered 02/14/22 11:52 Dose 1,000 mls @ ud .ROUTE .STK-MED ONE Morphine Sulfate 4 mg 02/14/22 11:39 02/14/22 12:00 Morphine Sulfate 4 Mg/Ml Injection IV 02/14/22 11:40 4 mg STAT ONE Administration Morphine Sulfate Confirm 02/14/22 11:50 Morphine Sulfate 4 Mg/Ml Injection Administered 02/14/22 11:51 Dose 4 mg .ROUTE .STK-MED ONE Ondansetron HCl 4 mg 02/14/22 11:39 02/14/22 11:53 Ondansetron Hcl 4 Mg/2 Ml Vial IV 02/14/22 11:40 4 mg STAT ONE Administration Ondansetron HCl Confirm 02/14/22 11:50 Ondansetron Hcl 4 Mg/2 Ml Vial Administered 02/14/22 11:51 Dose 4 mg .ROUTE .STK-MED ONE Pantoprazole Sodium 40 mg 02/14/22 11:39 02/14/22 11:57 Pantoprazole 40 Mg Vial IV 02/14/22 11:40 40 mg STAT ONE Administration Pantoprazole Sodium Confirm 02/14/22 11:50 Pantoprazole 40 Mg Vial Administered 02/14/22 11:51 Dose 40 mg IV .STK-MED ONE Lab/Rad Data: Laboratory Result Diagrams 02/14/22 11:50 02/14/22 11:50 Laboratory Results 02/14/22 02/14/22 02/14/22 Range/Units 11:50 11:50 11:50 WBC (4.0-10.5) x10^3/uL RBC (4.1-5.6) x10^6/uL Hgb (12.5-18.0) g/dL Hct (42-50) % MCV (78-100) fL MCH (26-32) pg MCHC (32-36) g/dL RDW (11.5-14.0) % Plt Count (150-450) x10^3/uL MPV (7.5-11.0) fL Gran % (36.0-66.0) % Immature Gran % (Auto) (0.00-0.4) % Nucleat RBC Rel Count (0.00-0.1) % Eos # (Auto) (0-0.5) x10^3/uL Immature Gran # (Auto) (0.00-0.03) x10^3u/L Absolute Lymphs (auto) (1.0-4.6) x10^3/uL Absolute Monos (auto) (0.0-1.3) x10^3/uL Absolute Nucleated RBC (0.00-0.01) x10^3u/L Lymphocytes % (24.0-44.0) % Monocytes % (0.0-12.0) % Eosinophils % (0.00-5.0) % Basophils % (0.0-0.4) % Absolute Granulocytes (1.4-6.9) x10^3/uL Basophils # (0-0.4) x10^3/uL Sodium 137 (137-145) mmol/L Potassium 3.8 (3.5-5.1) mmol/L Chloride 104 (98-107) mmol/L Carbon Dioxide 23 (22-30) mmol/L Anion Gap 12.9 (5-15) MEQ/L BUN 9 (9-20) mg/dL Creatinine 0.88 (0.66-1.25) mg/dL Estimated GFR > 60.0 ML/MIN Glucose 200 H (74-106) mg/dL Lactic Acid (0.4-2.0) Calcium 8.8 (8.4-10.2) mg/dL Total Bilirubin 0.60 (0.2-1.3) mg/dL AST 24 (17-59) U/L ALT 31 (0-50) U/L Alkaline Phosphatase 56 (38-126) U/L Troponin I < 0.012 (0.000-0.034) ng/mL Serum Total Protein 6.7 (6.3-8.2) g/dL Albumin 4.1 (3.5-5.0) g/dL Amylase 116 H (30-110) U/L Lipase 910 H (23-300) U/L Urinalys Dipstick Clnc MAIN LAB Urine Color YELLOW (YELLOW) Urine Appearance CLEAR (CLEAR) Urine pH 5.5 (5-6) Ur Specific [place] >=1.030 (1.005-1.025) POC Urine Protein Conf NEGATIVE (Negative) Urine Ketones NEGATIVE (NEGATIVE) Urine Nitrite NEGATIVE (NEGATIVE) Urine Bilirubin SMALL (NEGATIVE) Urine Urobilinogen 0.2 (0-1) mg/dL Urine Leukocytes NEGATIVE (NEGATIVE) Urine WBC (Auto) 0-2 (0-5) /HPF Urine RBC (Auto) NONE (0-2) /HPF U Hyaline Cast (Auto) 0-2 (0-2) /LPF U Epithel Cells (Auto) NONE (FEW) /HPF Urine Bacteria (Auto) NONE (NEGATIVE) /HPF Urine RBC NEGATIVE (0-5) Bill/ul Urine Mucus (Auto) MODERATE (NEGATIVE) /HPF Ur Culture Indicated? NO Urine Glucose NEGATIVE (NEGATIVE) mg/dL 02/14/22 02/14/22 Range/Units 11:50 11:50 WBC 5.1 (4.0-10.5) x10^3/uL RBC 4.64 (4.1-5.6) x10^6/uL Hgb 15.4 (12.5-18.0) g/dL Hct 45.2 (42-50) % MCV 97.4 (78-100) fL MCH 33.2 H (26-32) pg MCHC 34.1 (32-36) g/dL RDW 11.8 (11.5-14.0) % Plt Count 196 (150-450) x10^3/uL MPV 9.1 (7.5-11.0) fL Gran % 55.6 (36.0-66.0) % Immature Gran % (Auto) 0.2 (0.00-0.4) % Nucleat RBC Rel Count 0.0 (0.00-0.1) % Eos # (Auto) 0.17 (0-0.5) x10^3/uL Immature Gran # (Auto) 0.01 (0.00-0.03) x10^3u/L Absolute Lymphs (auto) 1.47 (1.0-4.6) x10^3/uL Absolute Monos (auto) 0.56 (0.0-1.3) x10^3/uL Absolute Nucleated RBC 0.00 (0.00-0.01) x10^3u/L Lymphocytes % 29.1 (24.0-44.0) % Monocytes % 11.1 (0.0-12.0) % Eosinophils % 3.4 (0.00-5.0) % Basophils % 0.6 (0.0-0.4) % Absolute Granulocytes 2.82 (1.4-6.9) x10^3/uL Basophils # 0.03 (0-0.4) x10^3/uL Sodium (137-145) mmol/L Potassium (3.5-5.1) mmol/L Chloride (98-107) mmol/L Carbon Dioxide (22-30) mmol/L Anion Gap (5-15) MEQ/L BUN (9-20) mg/dL Creatinine (0.66-1.25) mg/dL Estimated GFR ML/MIN Glucose (74-106) mg/dL Lactic Acid 1.9 (0.4-2.0) Calcium (8.4-10.2) mg/dL Total Bilirubin (0.2-1.3) mg/dL AST (17-59) U/L ALT (0-50) U/L Alkaline Phosphatase (38-126) U/L Troponin I (0.000-0.034) ng/mL Serum Total Protein (6.3-8.2) g/dL Albumin (3.5-5.0) g/dL Amylase (30-110) U/L Lipase (23-300) U/L Urinalys Dipstick Clnc Urine Color (YELLOW) Urine Appearance (CLEAR) Urine pH (5-6) Ur Specific [place] (1.005-1.025) POC Urine Protein Conf (Negative) Urine Ketones (NEGATIVE) Urine Nitrite (NEGATIVE) Urine Bilirubin (NEGATIVE) Urine Urobilinogen (0-1) mg/dL Urine Leukocytes (NEGATIVE) Urine WBC (Auto) (0-5) /HPF Urine RBC (Auto) (0-2) /HPF U Hyaline Cast (Auto) (0-2) /LPF U Epithel Cells (Auto) (FEW) /HPF Urine Bacteria (Auto) (NEGATIVE) /HPF Urine RBC (0-5) Bill/ul Urine Mucus (Auto) (NEGATIVE) /HPF Ur Culture Indicated? Urine Glucose (NEGATIVE) mg/dL - Progress Progress: improved, re-examined Progress Note: 02/14/22 13:52 discussed pancreatitis with pt and that it is potentially serious and even deadly and offered admission for Tx. He wishes to decline at this time and has still been able to tolerate pain and take fluids and keep them done without further vomiting. He declines pain meds and take home zofran at this time and will see his tomorrow for F/U and has the capacity to make this choice having normal mental status. Counseled pt/family regarding: lab results, diagnosis, need for follow-up, rad results - Departure Departure Disposition: Home Clinical Impression: Pancreatic duct dilated, Chronic recurrent pancreatitis Condition: Good Critical Care Time: No Referrals: CATY FREEDMAN [Primary Care Provider] - Follow up/PCP as directed Instructions: Chronic Pancreatitis (DC), Acute Pancreatitis Additional Instructions: Resume your stomach antacid medications. Continue clear liquid diet the next 2 days. See your DrJustin for recheck tomorrow as planned. Return meantime if any concerns, more severe pain, vomiting or other concerns since pancreatitis can progress to an even more serious condition with complications.
[2022-02-14 11:42] VITALS: O2SAT 98
[2022-02-14] MEDS ORDERED: Zofran 4 MG/2 ML VIAL ONE (11:50)
[2022-02-14] MEDS ORDERED: MORPHINE SULFATE 4 MG INJ ONE (11:50)
[2022-02-14] MEDS ORDERED: Sodium Chloride 0.9% 1000 ML 1,000 ML ONE (11:51)
[2022-02-14 11:54] LABS: Absolute Neutrophil Ct (ANC) 2.82 x10^3/uL (1.4-6.9); Basophil (Absolute #) 0.03 x10^3/uL (0-0.4); Eosinophil % 3.4 % (0.00-5.0); Eosinophil (Absolute #) 0.17 x10^3/uL (0-0.5); Hematocrit 45.2 % (42-50); Hemoglobin 15.4 g/dL (12.5-18.0); Lymphocyte (Absolute #) 1.47 x10^3/uL (1.0-4.6); Lymphocytes % 29.1 % (24.0-44.0); Mean Cell Volume 97.4 fL (78-100); Mean Corpuscular Hemoglobin 33.2 pg (26-32); Mean Corpuscular Hgb Concent. 34.1 g/dL (32-36); Mean Platelet Volume 9.1 fL (7.5-11.0); Monocyte (Absolute #) 0.56 x10^3/uL (0.0-1.3); Monocytes % 11.1 % (0.0-12.0); Neutrophil % 55.6 % (36.0-66.0); Platelet Count 196 x10^3/uL (150-450); Red Blood Count 4.64 x10^6/uL (4.1-5.6); Red Cell Distribution Width 11.8 % (11.5-14.0); White Blood Count 5.1 x10^3/uL (4.0-10.5)
[2022-02-14 12:08] LABS: ALBUMIN 4.1 g/dL (3.5-5.0); ALKALINE PHOSPHATASE 56 U/L (38-126); AMYLASE 116 U/L (30-110); ANION GAP 12.9 MEQ/L (5-15); BLOOD UREA NITROGEN 9 mg/dL (9-20); CHLORIDE 104 mmol/L (98-107); Calcium 8.8 mg/dL (8.4-10.2); Carbon Dioxide 23 mmol/L (22-30); Creatinine 1 0.88 mg/dL (0.66-1.25); EST GLOMERULAR FILTRATION RATE > 60.0 ML/MIN; Glucose 200 mg/dL (74-106); LIPASE 910 U/L (23-300); Potassium 3.8 mmol/L (3.5-5.1); SGOT/AST 24 U/L (17-59); SGPT/ALT 31 U/L (0-50); SODIUM 137 mmol/L (137-145); Total Protein 6.7 g/dL (6.3-8.2)
[2022-02-14 12:10] LABS: Hyaline Casts 0-2 /LPF (0-2); Mucus MODERATE /HPF (NEGATIVE); WBC 0-2 /HPF (0-5)
[2022-02-14 12:12] LABS: Appearance CLEAR (CLEAR); Bilirubin SMALL (NEGATIVE); Dipstick done @ ? MAIN LAB; Glucose NEGATIVE (NEGATIVE); Ketones NEGATIVE (NEGATIVE); Nitrite NEGATIVE (NEGATIVE); Ph 5.5 (5-6); Protein,Urine Dip NEGATIVE (Negative); RBC NEGATIVE Ery/ul (0-5); Specific Gravity >=1.030 (1.005-1.025); Urine Cultured Indicated? NO; Urobilinogen 0.2 mg/dL (0-1)
[2022-02-14 14:13] VITALS: BP 130/80; PULSE 87
--- NOTE | 2022-02-14 18:47 | XRAY ---
Indication: Abdomen pain, diarrhea, and vomiting. History pancreatitis. Multiple contiguous axial images obtained through the abdomen and pelvis without contrast. Comparison: October 12, 2021 Lung bases remain clear. Heart not enlarged. Noncontrasted stomach and bowel loops nonobstructed again with normal appendix. Head and uncinate process of pancreas again demonstrates edema with peripancreatic stranding similar to before again favoring pancreatitis. Increasing pancreatic head punctate calcifications suggest superimposed chronic pancreatitis. Pancreatic duct is slightly prominent up to 5 mm. No free fluid/air. Gallbladder contracted without gallstones. Stable 1.1 cm benign left mid renal exophytic mass. Remaining liver, spleen, adrenal glands, kidneys, ureters, bladder, and aorta appear unremarkable for noncontrast exam. Osseous structures intact. Impression: 1. Recurrent pancreatitis similar to the prior study. Again incidental chronic pancreatitis calcifications. Mild prominence pancreatic duct. 2. Stable benign left renal exophytic mass. Comment: Preliminary interpretation made by [facility]. No critical discrepancy.
== END 2022-02-14 14:13 | disposition home or self-care (01) ==
LOC: ED 11:24
DX: K86.1 Other chronic pancreatitis (principal); K86.89 Other specified diseases of pancreas; R10.12 Left upper quadrant pain; R11.2 Nausea with vomiting, unspecified; Z72.0 Tobacco use; Z28.310 Unvaccinated for COVID-19
CPT/HCPCS: 36000; 36415; 74176; 80053; 81015; 82150; 83605; 83690; 84484; 85025; 93005; 96374; 96375; 99284; J2270; J2405

== ENCOUNTER 2022-04-04 11:32 | Emergency (ER) | payer BC, OTHER ==
--- NOTE | 2022-04-04 11:48 | ERPHSYRPT ---
- History of Present Illness Time Seen by Provider: 04/04/22 11:48 Historian: patient, family Exam Limitations: no limitations Physician History: This is a 36-year-old white male patient who sees a GI specialist in [place] and has a history of gastroesophageal reflux disease and recurrent mild pancreatitis. Patient states that his abdominal pain is very similar to those episodes where he has had constipation or recurrent pancreatitis. Patient states his pain started 2 to 3 days ago and worsened today. He states he only had 2 drinks of alcohol yesterday. Patient has had CAT scans of the abdomen pelvis as recent as October 2021 in February 2022 each showing some mild inflammation of the head of the pancreas. Patient was seen by his primary care doctor and a HIDA scan was ordered which showed sludge in the gallbladder and he is supposed to see a general surgeon for evaluation for possible cholecystectomy by Dr. Lerma April 15. Patient is also seeing a Dr. Goldsmith in [place] for evaluation of his gastrointestinal issues. Patient was taking Linzess which helped him resolve his constipation. However, he was feeling well and stopped taking it until yesterday. He has not had a fever. He has no shortness of breath. He has no cough. He has no chest pain. Timing/Duration: day(s) (3) Activities at Onset: none Quality: aching Abdominal Pain Onset Location: generalized abdomen Pain Radiation: no radiation Severity of Pain-Max: moderate Severity of Pain-Current: moderate Modifying Factors: Improves With: nothing Associated Symptoms: nausea, neck pain Previous symptoms: same symptoms as today, no recent treatment Allergies/Adverse Reactions: No Known Drug Allergies Allergy (Verified 04/04/22 12:17) Home Medications: Omeprazole 40 mg PO DAILY 10/23/19 [History] Linaclotide [Linzess] 1 ea DAILY 04/04/22 [History] Hx Tetanus, Diphtheria Vaccination/Date Given: Yes (2018) Hx Influenza Vaccination/Date Given: No Hx Pneumococcal Vaccination/Date Given: No Travel Risk - International Travel Have you traveled outside of the country in past 3 weeks: No - Coronavirus Screening Are you exhibiting any of the following symptoms?: No Close contact with a COVID-19 positive Pt in past 14-21 Days: No - Vaccine Status Have you recieved a Covid-19 vaccination: No - Review of Systems Constitutional: No Symptoms Eyes: No Symptoms Ears, Nose, & Throat: No Symptoms Respiratory: No Symptoms Cardiac: No Symptoms Abdominal/Gastrointestinal: Abdominal Pain, Nausea, Vomiting, Constipation, No Diarrhea Genitourinary Symptoms: No Symptoms Musculoskeletal: No Symptoms Skin: No Symptoms Neurological: No Symptoms Psychological: No Symptoms Endocrine: No Symptoms Hematologic/Lymphatic: No Symptoms Immunological/Allergic: No Symptoms All Other Systems: Reviewed and Negative - Past Medical History Pertinent Past Medical History: Yes Neurological History: No Pertinent History ENT History: No Pertinent History Cardiac History: No Pertinent History Respiratory History: No Pertinent History Endocrine Medical History: No Pertinent History Musculoskeletal History: No Pertinent History GI Medical History: GERD, Pancreatitis, Other History: No Pertinent History Psycho-Social History: Anxiety, Depression Male Reproductive Disorders: No Pertinent History Other Medical History: Sutures placed in left outside (Middle) forearm. - Past Surgical History Past Surgical History: Yes Neuro Surgical History: No Pertinent History Cardiac: No Pertinent History Respiratory: No Pertinent History Gastrointestinal: No Pertinent History Genitourinary: No Pertinent History Musculoskeletal: No Pertinent History Male Surgical History: No Pertinent History Other Surgical History: 3 sets of tubes in bilateral ears - Social History Smoking Status: Current every day smoker How long have you smoked: 2 Exposure to second hand smoke: Yes Drug Use: none Patient Lives Alone: No - Nursing Vital Signs Nursing Vital Signs: Initial Vital Signs Temperature 97.7 F 04/04/22 12:11 Pulse Rate 74 04/04/22 12:11 Respiratory Rate 16 04/04/22 12:11 Blood Pressure 193/97 04/04/22 12:11 O2 Sat by Pulse Oximetry 97 04/04/22 12:11 Pain Scale Pain Intensity 4 - Physical Exam General Appearance: no apparent distress, alert, anxiety Eye Exam: PERRL/EOMI, eyes nml inspection Ears, Nose, Throat Exam: normal ENT inspection, moist mucous membranes Neck Exam: normal inspection, non-tender, supple, full range of motion Respiratory Exam: normal breath sounds, lungs clear, airway intact, No chest tenderness, No respiratory distress Cardiovascular Exam: regular rate/rhythm, normal heart sounds, normal peripheral pulses Gastrointestinal/Abdomen Exam: soft, normal bowel sounds, tenderness (Generalized), guarding (Generalized to palpation) Rectal Exam: not done Back Exam: normal inspection Extremity Exam: normal inspection, normal range of motion, pelvis stable Neurologic Exam: alert, oriented x 3, cooperative, x ray technologist II-XII nml as tested, normal mood/affect, nml cerebellar function, nml station & gait, sensation nml Skin Exam: normal color, warm, dry Lymphatic Exam: No adenopathy SpO2 Interpretation: normal O2 Delivery: Room Air - Course Nursing assessment & vital signs reviewed: Yes Ordered Tests: Active Orders 24 hr Category Date Time Status IV Insertion STAT Care 04/04/22 12:48 Active ABDOMEN AND PELVIS W/0 CONTRAS [CT] Stat Exams 04/04/22 13:28 Taken AMYLASE Stat Lab 04/04/22 13:07 Completed CBC W DIFF Stat Lab 04/04/22 13:07 Completed CMP Stat Lab 04/04/22 13:07 Completed ETHYL ALCOHOL Stat Lab 04/04/22 13:07 Completed LIPASE Stat Lab 04/04/22 13:07 Completed UA W/RFX CULTURE Stat Lab 04/04/22 13:24 Completed Medication Summary Generic Name Dose Route Start Last Admin Trade Name Freq PRN Reason Stop Dose Admin Sodium Chloride 1,000 mls @ 999 mls/hr 04/04/22 14:42 04/04/22 14:59 Sodium Chloride 0.9% 1000 Ml IV 04/04/22 15:42 999 mls/hr .Q1H1M STA Administration Discontinued Medications Generic Name Dose Route Start Last Admin Trade Name Freq PRN Reason Stop Dose Admin Hydromorphone HCl 1 mg 04/04/22 12:48 04/04/22 13:11 Hydromorphone 1 Mg/1ml Inj 1 Mg/Ml Syringe IV 04/04/22 12:49 1 mg STAT ONE Administration Hydromorphone HCl Confirm 04/04/22 13:08 Hydromorphone 1 Mg/1ml Inj 1 Mg/Ml Syringe Administered 04/04/22 13:09 Dose 1 mg .ROUTE .STK-MED ONE Sodium Chloride 1,000 mls @ 999 mls/hr 04/04/22 12:48 04/04/22 14:35 Sodium Chloride 0.9% 1000 Ml IV 04/04/22 13:48 Infused .Q1H1M STA Infusion Sodium Chloride Confirm 04/04/22 13:08 Sodium Chloride 0.9% 1000 Ml Administered 04/04/22 13:09 Dose 1,000 mls @ ud .ROUTE .STK-MED ONE Sodium Chloride Confirm 04/04/22 14:57 Sodium Chloride 0.9% 1000 Ml Administered 04/04/22 14:58 Dose 1,000 mls @ ud .ROUTE .STK-MED ONE Ondansetron HCl 4 mg 04/04/22 12:48 04/04/22 13:10 Ondansetron Hcl 4 Mg/2 Ml Vial IV 04/04/22 12:49 4 mg STAT ONE Administration Ondansetron HCl Confirm 04/04/22 13:08 Ondansetron Hcl 4 Mg/2 Ml Vial Administered 04/04/22 13:09 Dose 4 mg .ROUTE .STK-MED ONE Lab/Rad Data: Laboratory Result Diagrams 04/04/22 13:07 04/04/22 13:07 Laboratory Results 04/04/22 04/04/22 04/04/22 Range/Units 13:24 13:07 13:07 WBC (4.0-10.5) x10^3/uL RBC (4.1-5.6) x10^6/uL Hgb (12.5-18.0) g/dL Hct (42-50) % MCV (78-100) fL MCH (26-32) pg MCHC (32-36) g/dL RDW (11.5-14.0) % Plt Count (150-450) x10^3/uL MPV (7.5-11.0) fL Gran % (36.0-66.0) % Immature Gran % (Auto) (0.00-0.4) % Nucleat RBC Rel Count (0.00-0.1) % Eos # (Auto) (0-0.5) x10^3/uL Immature Gran # (Auto) (0.00-0.03) x10^3u/L Absolute Lymphs (auto) (1.0-4.6) x10^3/uL Absolute Monos (auto) (0.0-1.3) x10^3/uL Absolute Nucleated RBC (0.00-0.01) x10^3u/L Lymphocytes % (24.0-44.0) % Monocytes % (0.0-12.0) % Eosinophils % (0.00-5.0) % Basophils % (0.0-0.4) % Absolute Granulocytes (1.4-6.9) x10^3/uL Basophils # (0-0.4) x10^3/uL Sodium 137 (137-145) mmol/L Potassium 4.2 (3.5-5.1) mmol/L Chloride 104 (98-107) mmol/L Carbon Dioxide 26 (22-30) mmol/L Anion Gap 11.3 (5-15) MEQ/L BUN 8 L (9-20) mg/dL Creatinine 0.70 (0.66-1.25) mg/dL Estimated GFR > 60.0 ML/MIN Glucose 94 (74-106) mg/dL Calcium 9.6 (8.4-10.2) mg/dL Total Bilirubin 0.90 (0.2-1.3) mg/dL AST 25 (17-59) U/L ALT 30 (0-50) U/L Alkaline Phosphatase 63 (38-126) U/L Serum Total Protein 7.9 (6.3-8.2) g/dL Albumin 4.6 (3.5-5.0) g/dL Amylase 97 (30-110) U/L Lipase 396 H (23-300) U/L Urinalys Dipstick Clnc MAIN LAB Urine Color YELLOW (YELLOW) Urine Appearance CLEAR (CLEAR) Urine pH 6.0 (5-6) Ur Specific [place] 1.025 (1.005-1.025) POC Urine Protein Conf NEGATIVE (Negative) Urine Ketones MODERATE-40 A (NEGATIVE) Urine Nitrite NEGATIVE (NEGATIVE) Urine Bilirubin SMALL A (NEGATIVE) Urine Urobilinogen 1 A (0-1) mg/dL Urine Leukocytes NEGATIVE (NEGATIVE) Urine WBC (Auto) NONE (0-5) /HPF Urine RBC (Auto) NONE (0-2) /HPF U Epithel Cells (Auto) NONE (FEW) /HPF Urine Bacteria (Auto) RARE (NEGATIVE) /HPF Urine RBC NEGATIVE (0-5) Bill/ul Urine Mucus (Auto) SLIGHT A (NEGATIVE) /HPF Ur Culture Indicated? NO Urine Glucose NEGATIVE (NEGATIVE) mg/dL Ethyl Alcohol < 10 (0-10) mg/dL 04/04/22 Range/Units 13:07 WBC 7.4 (4.0-10.5) x10^3/uL RBC 5.00 (4.1-5.6) x10^6/uL Hgb 16.4 (12.5-18.0) g/dL Hct 47.7 (42-50) % MCV 95.4 (78-100) fL MCH 32.8 H (26-32) pg MCHC 34.4 (32-36) g/dL RDW 11.8 (11.5-14.0) % Plt Count 263 (150-450) x10^3/uL MPV 9.1 (7.5-11.0) fL Gran % 67.7 H (36.0-66.0) % Immature Gran % (Auto) 0.3 (0.00-0.4) % Nucleat RBC Rel Count 0.0 (0.00-0.1) % Eos # (Auto) 0.11 (0-0.5) x10^3/uL Immature Gran # (Auto) 0.02 (0.00-0.03) x10^3u/L Absolute Lymphs (auto) 1.55 (1.0-4.6) x10^3/uL Absolute Monos (auto) 0.68 (0.0-1.3) x10^3/uL Absolute Nucleated RBC 0.00 (0.00-0.01) x10^3u/L Lymphocytes % 20.9 L (24.0-44.0) % Monocytes % 9.2 (0.0-12.0) % Eosinophils % 1.5 (0.00-5.0) % Basophils % 0.4 (0.0-0.4) % Absolute Granulocytes 5.03 (1.4-6.9) x10^3/uL Basophils # 0.03 (0-0.4) x10^3/uL Sodium (137-145) mmol/L Potassium (3.5-5.1) mmol/L Chloride (98-107) mmol/L Carbon Dioxide (22-30) mmol/L Anion Gap (5-15) MEQ/L BUN (9-20) mg/dL Creatinine (0.66-1.25) mg/dL Estimated GFR ML/MIN Glucose (74-106) mg/dL Calcium (8.4-10.2) mg/dL Total Bilirubin (0.2-1.3) mg/dL AST (17-59) U/L ALT (0-50) U/L Alkaline Phosphatase (38-126) U/L Serum Total Protein (6.3-8.2) g/dL Albumin (3.5-5.0) g/dL Amylase (30-110) U/L Lipase (23-300) U/L Urinalys Dipstick Clnc Urine Color (YELLOW) Urine Appearance (CLEAR) Urine pH (5-6) Ur Specific [place] (1.005-1.025) POC Urine Protein Conf (Negative) Urine Ketones (NEGATIVE) Urine Nitrite (NEGATIVE) Urine Bilirubin (NEGATIVE) Urine Urobilinogen (0-1) mg/dL Urine Leukocytes (NEGATIVE) Urine WBC (Auto) (0-5) /HPF Urine RBC (Auto) (0-2) /HPF U Epithel Cells (Auto) (FEW) /HPF Urine Bacteria (Auto) (NEGATIVE) /HPF Urine RBC (0-5) Bill/ul Urine Mucus (Auto) (NEGATIVE) /HPF Ur Culture Indicated? Urine Glucose (NEGATIVE) mg/dL Ethyl Alcohol (0-10) mg/dL - Progress Progress: improved, pain not gone completely Progress Note: 04/04/22 15:29 CAT scan of the abdomen and pelvis without contrast shows minimal if any increased fat stranding around the pancreatic head to suggest pancreatitis. Counseled pt/family regarding: lab results, diagnosis, need for follow-up, rad results - Departure Departure Disposition: Home Clinical Impression: Pancreatitis Condition: Stable Critical Care Time: No Referrals: PATRICIA PALENCIA MD [Primary Care Provider] - Follow up/PCP as directed Additional Instructions: Drink plenty of clear liquid. Take your medication as prescribed. Follow-up with your prescribing physician as well as your GI specialist tomorrow by phone for further evaluation and management as well as pain control. Prescriptions: Ondansetron ODT 4 MG [Zofran Odt 4 mg] 4 mg PO Q6H PRN PRN #10 tablet PRN Reason: Vomiting
[2022-04-04] MEDS ORDERED: Sodium Chloride 0.9% 1000 ML 1,000 ML IV STA ×2 (12:48→14:42)
[2022-04-04] MEDS ORDERED: Hydromorphone 1 mg/ml Injection IV ONE ×2 (12:48→16:21)
[2022-04-04] MEDS ORDERED: Zofran 4 MG/2 ML VIAL IV ONE (12:48)
[2022-04-04] MEDS ORDERED: Hydromorphone 1 mg/ml Injection ONE ×2 (13:08→16:23)
[2022-04-04] MEDS ORDERED: Sodium Chloride 0.9% 1000 ML 1,000 ML ONE ×2 (13:08→14:57)
[2022-04-04] MEDS ORDERED: Zofran 4 MG/2 ML VIAL ONE (13:08)
[2022-04-04 13:09] LABS: Absolute Neutrophil Ct (ANC) 5.03 x10^3/uL (1.4-6.9); Basophil (Absolute #) 0.03 x10^3/uL (0-0.4); Eosinophil % 1.5 % (0.00-5.0); Eosinophil (Absolute #) 0.11 x10^3/uL (0-0.5); Hematocrit 47.7 % (42-50); Hemoglobin 16.4 g/dL (12.5-18.0); Lymphocyte (Absolute #) 1.55 x10^3/uL (1.0-4.6); Lymphocytes % 20.9 % (24.0-44.0); Mean Cell Volume 95.4 fL (78-100); Mean Corpuscular Hemoglobin 32.8 pg (26-32); Mean Corpuscular Hgb Concent. 34.4 g/dL (32-36); Mean Platelet Volume 9.1 fL (7.5-11.0); Monocyte (Absolute #) 0.68 x10^3/uL (0.0-1.3); Monocytes % 9.2 % (0.0-12.0); Neutrophil % 67.7 % (36.0-66.0); Platelet Count 263 x10^3/uL (150-450); Red Cell Distribution Width 11.8 % (11.5-14.0); White Blood Count 7.4 x10^3/uL (4.0-10.5)
[2022-04-04 13:28] LABS: ALBUMIN 4.6 g/dL (3.5-5.0); ALKALINE PHOSPHATASE 63 U/L (38-126); AMYLASE 97 U/L (30-110); ANION GAP 11.3 MEQ/L (5-15); BLOOD UREA NITROGEN 8 mg/dL (9-20); CHLORIDE 104 mmol/L (98-107); Calcium 9.6 mg/dL (8.4-10.2); Carbon Dioxide 26 mmol/L (22-30); EST GLOMERULAR FILTRATION RATE > 60.0 ML/MIN; Glucose 94 mg/dL (74-106); LIPASE 396 U/L (23-300); Potassium 4.2 mmol/L (3.5-5.1); SGOT/AST 25 U/L (17-59); SGPT/ALT 30 U/L (0-50); SODIUM 137 mmol/L (137-145); Total Protein 7.9 g/dL (6.3-8.2)
[2022-04-04 14:39] LABS: Bacteria RARE /HPF (NEGATIVE); Mucus SLIGHT /HPF (NEGATIVE)
[2022-04-04 14:40] LABS: Appearance CLEAR (CLEAR); Bilirubin SMALL (NEGATIVE); Glucose NEGATIVE (NEGATIVE); Ketones MODERATE-40 (NEGATIVE); Nitrite NEGATIVE (NEGATIVE); Protein,Urine Dip NEGATIVE (Negative); RBC NEGATIVE Ery/ul (0-5); Specific Gravity 1.025 (1.005-1.025); Urine Cultured Indicated? NO; Urobilinogen 1 mg/dL (0-1)
[2022-04-04 14:41] LABS: Dipstick done @ ? MAIN LAB
[2022-04-04 15:03] VITALS: BP 133/79; PULSE 74; O2SAT 94
--- NOTE | 2022-04-04 20:53 | XRAY ---
Indication: Vomiting and constipation. History of pancreatitis. Multiple contiguous axial images obtained through the abdomen and pelvis without contrast. Comparison: February 14, 2022 Lung bases remain clear. Heart not enlarged. Noncontrasted stomach and bowel loops remain nonobstructed with normal appendix. Mild fecal debris predominantly in the right hemicolon. Grossly stable pancreatic head and uncinate process edema again favoring mild pancreatitis. Pancreatic duct remains prominent optive 5 mm. Again pancreatic head punctate calcifications suggest superimposed chronic pancreatitis. No free fluid/air. Stable 1.1 cm benign left mid renal exophytic mass. Remaining liver, gallbladder, spleen, adrenal glands, kidneys, ureters, bladder, and aorta are unremarkable for noncontrast exam. Impression: 1. Again CT features for mild pancreatic head/uncinate pancreatitis with mild pancreatic duct prominence and superimposed chronic pancreatitis calcifications. 2. Stable benign left renal exophytic mass. Comment: Preliminary interpretation made by C. No critical discrepancy.
== END 2022-04-04 16:30 | disposition home or self-care (01) ==
LOC: ED 11:32
DX: K85.90 Acute pancreatitis without necrosis or infection, unspecified (principal); R10.84 Generalized abdominal pain; Z72.0 Tobacco use; Z79.899 Other long term (current) drug therapy; Z28.310 Unvaccinated for COVID-19
CPT/HCPCS: 36000; 36415; 74176; 80053; 80307; 81015; 82150; 83690; 85025; 96360; 96374; 96375; 96376; 99284; J1170; J2405; G0480

== ENCOUNTER 2022-11-20 11:55 | Emergency (ER) | payer BC, OTHER ==
--- NOTE | 2022-11-20 12:01 | ERPHSYRPT ---
- History of Present Illness Time Seen by Provider: 11/20/22 12:01 Source: patient Exam Limitations: no limitations Physician History: This is a 37-year-old white male patient of Dr. Palencia who has a history of gastroesophageal reflux disease and recurrent pancreatitis anxiety and depression and presents to the emergency department with generalized body aches for approximately 3 days. He states that he had a fever as high as 103 F. He presents to the emergency room today with somewhat vague, generalized complaints without fever. He is concerned about possibility of recurrent pancreatitis. He has right-sided abdominal pain rather than the left sided abdominal pain and he denies flank pain. He has a mild dry cough. He states that he just does not feel right. He denies chest pain. He denies shortness of breath. Cough Quality/Degree: mild, dry cough Possible Cause: occasional episodes Modifying Factors: Improves With: nothing Associated Symptoms: fever, cough (None now mild, weak, dry), muscle aches, No chest pain/soreness, No headache, No shortness of breath, No sore throat, No wheezing Allergies/Adverse Reactions: No Known Drug Allergies Allergy (Verified 11/20/22 12:08) Home Medications: Omeprazole 40 mg PO DAILY 10/23/19 [History] Cholecalciferol (Vitamin D3) [Vitamin D] 1 tab PO DAILY 11/20/22 [History] Hx Tetanus, Diphtheria Vaccination/Date Given: Yes (2018) Hx Influenza Vaccination/Date Given: No Hx Pneumococcal Vaccination/Date Given: No Travel Risk - International Travel Have you traveled outside of the country in past 3 weeks: No - Coronavirus Screening Are you exhibiting any of the following symptoms?: Yes Symptoms: Fever, Cough: New Onset, Headaches/Body Aches/Fatigue Close contact with a COVID-19 positive Pt in past 14-21 Days: No - Vaccine Status Have you recieved a Covid-19 vaccination: No - Review of Systems Constitutional: No Symptoms Eyes: No Symptoms Ears, Nose, & Throat: No Symptoms Respiratory: Cough Cardiac: No Symptoms Abdominal/Gastrointestinal: No Symptoms Genitourinary Symptoms: No Symptoms Musculoskeletal: Arthralgias, Myalgias Skin: No Symptoms Neurological: No Symptoms Psychological: No Symptoms Endocrine: No Symptoms Hematologic/Lymphatic: No Symptoms Immunological/Allergic: No Symptoms All Other Systems: Reviewed and Negative - Past Medical History Pertinent Past Medical History: Yes Neurological History: No Pertinent History ENT History: No Pertinent History Cardiac History: No Pertinent History Respiratory History: No Pertinent History Endocrine Medical History: No Pertinent History Musculoskeletal History: No Pertinent History GI Medical History: GERD, Pancreatitis, Other History: No Pertinent History Psycho-Social History: Anxiety, Depression Male Reproductive Disorders: No Pertinent History Other Medical History: Sutures placed in left outside (Middle) forearm. - Past Surgical History Past Surgical History: Yes Neuro Surgical History: No Pertinent History Cardiac: No Pertinent History Respiratory: No Pertinent History Gastrointestinal: No Pertinent History Genitourinary: No Pertinent History Musculoskeletal: No Pertinent History Male Surgical History: No Pertinent History Other Surgical History: 3 sets of tubes in bilateral ears - Social History Smoking Status: Current every day smoker How long have you smoked: 2 Exposure to second hand smoke: Yes Drug Use: none Patient Lives Alone: No - Nursing Vital Signs Nursing Vital Signs: Initial Vital Signs Blood Pressure 158/106 11/20/22 12:06 O2 Sat by Pulse Oximetry 95 11/20/22 12:06 Pain Scale Pain Intensity 0 - Physical Exam General Appearance: no apparent distress, alert, anxiety Eye Exam: PERRL/EOMI, eyes nml inspection Ears, Nose, Throat Exam: normal ENT inspection, moist mucous membranes Neck Exam: normal inspection, non-tender, supple, full range of motion Respiratory Exam: normal breath sounds, lungs clear, airway intact, No chest tenderness, No respiratory distress Cardiovascular Exam: regular rate/rhythm, normal heart sounds, normal peripheral pulses Gastrointestinal/Abdomen Exam: soft, normal bowel sounds, No tenderness, No guarding Rectal Exam: not done Back Exam: normal inspection, normal range of motion, No CVA tenderness, No vertebral tenderness Extremity Exam: normal inspection, normal range of motion, pelvis stable Neurologic Exam: alert, oriented x 3, cooperative, 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, normal mood/affect, nml cerebellar function, nml station & gait, sensation nml Skin Exam: normal color, warm, dry Lymphatic Exam: No adenopathy SpO2 Interpretation: normal O2 Delivery: Room Air - Course Nursing assessment & vital signs reviewed: Yes Ordered Tests: Active Orders 24 hr Category Date Time Status CHEST 1 VIEW (PORTABLE) Stat Exams 11/20/22 12:21 Taken AMYLASE Stat Lab 11/20/22 12:45 Completed CBC W DIFF Stat Lab 11/20/22 12:45 Completed CMP Stat Lab 11/20/22 12:45 Completed LIPASE Stat Lab 11/20/22 12:45 Completed MONO SCREEN Stat Lab 11/20/22 12:45 Completed UA W/RFX UR CULTURE Stat Lab 11/20/22 12:22 Completed Lab/Rad Data: Laboratory Result Diagrams 11/20/22 12:45 11/20/22 12:45 Laboratory Results 11/20/22 11/20/22 11/20/22 Range/Units 12:45 12:45 12:45 WBC (4.0-10.5) x10^3/uL RBC (4.1-5.6) x10^6/uL Hgb (12.5-18.0) g/dL Hct (42-50) % MCV (78-100) fL MCH (26-32) pg MCHC (32-36) g/dL RDW (11.5-14.0) % Plt Count (150-450) x10^3/uL MPV (7.5-11.0) fL Gran % (36.0-66.0) % Immature Gran % (Auto) (0.00-0.4) % Nucleat RBC Rel Count (0.00-0.1) % Eos # (Auto) (0-0.5) x10^3/uL Immature Gran # (Auto) (0.00-0.03) x10^3u/L Absolute Lymphs (auto) (1.0-4.6) x10^3/uL Absolute Monos (auto) (0.0-1.3) x10^3/uL Absolute Nucleated RBC (0.00-0.01) x10^3u/L Lymphocytes % (24.0-44.0) % Monocytes % (0.0-12.0) % Eosinophils % (0.00-5.0) % Basophils % (0.0-0.4) % Absolute Granulocytes (1.4-6.9) x10^3/uL Basophils # (0-0.4) x10^3/uL Sodium 139 (137-145) mmol/L Potassium 4.1 (3.5-5.1) mmol/L Chloride 102 (98-107) mmol/L Carbon Dioxide 31 H (22-30) mmol/L Anion Gap 10.0 (5-15) MEQ/L BUN 8 L (9-20) mg/dL Creatinine 0.72 (0.66-1.25) mg/dL Estimated GFR > 60.0 ML/MIN Glucose 108 H (74-106) mg/dL Calcium 8.6 (8.4-10.2) mg/dL Total Bilirubin 0.80 (0.2-1.3) mg/dL AST 33 (17-59) U/L ALT 49 (0-50) U/L Alkaline Phosphatase 77 (38-126) U/L Serum Total Protein 6.7 (6.3-8.2) g/dL Albumin 3.5 (3.5-5.0) g/dL Amylase 515 H (30-110) U/L Lipase 5844 H (23-300) U/L Urine Color (Yellow) Urine Appearance (Clear) Urine pH (4.6-8.0) Ur Specific [place] (1.005-1.030) Urine Protein (Negative) Urine Glucose (UA) (Negative) mg/dL Urine Ketones (Negative) Urine Blood (Negative) Urine Nitrite (Negative) Urine Bilirubin (Negative) Urine Urobilinogen (0.2) mg/dL Ur Leukocyte Esterase (Negative) U Hyaline Cast (Auto) (0-2) /LPF Urine Microscopic RBC (0-5) /HPF Urine Microscopic WBC (0-5) /HPF Ur Epithelial Cells (None Seen) /HPF Urine Bacteria (None Seen) /HPF Urine Culture Reflexed (NO) Monoscreen NEGATIVE (NEGATIVE) Influenza Type A Ag (NEGATIVE) Influenza Type B Ag (NEGATIVE) RSV (PCR) (NEGATIVE) SARS-CoV-2 (PCR) (NEGATIVE) Group A Strep Antibody (NEGATIVE) 11/20/22 11/20/22 11/20/22 Range/Units 12:45 12:45 12:45 WBC 6.6 (4.0-10.5) x10^3/uL RBC 4.03 L (4.1-5.6) x10^6/uL Hgb 13.5 (12.5-18.0) g/dL Hct 40.5 L (42-50) % MCV 100.5 H (78-100) fL MCH 33.5 H (26-32) pg MCHC 33.3 (32-36) g/dL RDW 11.1 L (11.5-14.0) % Plt Count 331 (150-450) x10^3/uL MPV 8.5 (7.5-11.0) fL Gran % 67.8 H (36.0-66.0) % Immature Gran % (Auto) 0.2 (0.00-0.4) % Nucleat RBC Rel Count 0.0 (0.00-0.1) % Eos # (Auto) 0.42 (0-0.5) x10^3/uL Immature Gran # (Auto) 0.01 (0.00-0.03) x10^3u/L Absolute Lymphs (auto) 0.87 L (1.0-4.6) x10^3/uL Absolute Monos (auto) 0.78 (0.0-1.3) x10^3/uL Absolute Nucleated RBC 0.00 (0.00-0.01) x10^3u/L Lymphocytes % 13.2 L (24.0-44.0) % Monocytes % 11.9 (0.0-12.0) % Eosinophils % 6.4 H (0.00-5.0) % Basophils % 0.5 (0.0-0.4) % Absolute Granulocytes 4.47 (1.4-6.9) x10^3/uL Basophils # 0.03 (0-0.4) x10^3/uL Sodium (137-145) mmol/L Potassium (3.5-5.1) mmol/L Chloride (98-107) mmol/L Carbon Dioxide (22-30) mmol/L Anion Gap (5-15) MEQ/L BUN (9-20) mg/dL Creatinine (0.66-1.25) mg/dL Estimated GFR ML/MIN Glucose (74-106) mg/dL Calcium (8.4-10.2) mg/dL Total Bilirubin (0.2-1.3) mg/dL AST (17-59) U/L ALT (0-50) U/L Alkaline Phosphatase (38-126) U/L Serum Total Protein (6.3-8.2) g/dL Albumin (3.5-5.0) g/dL Amylase (30-110) U/L Lipase (23-300) U/L Urine Color (Yellow) Urine Appearance (Clear) Urine pH (4.6-8.0) Ur Specific [place] (1.005-1.030) Urine Protein (Negative) Urine Glucose (UA) (Negative) mg/dL Urine Ketones (Negative) Urine Blood (Negative) Urine Nitrite (Negative) Urine Bilirubin (Negative) Urine Urobilinogen (0.2) mg/dL Ur Leukocyte Esterase (Negative) U Hyaline Cast (Auto) (0-2) /LPF Urine Microscopic RBC (0-5) /HPF Urine Microscopic WBC (0-5) /HPF Ur Epithelial Cells (None Seen) /HPF Urine Bacteria (None Seen) /HPF Urine Culture Reflexed (NO) Monoscreen (NEGATIVE) Influenza Type A Ag NEGATIVE (NEGATIVE) Influenza Type B Ag NEGATIVE (NEGATIVE) RSV (PCR) NEGATIVE (NEGATIVE) SARS-CoV-2 (PCR) NEGATIVE (NEGATIVE) Group A Strep Antibody NOT DETECTED (NEGATIVE) 11/20/22 Range/Units 12:22 WBC (4.0-10.5) x10^3/uL RBC (4.1-5.6) x10^6/uL Hgb (12.5-18.0) g/dL Hct (42-50) % MCV (78-100) fL MCH (26-32) pg MCHC (32-36) g/dL RDW (11.5-14.0) % Plt Count (150-450) x10^3/uL MPV (7.5-11.0) fL Gran % (36.0-66.0) % Immature Gran % (Auto) (0.00-0.4) % Nucleat RBC Rel Count (0.00-0.1) % Eos # (Auto) (0-0.5) x10^3/uL Immature Gran # (Auto) (0.00-0.03) x10^3u/L Absolute Lymphs (auto) (1.0-4.6) x10^3/uL Absolute Monos (auto) (0.0-1.3) x10^3/uL Absolute Nucleated RBC (0.00-0.01) x10^3u/L Lymphocytes % (24.0-44.0) % Monocytes % (0.0-12.0) % Eosinophils % (0.00-5.0) % Basophils % (0.0-0.4) % Absolute Granulocytes (1.4-6.9) x10^3/uL Basophils # (0-0.4) x10^3/uL Sodium (137-145) mmol/L Potassium (3.5-5.1) mmol/L Chloride (98-107) mmol/L Carbon Dioxide (22-30) mmol/L Anion Gap (5-15) MEQ/L BUN (9-20) mg/dL Creatinine (0.66-1.25) mg/dL Estimated GFR ML/MIN Glucose (74-106) mg/dL Calcium (8.4-10.2) mg/dL Total Bilirubin (0.2-1.3) mg/dL AST (17-59) U/L ALT (0-50) U/L Alkaline Phosphatase (38-126) U/L Serum Total Protein (6.3-8.2) g/dL Albumin (3.5-5.0) g/dL Amylase (30-110) U/L Lipase (23-300) U/L Urine Color Yellow (Yellow) Urine Appearance Clear (Clear) Urine pH 5.5 (4.6-8.0) Ur Specific [place] 1.015 (1.005-1.030) Urine Protein Trace A (Negative) Urine Glucose (UA) Negative (Negative) mg/dL Urine Ketones Trace A (Negative) Urine Blood Negative (Negative) Urine Nitrite Negative (Negative) Urine Bilirubin Negative (Negative) Urine Urobilinogen 1.0 A (0.2) mg/dL Ur Leukocyte Esterase Negative (Negative) U Hyaline Cast (Auto) NONE SEEN (0-2) /LPF Urine Microscopic RBC 0-2 (0-5) /HPF Urine Microscopic WBC 0-2 (0-5) /HPF Ur Epithelial Cells None Seen (None Seen) /HPF Urine Bacteria None Seen (None Seen) /HPF Urine Culture Reflexed NO (NO) Monoscreen (NEGATIVE) Influenza Type A Ag (NEGATIVE) Influenza Type B Ag (NEGATIVE) RSV (PCR) (NEGATIVE) SARS-CoV-2 (PCR) (NEGATIVE) Group A Strep Antibody (NEGATIVE) - Progress Progress: improved, re-examined Air Movement: good Progress Note: 11/20/22 13:47 The chest x-ray was interpreted by me. This patient does not have acute cardiopulmonary process. This patient's medical issue is 1 of moderate complexity. The level of complexity and the work-up performed is based on review of the patient's past medical history, review of the patient's medication list, review the patient's drug allergy list, history present illness and physical findings on examination. Patient states from the out right that what ever is done he does not want to be transferred to another facility or admitted into the hospital. Patient states his symptoms are not typical for his pancreatitis flareups. However, he is having some abdominal pain and generalized body aches. We ordered viral swabs, urinalysis, group A strep test, chest x-ray CBC, CMP, amylase and lipase levels. I reviewed the above work-up results. Patient does have evidence of pancreatitis flareup. Patient does not want admission to the hospital or transfer to another facility. He does not want a CAT scan of the abdomen pelvis . He will except placement of an intravenous line, infusion of 1 L normal saline solution, infusion of Zofran 4 mg intravenously and infusion of Dilaudid 1 mg intravenously which she has had in the past and helped his symptoms. Patient wants to first attempt outpatient treatment with clear liquid diet and avoidance of fatty greasy spicy foods. Patient's vital signs are stable and he does not appear to be in any distress. I do not think this is an unreasonable request. He is aware, that his symptoms could acutely worsen and he would have to return to the emergency department if this occurs for reevaluation and possible admission to the hospital and/or transferred to another facility. Blood Culture(s) Obtained: No Antibiotics given: No Counseled pt/family regarding: lab results, diagnosis, need for follow-up Medical Desision Making - Independent Historian Additional History obtained from: Spouse - Diagnostic Testing Diagnostic test were ordered, analyzed, and reviewed by me: Yes Radiological Interpretation: Interpreted by me - Risk of complications Low Risk: Low risk of morbidity from additional dx testing or treatment - Departure Departure Disposition: Home Clinical Impression: Pancreatitis, recurrent Condition: Stable Critical Care Time: No Referrals: PATRICIA PALENCIA MD [Primary Care Provider] - Follow up/PCP as directed Instructions: Pancreatitis (DC) Additional Instructions: Clear liquid diet for the next 24 hours then slowly advance your diet. Make sure you do not consume fatty greasy spicy foods. Return to the emergency department if symptoms worsen. Take your other medication as prescribed.
[2022-11-20 12:35] LABS: Appearance Clear (Clear); Bacteria None Seen /HPF (None Seen); Bilirubin Negative (Negative); Blood Negative (Negative); Epithelial Cells None Seen /HPF (None Seen); Glucose, Urine Negative (Negative); Hyaline Casts NONE SEEN /LPF (0-2); Ketones Trace (Negative); Leukocyte Esterase Negative (Negative); Nitrite Negative (Negative); Ph 5.5 (4.6-8.0); Protein,Urine Dip Trace (Negative); RBC 0-2 /HPF (0-5); Specific Gravity 1.015 (1.005-1.030); WBC 0-2 /HPF (0-5)
[2022-11-20 12:38] LABS: ADD URINE CULTURE? NO (NO)
[2022-11-20 12:55] LABS: Absolute Neutrophil Ct (ANC) 4.47 x10^3/uL (1.4-6.9); BASOPHIL % 0.5 % (0.0-0.4); Basophil (Absolute #) 0.03 x10^3/uL (0-0.4); Eosinophil % 6.4 % (0.00-5.0); Eosinophil (Absolute #) 0.42 x10^3/uL (0-0.5); Hematocrit 40.5 % (42-50); Hemoglobin 13.5 g/dL (12.5-18.0); IMMATURE GRAN # 0.01 x10^3u/L (0.00-0.03); IMMATURE GRAN % 0.2 % (0.00-0.4); Lymphocyte (Absolute #) 0.87 x10^3/uL (1.0-4.6); Lymphocytes % 13.2 % (24.0-44.0); Mean Cell Volume 100.5 fL (78-100); Mean Corpuscular Hemoglobin 33.5 pg (26-32); Mean Corpuscular Hgb Concent. 33.3 g/dL (32-36); Mean Platelet Volume 8.5 fL (7.5-11.0); Monocyte (Absolute #) 0.78 x10^3/uL (0.0-1.3); Monocytes % 11.9 % (0.0-12.0); Neutrophil % 67.8 % (36.0-66.0); Platelet Count 331 x10^3/uL (150-450); Red Blood Count 4.03 x10^6/uL (4.1-5.6); Red Cell Distribution Width 11.1 % (11.5-14.0); White Blood Count 6.6 x10^3/uL (4.0-10.5)
[2022-11-20 13:04] LABS: AMYLASE 515 U/L (30-110)
[2022-11-20 13:14] LABS: ALBUMIN 3.5 g/dL (3.5-5.0); ALKALINE PHOSPHATASE 77 U/L (38-126); BLOOD UREA NITROGEN 8 mg/dL (9-20); CHLORIDE 102 mmol/L (98-107); Calcium 8.6 mg/dL (8.4-10.2); Carbon Dioxide 31 mmol/L (22-30); Creatinine 1 0.72 mg/dL (0.66-1.25); EST GLOMERULAR FILTRATION RATE > 60.0 ML/MIN; Glucose 108 mg/dL (74-106); Potassium 4.1 mmol/L (3.5-5.1); SGOT/AST 33 U/L (17-59); SGPT/ALT 49 U/L (0-50); SODIUM 139 mmol/L (137-145); Total Protein 6.7 g/dL (6.3-8.2)
[2022-11-20 13:27] LABS: INFLUENZA A NEGATIVE (NEGATIVE); INFLUENZA B NEGATIVE (NEGATIVE); RESPIRATORY SYNCTIAL VIRUS NEGATIVE (NEGATIVE); SARS-CoV-2 Xpert Express NEGATIVE (NEGATIVE)
[2022-11-20 13:28] LABS: LIPASE 5844 U/L (23-300)
[2022-11-20] MEDS ORDERED: Sodium Chloride 0.9% 1000 ML 1,000 ML ONE (13:49)
[2022-11-20] MEDS ORDERED: Sodium Chloride 0.9% 1000 ML 1,000 ML IV STA (13:50)
[2022-11-20] MEDS ORDERED: Zofran 4 MG/2 ML VIAL IV ONE (13:52)
[2022-11-20] MEDS ORDERED: Hydromorphone 1 mg/ml Injection IV ONE (13:52)
[2022-11-20] MEDS ORDERED: Hydromorphone 1 mg/ml Injection ONE (13:53)
[2022-11-20] MEDS ORDERED: Zofran 4 MG/2 ML VIAL ONE (13:53)
[2022-11-20 14:34] VITALS: BP 124/89; PULSE 82; O2SAT 98
--- NOTE | 2022-11-20 21:05 | XRAY ---
Indication: Fever and cough. Comparison: August 24, 2019 Portable chest again demonstrates normal heart, lungs, and bony thorax.
== END 2022-11-20 15:01 | disposition home or self-care (01) ==
LOC: ED 11:55
DX: K85.90 Acute pancreatitis without necrosis or infection, unspecified (principal); R10.11 Right upper quadrant pain; R10.31 Right lower quadrant pain; Z79.899 Other long term (current) drug therapy; Z28.310 Unvaccinated for COVID-19; Z72.0 Tobacco use
CPT/HCPCS: 0241U; 36000; 36415; 71045; 80053; 81001; 82150; 83690; 85025; 86308; 87651; 96360; 96374; 96375; 99284; J1170; J2405

== ENCOUNTER 2022-12-03 16:45 | Observation (INO) | payer BC, OTHER ==
[2022-12-03] MEDS ORDERED: Hydromorphone 1 mg/ml Injection IV ONE (17:27)
[2022-12-03] MEDS ORDERED: Sodium Chloride 0.9% 1000 ML 1,000 ML IV STA (17:27)
[2022-12-03 17:39] LABS: Absolute Neutrophil Ct (ANC) 4.46 x10^3/uL (1.4-6.9); BASOPHIL % 0.6 % (0.0-0.4); Basophil (Absolute #) 0.04 x10^3/uL (0-0.4); Eosinophil % 7.3 % (0.00-5.0); Eosinophil (Absolute #) 0.47 x10^3/uL (0-0.5); Hematocrit 41.5 % (42-50); Hemoglobin 13.4 g/dL (12.5-18.0); IMMATURE GRAN # 0.03 x10^3u/L (0.00-0.03); IMMATURE GRAN % 0.5 % (0.00-0.4); Lymphocyte (Absolute #) 0.96 x10^3/uL (1.0-4.6); Lymphocytes % 14.8 % (24.0-44.0); Mean Corpuscular Hemoglobin 32.3 pg (26-32); Mean Corpuscular Hgb Concent. 32.3 g/dL (32-36); Mean Platelet Volume 9.1 fL (7.5-11.0); Monocyte (Absolute #) 0.52 x10^3/uL (0.0-1.3); Neutrophil % 68.8 % (36.0-66.0); Platelet Count 358 x10^3/uL (150-450); Red Blood Count 4.15 x10^6/uL (4.1-5.6); Red Cell Distribution Width 11.4 % (11.5-14.0); White Blood Count 6.5 x10^3/uL (4.0-10.5)
[2022-12-03] MEDS ORDERED: Hydromorphone 1 mg/ml Injection ONE (17:41)
[2022-12-03] MEDS ORDERED: Sodium Chloride 0.9% 1000 ML 1,000 ML ONE (17:41)
[2022-12-03 17:45] LABS: CK-Creatinine Phosphokinase 114 U/L (55-170); ETHYL ALCOHOL < 10 mg/dL (0-10)
[2022-12-03 17:47] LABS: ALBUMIN 3.8 g/dL (3.5-5.0); ALKALINE PHOSPHATASE 76 U/L (38-126); ANION GAP 13.6 MEQ/L (5-15); BLOOD UREA NITROGEN 8 mg/dL (9-20); CHLORIDE 102 mmol/L (98-107); Calcium 8.7 mg/dL (8.4-10.2); Carbon Dioxide 30 mmol/L (22-30); Creatinine 1 0.87 mg/dL (0.66-1.25); EST GLOMERULAR FILTRATION RATE > 60.0 ML/MIN; Glucose 128 mg/dL (74-106); Potassium 4.1 mmol/L (3.5-5.1); SGOT/AST 34 U/L (17-59); SGPT/ALT 34 U/L (0-50); SODIUM 141 mmol/L (137-145); Total Protein 7.3 g/dL (6.3-8.2)
[2022-12-03 17:52] LABS: AMYLASE 1654 U/L (30-110)
[2022-12-03] MEDS ORDERED: Zofran 4 MG/2 ML VIAL ONE (18:04)
[2022-12-03] MEDS ORDERED: Zofran 4 MG/2 ML VIAL IV ONE (18:04)
--- NOTE | 2022-12-03 18:40 | ERPHSYRPT ---
- History of Present Illness Historian: patient, family Exam Limitations: no limitations Patient Subjective Stated Complaint: PT states "I have this horrible pain in my right shoulder. It also hurts a little to breath on the right side." Triage Nursing Assessment: Pt presented alert and oriented X 3, skin pwd.PT amublates with and upright steady gait, able to speak in clear full sentences. PT in no apparent respiratory distress. Pt restning comfortably on the bed. Timing/Duration: week(s) (2) Activities at Onset: none Quality: cramping, stabbing Pain Radiation: RUQ, shoulder, chest Severity of Pain-Max: moderate Severity of Pain-Current: moderate Modifying Factors: Improves With: breathing, coughing Associated Symptoms: chest pain, fever/chills Previous symptoms: same symptoms as today Hx Tetanus, Diphtheria Vaccination/Date Given: Yes (2018) Hx Influenza Vaccination/Date Given: No Hx Pneumococcal Vaccination/Date Given: No Immunizations Up to Date: Yes <JIMENA LAND - Last Filed: 12/03/22 18:54> <ALIREZA AMOR - Last Filed: 12/03/22 20:52> - History of Present Illness Time Seen by Provider: 12/03/22 16:55 Physician History: Patient is a 37-year-old white male with a known history of chronic pancreatitis which has had 2 recent visits in the last 2 weeks for abdominal pain and right- sided chest pain which was believed to be due to pancreatitis acute on chronic. This has persisted he refused admission on 2 occasion. He complains primarily of pain in the right side of the chest on the right shoulder he denies any nausea or vomiting and says this is different than his normal attacks of pancreatitis.He has had a extensive work-up for biliary disease which has been negative but he says his family history is particularly strong. (JIMENA LAND) Allergies/Adverse Reactions: No Known Drug Allergies Allergy (Verified 11/25/22 16:02) Home Medications: Omeprazole 40 mg PO DAILY 10/23/19 [History] Cholecalciferol (Vitamin D3) [Vitamin D] 1 tab PO DAILY 11/20/22 [History] Travel Risk - International Travel Have you traveled outside of the country in past 3 weeks: No - Coronavirus Screening Are you exhibiting any of the following symptoms?: No Close contact with a COVID-19 positive Pt in past 14-21 Days: No - Vaccine Status Have you recieved a Covid-19 vaccination: No <NISSAKEITHJIMENA Beard Last Filed: 12/03/22 18:54> - Review of Systems Constitutional: Fever, No Chills Eyes: No Symptoms Ears, Nose, & Throat: No Symptoms Respiratory: Dyspnea, Other, No Cough Cardiac: Chest Pain (Pleuritic chest pain), No Edema, No Syncope Abdominal/Gastrointestinal: No Abdominal Pain, No Nausea, No Vomiting, No Diarrhea Genitourinary Symptoms: No Dysuria Musculoskeletal: No Back Pain, No Neck Pain Skin: No Rash Neurological: No Dizziness, No Focal Weakness, No Sensory Changes Psychological: No Symptoms Endocrine: No Symptoms All Other Systems: Reviewed and Negative <EMERYJIMENA Beard Last Filed: 12/03/22 18:54> - Past Medical History Pertinent Past Medical History: Yes Neurological History: No Pertinent History ENT History: No Pertinent History Cardiac History: No Pertinent History Respiratory History: No Pertinent History Endocrine Medical History: No Pertinent History Musculoskeletal History: No Pertinent History GI Medical History: GERD, Pancreatitis, Other History: No Pertinent History Psycho-Social History: Anxiety, Depression Male Reproductive Disorders: No Pertinent History Other Medical History: Sutures placed in left outside (Middle) forearm. - Past Surgical History Past Surgical History: Yes Neuro Surgical History: No Pertinent History Cardiac: No Pertinent History Respiratory: No Pertinent History Gastrointestinal: No Pertinent History Genitourinary: No Pertinent History Musculoskeletal: No Pertinent History Male Surgical History: No Pertinent History Other Surgical History: 3 sets of tubes in bilateral ears - Social History Smoking Status: Current every day smoker How long have you smoked: 2 Exposure to second hand smoke: Yes Drug Use: none Patient Lives Alone: No <JIMENA LAND Last Filed: 12/03/22 18:54> - Physical Exam General Appearance: no apparent distress, alert Eye Exam: PERRL/EOMI, eyes nml inspection Ears, Nose, Throat Exam: normal ENT inspection, pharynx normal, moist mucous membranes Neck Exam: normal inspection, non-tender, supple, full range of motion Respiratory Exam: normal breath sounds, lungs clear, No respiratory distress Cardiovascular Exam: regular rate/rhythm, normal heart sounds Gastrointestinal/Abdomen Exam: soft, No tenderness, No mass Back Exam: normal inspection, normal range of motion, No CVA tenderness, No vertebral tenderness Extremity Exam: normal inspection, normal range of motion, pelvis stable Neurologic Exam: alert, oriented x 3, cooperative, normal mood/affect, nml cerebellar function, sensation nml, No motor deficits Skin Exam: normal color, warm, dry SpO2 Interpretation: normal SpO2: 98 O2 Delivery: Room Air <JIMENA LAND - Last Filed: 12/03/22 18:54> - Nursing Vital Signs Nursing Vital Signs: Initial Vital Signs Temperature 98.2 F 12/03/22 16:49 Pulse Rate 81 12/03/22 16:49 Respiratory Rate 20 12/03/22 16:49 Blood Pressure 136/82 12/03/22 16:49 O2 Sat by Pulse Oximetry 100 12/03/22 16:49 Pain Scale Pain Intensity 5 - Course Nursing assessment & vital signs reviewed: Yes <JIMENA LAND - Last Filed: 12/03/22 18:54> <ALIREZA AMOR - Last Filed: 12/03/22 20:52> Ordered Tests: Active Orders 24 hr Category Date Time Status IV Insertion STAT Care 12/03/22 17:27 Active ABDOMEN AND PELVIS W CONTRAST [CT] Stat Exams 12/03/22 17:28 Completed CHEST WITH CONTRAST [CT] Stat Exams 12/03/22 17:32 Completed AMYLASE Stat Lab 12/03/22 Completed CBC W DIFF Stat Lab 12/03/22 Completed CK-Creatinine Phosphokinase Stat Lab 12/03/22 Completed CMP Stat Lab 12/03/22 Completed D-DIMER QUANTITATIVE Stat Lab 12/03/22 Received ETHYL ALCOHOL Stat Lab 12/03/22 Completed LIPASE Stat Lab 12/03/22 Completed Lactic Acid Stat Lab 12/03/22 17:30 Ordered Lactic Acid Stat Lab 12/03/22 17:50 Completed PROTIME WITH INR Stat Lab 12/03/22 Received UA W/RFX UR CULTURE Stat Lab 12/03/22 19:36 Received Urine Triage Profile Stat Lab 12/03/22 19:36 Completed Medication Summary Discontinued Medications Generic Name Dose Route Start Last Admin Trade Name Freq PRN Reason Stop Dose Admin Fentanyl Citrate 100 mcg 12/03/22 20:07 12/03/22 20:16 Fentanyl Citrate 100 Mcg/2 Ml* Vial IV 12/03/22 20:08 100 mcg STAT ONE Administration Fentanyl Citrate Confirm 12/03/22 20:14 Fentanyl Citrate 100 Mcg/2 Ml* Vial Administered 12/03/22 20:15 Dose 100 mcg .ROUTE .STK-MED ONE Hydromorphone HCl 1 mg 12/03/22 17:27 12/03/22 17:42 Hydromorphone 1 Mg/1ml Inj IV 12/03/22 17:28 1 mg STAT ONE Administration Hydromorphone HCl Confirm 12/03/22 17:41 Hydromorphone 1 Mg/1ml Inj Administered 12/03/22 17:42 Dose 1 mg .ROUTE .STK-MED ONE Sodium Chloride 1,000 mls @ 999 mls/hr 12/03/22 17:27 12/03/22 18:49 Sodium Chloride 0.9% 1000 Ml IV 12/03/22 18:27 Infused .Q1H1M STA Infusion Sodium Chloride Confirm 12/03/22 17:41 Sodium Chloride 0.9% 1000 Ml Administered 12/03/22 17:42 Dose 1,000 mls @ ud .ROUTE .STK-MED ONE Ondansetron HCl 4 mg 12/03/22 18:04 12/03/22 18:11 Ondansetron Hcl 4 Mg/2 Ml Vial IV 12/03/22 18:05 Not Given STAT ONE Ondansetron HCl Confirm 12/03/22 18:04 Ondansetron Hcl 4 Mg/2 Ml Vial Administered 12/03/22 18:05 Dose 4 mg .ROUTE .STK-MED ONE Lab/Rad Data: Laboratory Result Diagrams 12/03/22 Unknown 12/03/22 Unknown Laboratory Results 12/03/22 12/03/22 12/03/22 Range/Units Unknown Unknown Unknown WBC 6.5 (4.0-10.5) x10^3/uL RBC 4.15 (4.1-5.6) x10^6/uL Hgb 13.4 (12.5-18.0) g/dL Hct 41.5 L (42-50) % MCV 100.0 (78-100) fL MCH 32.3 H (26-32) pg MCHC 32.3 (32-36) g/dL RDW 11.4 L (11.5-14.0) % Plt Count 358 (150-450) x10^3/uL MPV 9.1 (7.5-11.0) fL Gran % 68.8 H (36.0-66.0) % Immature Gran % (Auto) 0.5 H (0.00-0.4) % Nucleat RBC Rel Count 0.0 (0.00-0.1) % Eos # (Auto) 0.47 (0-0.5) x10^3/uL Immature Gran # (Auto) 0.03 (0.00-0.03) x10^3u/L Absolute Lymphs (auto) 0.96 L (1.0-4.6) x10^3/uL Absolute Monos (auto) 0.52 (0.0-1.3) x10^3/uL Absolute Nucleated RBC 0.00 (0.00-0.01) x10^3u/L Lymphocytes % 14.8 L (24.0-44.0) % Monocytes % 8.0 (0.0-12.0) % Eosinophils % 7.3 H (0.00-5.0) % Basophils % 0.6 (0.0-0.4) % Absolute Granulocytes 4.46 (1.4-6.9) x10^3/uL Basophils # 0.04 (0-0.4) x10^3/uL Sodium 141 (137-145) mmol/L Potassium 4.1 (3.5-5.1) mmol/L Chloride 102 (98-107) mmol/L Carbon Dioxide 30 (22-30) mmol/L Anion Gap 13.6 (5-15) MEQ/L BUN 8 L (9-20) mg/dL Creatinine 0.87 (0.66-1.25) mg/dL Estimated GFR > 60.0 ML/MIN Glucose 128 H (74-106) mg/dL Lactic Acid (0.4-2.0) Calcium 8.7 (8.4-10.2) mg/dL Total Bilirubin 0.30 (0.2-1.3) mg/dL AST 34 (17-59) U/L ALT 34 (0-50) U/L Alkaline Phosphatase 76 (38-126) U/L Creatine Kinase 114 (55-170) U/L Serum Total Protein 7.3 (6.3-8.2) g/dL Albumin 3.8 (3.5-5.0) g/dL Amylase 1654 H (30-110) U/L Lipase 34523 H (23-300) U/L Urine Opiates Level (NEGATIVE) Ur Methadone (NEGATIVE) Urine Barbiturates (NEGATIVE) Ur Phencyclidine (PCP) (NEGATIVE) Urine Amphetamine (NEGATIVE) U Benzodiazepine Level (NEGATIVE) Urine Cocaine (NEGATIVE) Urine Marijuana (THC) (NEGATIVE) Ethyl Alcohol < 10 (0-10) mg/dL 12/03/22 12/03/22 Range/Units 19:36 17:50 WBC (4.0-10.5) x10^3/uL RBC (4.1-5.6) x10^6/uL Hgb (12.5-18.0) g/dL Hct (42-50) % MCV (78-100) fL MCH (26-32) pg MCHC (32-36) g/dL RDW (11.5-14.0) % Plt Count (150-450) x10^3/uL MPV (7.5-11.0) fL Gran % (36.0-66.0) % Immature Gran % (Auto) (0.00-0.4) % Nucleat RBC Rel Count (0.00-0.1) % Eos # (Auto) (0-0.5) x10^3/uL Immature Gran # (Auto) (0.00-0.03) x10^3u/L Absolute Lymphs (auto) (1.0-4.6) x10^3/uL Absolute Monos (auto) (0.0-1.3) x10^3/uL Absolute Nucleated RBC (0.00-0.01) x10^3u/L Lymphocytes % (24.0-44.0) % Monocytes % (0.0-12.0) % Eosinophils % (0.00-5.0) % Basophils % (0.0-0.4) % Absolute Granulocytes (1.4-6.9) x10^3/uL Basophils # (0-0.4) x10^3/uL Sodium (137-145) mmol/L Potassium (3.5-5.1) mmol/L Chloride (98-107) mmol/L Carbon Dioxide (22-30) mmol/L Anion Gap (5-15) MEQ/L BUN (9-20) mg/dL Creatinine (0.66-1.25) mg/dL Estimated GFR ML/MIN Glucose (74-106) mg/dL Lactic Acid 1.5 (0.4-2.0) Calcium (8.4-10.2) mg/dL Total Bilirubin (0.2-1.3) mg/dL AST (17-59) U/L ALT (0-50) U/L Alkaline Phosphatase (38-126) U/L Creatine Kinase (55-170) U/L Serum Total Protein (6.3-8.2) g/dL Albumin (3.5-5.0) g/dL Amylase (30-110) U/L Lipase (23-300) U/L Urine Opiates Level POSITIVE (NEGATIVE) Ur Methadone NEGATIVE (NEGATIVE) Urine Barbiturates NEGATIVE (NEGATIVE) Ur Phencyclidine (PCP) NEGATIVE (NEGATIVE) Urine Amphetamine NEGATIVE (NEGATIVE) U Benzodiazepine Level NEGATIVE (NEGATIVE) Urine Cocaine NEGATIVE (NEGATIVE) Urine Marijuana (THC) NEGATIVE (NEGATIVE) Ethyl Alcohol (0-10) mg/dL CT/ABDOMEN AND PELVIS W CONTRAST CLINICAL HISTORY:chronic pancreatitis COMPARISON:None. TECHNIQUE:Contiguous, multislice, post intravenous contrast [80 cc of Isovue-370] CT scan of the abdomen and pelvis was performed in the axial plane with multiplanar reconstructions. FINDINGS: Coarse pancreatic calcifications at the pancreatic head accompanied by duct dilatation and decreased attenuation of the pancreatic head and mild peripancreatic fat stranding. Tiny calcific foci also noted in distal body of pancreas. Thickening of bilateral renal fascia noted. Liver is enlarged in size, measures about 19 cm in craniocaudal axis showing homogeneous attenuation. No focal mass lesion seen in liver. There is mild dilatation of central intrahepatic biliary radicals. This could be due to inflammatory stricture of distal CBD. Gallbladder shows no definite calculi inside. Spleen appear normal in size, shows normal contour and attenuation. Splenule noted measuring about 11 mm. No adrenal mass. Both kidneys appear normal in size, shows normal postcontrast enhancement and excretion. Hypodense lesion seen at the midpole cortex of left kidney measuring about 10 X 14 mm representing renal cyst. No calculus or hydronephrosis in either kidney. No ascites. Few subcentimeter para-aortic lymph nodes seen. Imaged bowel structures appear unremarkable. No bowel dilatation. Adequately filled urinary bladder, appear free from intraluminal stones, mass or diverticular outpouching. Normal-sized prostate. No acute osseous abnormality or suspicious bony lesions. Visualized sections of lower chest shows no focal mass or consolidation. IMPRESSION: 1. CT appearances showing coarse calcifications mainly at the pancreatic head showing decreased attenuation accompanied by duct dilatation and mild peripancreatic fat stranding representing chronic pancreatitis with acute exacerbation. Clinical correlation is suggested. 2. Mild dilatation of intrahepatic biliary radicles, could be due to inflammatory stricture of the distal CBDLeft renal cortical cyst. 3. Rest of the findings as detailed above. (ZULEYMA,ALIREZA) - Progress Progress: unchanged, pain not gone completely Counseled pt/family regarding: lab results, diagnosis, need for follow-up, rad results <ELIA AMORYESH - Last Filed: 12/03/22 20:52> Medical Desision Making - Risk of complications The pt has a high risk of morbidity or mortality based on: Drug therapy requirin g intensive monitoring for toxicity <ELIA AMORYESH - Last Filed: 12/03/22 20:52> - Departure Departure Disposition: Observation Critical Care Time: No <JIMENA LAND - Last Filed: 12/03/22 18:54> - Departure Departure Disposition: Observation Critical Care Time: Yes Critical Care Time(excluding separately billable procedures): Critical 30-74 mins <ELIA AMORYESH - Last Filed: 12/03/22 20:52> - Departure Clinical Impression: Pancreatitis Qualifiers: Chronicity: acute Pancreatitis type: idiopathic Acute pancreatitis complication: no infection or necrosis Qualified Code(s): K85.00 - Idiopathic acute pancreatitis without necrosis or infection Condition: Fair Referrals: PATRICIA PALENCIA MD [Primary Care Provider] - Follow up/PCP as directed
[2022-12-03 19:00] LABS: LIPASE 18614 U/L (23-300)
--- NOTE | 2022-12-03 19:23 | XRAY ---
CLINICAL HISTORY:pleuritic chest pain COMPARISON:None. TECHNIQUE:Axial CTA images of the chest with intravenous contrast using a pulmonary embolism protocol as per angiographic protocol. Injection Omnipaque (350 mg/100 ml) was administered as an intravenous contrast agent. Three-dimensional MIP-rendered reformations in Coronal and Sagittal planes were performed, reconstructed, and reviewed. CTDI 51.59 mGy, DLP 1227.62 mGycm FINDINGS: The main pulmonary segment, right and left main branches show normal diameter and homogeneous contrast enhancement with no evidence of pulmonary embolism or thrombosis. Normal contrast opacification of proximal and visualized distal branches of lobar pulmonary arteries. No pulmonary infarcts or pleural collection. There is no evidence of an aneurysm or dissection of the thoracic aorta. No consolidation was observed. Mild posterior pleural thickening in the lung bases. No pericardial effusion. IMPRESSION: Negative study for pulmonary embolism. Electronically Signed by: Selene Mcdaniels MD. (12/03/2022 18:22:59 [facility])
[2022-12-03] MEDS ORDERED: SUBLIMAZE 100 MCG/2 ML IV ONE (20:07)
[2022-12-03] MEDS ORDERED: SUBLIMAZE 100 MCG/2 ML ONE (20:14)
[2022-12-03 20:31] LABS: Amphetamine,Urine NEGATIVE (NEGATIVE); Barbiturate,Urine NEGATIVE (NEGATIVE); Benzodiazepine,Urine NEGATIVE (NEGATIVE); Cocaine,Urine NEGATIVE (NEGATIVE); Methadone,Urine NEGATIVE (NEGATIVE); Opiate,Urine POSITIVE (NEGATIVE); PCP,Urine NEGATIVE (NEGATIVE); THC,Urine NEGATIVE (NEGATIVE)
--- NOTE | 2022-12-03 20:47 | XRAY ---
CLINICAL HISTORY:chronic pancreatitis COMPARISON:None. TECHNIQUE:Contiguous, multislice, post intravenous contrast [80 cc of Isovue-370] CT scan of the abdomen and pelvis was performed in the axial plane with multiplanar reconstructions. FINDINGS: Coarse pancreatic calcifications at the pancreatic head accompanied by duct dilatation and decreased attenuation of the pancreatic head and mild peripancreatic fat stranding. Tiny calcific foci also noted in distal body of pancreas. Thickening of bilateral renal fascia noted. Liver is enlarged in size, measures about 19 cm in craniocaudal axis showing homogeneous attenuation. No focal mass lesion seen in liver. There is mild dilatation of central intrahepatic biliary radicals. This could be due to inflammatory stricture of distal CBD. Gallbladder shows no definite calculi inside. Spleen appear normal in size, shows normal contour and attenuation. Splenule noted measuring about 11 mm. No adrenal mass. Both kidneys appear normal in size, shows normal postcontrast enhancement and excretion. Hypodense lesion seen at the midpole cortex of left kidney measuring about 10 X 14 mm representing renal cyst. No calculus or hydronephrosis in either kidney. No ascites. Few subcentimeter para-aortic lymph nodes seen. Imaged bowel structures appear unremarkable. No bowel dilatation. Adequately filled urinary bladder, appear free from intraluminal stones, mass or diverticular outpouching. Normal-sized prostate. No acute osseous abnormality or suspicious bony lesions. Visualized sections of lower chest shows no focal mass or consolidation. IMPRESSION: 1. CT appearances showing coarse calcifications mainly at the pancreatic head showing decreased attenuation accompanied by duct dilatation and mild peripancreatic fat stranding representing chronic pancreatitis with acute exacerbation. Clinical correlation is suggested. 2. Mild dilatation of intrahepatic biliary radicles, could be due to inflammatory stricture of the distal CBDLeft renal cortical cyst. 3. Rest of the findings as detailed above. The [facility] ER was called at [phone] at 07:42 PM [employer], 12/03/2022 and significant medical findings were verbally communicated to nurse Jade. Electronically Signed by: Selene Mcdaniels MD. (12/03/2022 19:46:55 [employer])
[2022-12-03] MEDS ORDERED: Zofran 4 MG/2 ML VIAL IV PRN (20:59)
[2022-12-03] MEDS: Sodium Chloride 0.9% W/ 20 mEq KCl/LITER 1,000 ML IV SCH (21:09)
[2022-12-03 21:13] LABS: Bacteria None Seen /HPF (None Seen); Bilirubin Negative (Negative); Blood Negative (Negative); Epithelial Cells None Seen /HPF (None Seen); Glucose, Urine Negative (Negative); Hyaline Casts NONE SEEN /LPF (0-2); Ketones Negative (Negative); Leukocyte Esterase Negative (Negative); Nitrite Negative (Negative); Ph 5.5 (4.6-8.0); Protein,Urine Dip Negative (Negative); RBC 0-2 /HPF (0-5); Specific Gravity 1.015 (1.005-1.030); Urobilinogen 0.2 mg/dL (0.2); WBC 0-2 /HPF (0-5)
[2022-12-03 21:14] LABS: ADD URINE CULTURE? NO (NO); Appearance Clear (Clear)
[2022-12-03 21:16] LABS: D-DIMER QUANTITATIVE 2.87 mg/L (0.0-0.50)
--- NOTE | 2022-12-03 22:53 | PCM.HP ---
History of Present Illness - Chief Complaint Chief Complaint: acute pancreatitis History of Present Illness: is a 37 year old male with history of chronic pancreatitis presented to ER again with c/o right shoulder and RUQ abd pain - making it hard for him to breath due to the pain. He has been to ER x 2 these past 2 weeks and has been told the same but had refused admissions. Denies any alcohol use, drug use. Denies nausea, vomiting, diarrhea, SOB, chills, sweats. Denies syncope, he adache, dysuria, hematuria, flank pain. He did report a fever and body-aches and foggy head mid November. He had extensive work-up for this in Feb 2021 - no obstructing stone, no mass...essentially negative work-up. Etoh level today is < 10. Lipids panel pending. - Review of Systems Constitutional: No Symptoms, Fever Eyes: No Symptoms Ears, Nose, & Throat: No Symptoms Respiratory: No Symptoms Cardiac: No Symptoms Abdominal/Gastrointestinal: Abdominal Pain (right upper quadrant) Genitourinary Symptoms: No Symptoms Musculoskeletal: Joint Pain (R shoulder) Skin: No Symptoms Neurological: No Symptoms Psychological: No Symptoms Hematologic/Lymphatic: No Symptoms Immunological/Allergic: No Symptoms Medications & Allergies Home Medications: Home Medication List Omeprazole 40 mg PO DAILY 10/23/19 [History Confirmed 12/03/22] Cholecalciferol (Vitamin D3) [Vitamin D] 1 tab PO DAILY 11/20/22 [History Confirmed 12/03/22] Allergies/Adverse Reactions: Allergies Allergy/AdvReac Type Severity Reaction Status Date / Time No Known Drug Allergies Allergy Verified 11/25/22 16:02 - Past Medical History Past Medical History: Yes Neurological History: No Pertinent History ENT History: No Pertinent History Cardiac History: No Pertinent History Respiratory History: No Pertinent History Endocrine Medical History: No Pertinent History Musculoskelatal History: No Pertinent History GI Medical History: GERD, Pancreatitis, Other History: No Pertinent History Pyscho-Social History: Anxiety, Depression Male Reproductive Disorders: No Pertinent History Comment: Sutures placed in left outside (Middle) forearm. - Past Surgical History Past Surgical History: Yes Neuro Surgical History: No Pertinent History Cardiac History: No Pertinent History Respiratory Surgery: No Pertinent History GI Surgical History: No Pertinent History Genitourinary Surgical Hx: No Pertinent History Musculskeletal Surgical Hx: No Pertinent History Male Surgical History: No Pertinent History Other Surgical History: 3 sets of tubes in bilateral ears - Social History Smoking Status: Current every day smoker How long have you smoked: 2 Exposure to second hand smoke: Yes Alcohol: Occasionally Drug Use: none - Physical Exam Vital Signs: Vital Signs - 24 hr Temp Pulse Resp BP Pulse Ox 12/03/22 22:00 64 125/65 97 12/03/22 21:00 70 133/74 97 12/03/22 19:00 75 141/69 98 12/03/22 18:56 98 12/03/22 18:13 98.1 F 80 16 130/79 98 12/03/22 16:49 98.2 F 81 20 136/82 100 General Appearance: no apparent distress Neurologic Exam: alert, oriented x 3, cooperative Eye Exam: PERRL/EOMI, eyes nml inspection Ears, Nose, Throat Exam: normal ENT inspection Neck Exam: normal inspection, supple Respiratory Exam: normal breath sounds, lungs clear Cardiovascular Exam: regular rate/rhythm, normal heart sounds Gastrointestinal/Abdomen Exam: soft, normal bowel sounds, tenderness Rectal Exam: deferred Back Exam: normal inspection Extremity Exam: normal inspection Skin Exam: normal color Results - Labs Lab/Micro Results: Lab Results-Last 24 Hours 12/03/22 12/03/22 12/03/22 Range/Units 17:50 19:36 19:36 WBC (4.0-10.5) x10^3/uL RBC (4.1-5.6) x10^6/uL Hgb (12.5-18.0) g/dL Hct (42-50) % MCV (78-100) fL MCH (26-32) pg MCHC (32-36) g/dL RDW (11.5-14.0) % Plt Count (150-450) x10^3/uL MPV (7.5-11.0) fL Gran % (36.0-66.0) % Immature Gran % (Auto) (0.00-0.4) % Nucleat RBC Rel Count (0.00-0.1) % Eos # (Auto) (0-0.5) x10^3/uL Immature Gran # (Auto) (0.00-0.03) x10^3u/L Absolute Lymphs (auto) (1.0-4.6) x10^3/uL Absolute Monos (auto) (0.0-1.3) x10^3/uL Absolute Nucleated RBC (0.00-0.01) x10^3u/L Lymphocytes % (24.0-44.0) % Monocytes % (0.0-12.0) % Eosinophils % (0.00-5.0) % Basophils % (0.0-0.4) % Absolute Granulocytes (1.4-6.9) x10^3/uL Basophils # (0-0.4) x10^3/uL PT (9.4-12.5) SECONDS D-Dimer (0.0-0.50) mg/L Sodium (137-145) mmol/L Potassium (3.5-5.1) mmol/L Chloride (98-107) mmol/L Carbon Dioxide (22-30) mmol/L Anion Gap (5-15) MEQ/L BUN (9-20) mg/dL Creatinine (0.66-1.25) mg/dL Estimated GFR ML/MIN Glucose (74-106) mg/dL Lactic Acid 1.5 (0.4-2.0) Calcium (8.4-10.2) mg/dL Total Bilirubin (0.2-1.3) mg/dL AST (17-59) U/L ALT (0-50) U/L Alkaline Phosphatase (38-126) U/L Creatine Kinase (55-170) U/L Serum Total Protein (6.3-8.2) g/dL Albumin (3.5-5.0) g/dL Amylase (30-110) U/L Lipase (23-300) U/L Urine Color Yellow (Yellow) Urine Appearance Clear (Clear) Urine pH 5.5 (4.6-8.0) Ur Specific [place] 1.015 (1.005-1.030) Urine Protein Negative (Negative) Urine Glucose (UA) Negative (Negative) mg/dL Urine Ketones Negative (Negative) Urine Blood Negative (Negative) Urine Nitrite Negative (Negative) Urine Bilirubin Negative (Negative) Urine Urobilinogen 0.2 (0.2) mg/dL Ur Leukocyte Esterase Negative (Negative) U Hyaline Cast (Auto) NONE SEEN (0-2) /LPF Urine Microscopic RBC 0-2 (0-5) /HPF Urine Microscopic WBC 0-2 (0-5) /HPF Ur Epithelial Cells None Seen (None Seen) /HPF Urine Bacteria None Seen (None Seen) /HPF Urine Culture Reflexed NO (NO) Urine Opiates Level POSITIVE (NEGATIVE) Ur Methadone NEGATIVE (NEGATIVE) Urine Barbiturates NEGATIVE (NEGATIVE) Ur Phencyclidine (PCP) NEGATIVE (NEGATIVE) Urine Amphetamine NEGATIVE (NEGATIVE) U Benzodiazepine Level NEGATIVE (NEGATIVE) Urine Cocaine NEGATIVE (NEGATIVE) Urine Marijuana (THC) NEGATIVE (NEGATIVE) Ethyl Alcohol (0-10) mg/dL 12/03/22 12/03/22 12/03/22 Range/Units Unknown Unknown Unknown WBC 6.5 (4.0-10.5) x10^3/uL RBC 4.15 (4.1-5.6) x10^6/uL Hgb 13.4 (12.5-18.0) g/dL Hct 41.5 L (42-50) % MCV 100.0 (78-100) fL MCH 32.3 H (26-32) pg MCHC 32.3 (32-36) g/dL RDW 11.4 L (11.5-14.0) % Plt Count 358 (150-450) x10^3/uL MPV 9.1 (7.5-11.0) fL Gran % 68.8 H (36.0-66.0) % Immature Gran % (Auto) 0.5 H (0.00-0.4) % Nucleat RBC Rel Count 0.0 (0.00-0.1) % Eos # (Auto) 0.47 (0-0.5) x10^3/uL Immature Gran # (Auto) 0.03 (0.00-0.03) x10^3u/L Absolute Lymphs (auto) 0.96 L (1.0-4.6) x10^3/uL Absolute Monos (auto) 0.52 (0.0-1.3) x10^3/uL Absolute Nucleated RBC 0.00 (0.00-0.01) x10^3u/L Lymphocytes % 14.8 L (24.0-44.0) % Monocytes % 8.0 (0.0-12.0) % Eosinophils % 7.3 H (0.00-5.0) % Basophils % 0.6 (0.0-0.4) % Absolute Granulocytes 4.46 (1.4-6.9) x10^3/uL Basophils # 0.04 (0-0.4) x10^3/uL PT (9.4-12.5) SECONDS D-Dimer 2.87 H* (0.0-0.50) mg/L Sodium 141 (137-145) mmol/L Potassium 4.1 (3.5-5.1) mmol/L Chloride 102 (98-107) mmol/L Carbon Dioxide 30 (22-30) mmol/L Anion Gap 13.6 (5-15) MEQ/L BUN 8 L (9-20) mg/dL Creatinine 0.87 (0.66-1.25) mg/dL Estimated GFR > 60.0 ML/MIN Glucose 128 H (74-106) mg/dL Lactic Acid (0.4-2.0) Calcium 8.7 (8.4-10.2) mg/dL Total Bilirubin 0.30 (0.2-1.3) mg/dL AST 34 (17-59) U/L ALT 34 (0-50) U/L Alkaline Phosphatase 76 (38-126) U/L Creatine Kinase (55-170) U/L Serum Total Protein 7.3 (6.3-8.2) g/dL Albumin 3.8 (3.5-5.0) g/dL Amylase 1654 H (30-110) U/L Lipase 02485 H (23-300) U/L Urine Color (Yellow) Urine Appearance (Clear) Urine pH (4.6-8.0) Ur Specific [place] (1.005-1.030) Urine Protein (Negative) Urine Glucose (UA) (Negative) mg/dL Urine Ketones (Negative) Urine Blood (Negative) Urine Nitrite (Negative) Urine Bilirubin (Negative) Urine Urobilinogen (0.2) mg/dL Ur Leukocyte Esterase (Negative) U Hyaline Cast (Auto) (0-2) /LPF Urine Microscopic RBC (0-5) /HPF Urine Microscopic WBC (0-5) /HPF Ur Epithelial Cells (None Seen) /HPF Urine Bacteria (None Seen) /HPF Urine Culture Reflexed (NO) Urine Opiates Level (NEGATIVE) Ur Methadone (NEGATIVE) Urine Barbiturates (NEGATIVE) Ur Phencyclidine (PCP) (NEGATIVE) Urine Amphetamine (NEGATIVE) U Benzodiazepine Level (NEGATIVE) Urine Cocaine (NEGATIVE) Urine Marijuana (THC) (NEGATIVE) Ethyl Alcohol (0-10) mg/dL 12/03/22 Range/Units Unknown WBC (4.0-10.5) x10^3/uL RBC (4.1-5.6) x10^6/uL Hgb (12.5-18.0) g/dL Hct (42-50) % MCV (78-100) fL MCH (26-32) pg MCHC (32-36) g/dL RDW (11.5-14.0) % Plt Count (150-450) x10^3/uL MPV (7.5-11.0) fL Gran % (36.0-66.0) % Immature Gran % (Auto) (0.00-0.4) % Nucleat RBC Rel Count (0.00-0.1) % Eos # (Auto) (0-0.5) x10^3/uL Immature Gran # (Auto) (0.00-0.03) x10^3u/L Absolute Lymphs (auto) (1.0-4.6) x10^3/uL Absolute Monos (auto) (0.0-1.3) x10^3/uL Absolute Nucleated RBC (0.00-0.01) x10^3u/L Lymphocytes % (24.0-44.0) % Monocytes % (0.0-12.0) % Eosinophils % (0.00-5.0) % Basophils % (0.0-0.4) % Absolute Granulocytes (1.4-6.9) x10^3/uL Basophils # (0-0.4) x10^3/uL PT (9.4-12.5) SECONDS D-Dimer (0.0-0.50) mg/L Sodium (137-145) mmol/L Potassium (3.5-5.1) mmol/L Chloride (98-107) mmol/L Carbon Dioxide (22-30) mmol/L Anion Gap (5-15) MEQ/L BUN (9-20) mg/dL Creatinine (0.66-1.25) mg/dL Estimated GFR ML/MIN Glucose (74-106) mg/dL Lactic Acid (0.4-2.0) Calcium (8.4-10.2) mg/dL Total Bilirubin (0.2-1.3) mg/dL AST (17-59) U/L ALT (0-50) U/L Alkaline Phosphatase (38-126) U/L Creatine Kinase 114 (55-170) U/L Serum Total Protein (6.3-8.2) g/dL Albumin (3.5-5.0) g/dL Amylase (30-110) U/L Lipase (23-300) U/L Urine Color (Yellow) Urine Appearance (Clear) Urine pH (4.6-8.0) Ur Specific [place] (1.005-1.030) Urine Protein (Negative) Urine Glucose (UA) (Negative) mg/dL Urine Ketones (Negative) Urine Blood (Negative) Urine Nitrite (Negative) Urine Bilirubin (Negative) Urine Urobilinogen (0.2) mg/dL Ur Leukocyte Esterase (Negative) U Hyaline Cast (Auto) (0-2) /LPF Urine Microscopic RBC (0-5) /HPF Urine Microscopic WBC (0-5) /HPF Ur Epithelial Cells (None Seen) /HPF Urine Bacteria (None Seen) /HPF Urine Culture Reflexed (NO) Urine Opiates Level (NEGATIVE) Ur Methadone (NEGATIVE) Urine Barbiturates (NEGATIVE) Ur Phencyclidine (PCP) (NEGATIVE) Urine Amphetamine (NEGATIVE) U Benzodiazepine Level (NEGATIVE) Urine Cocaine (NEGATIVE) Urine Marijuana (THC) (NEGATIVE) Ethyl Alcohol < 10 (0-10) mg/dL - Radiology Impressions Radiology Exams & Impressions: Radiology Procedures Category Date Time Status ABDOMEN AND PELVIS W CONTRAST [CT] Stat Exams 12/03/22 17:28 Completed CHEST WITH CONTRAST [CT] Stat Exams 12/03/22 17:32 Completed Assessment/Plan (1) Acute pancreatitis Current Visit: No Status: Acute Assessment & Plan: He has acute on chronic pancreatitis. CT abd confirmed but no stone nor obstruction. He denies alcohol nor drug use. AST/ALT/Bili normal. Lipase 18,614, amylase 1,654. NPO, IVF, pain meds. Getting fasting lipids in AM. This could be viral-related as he had fever, body-ache, fogginess mid November. Code(s): K85.90 - ACUTE PANCREATITIS WITHOUT NECROSIS OR INFECTION, UNSP (2) GERD (gastroesophageal reflux disease) Current Visit: Yes Status: Acute Assessment & Plan: Resume home PPI Code(s): K21.9 - GASTRO-ESOPHAGEAL REFLUX DISEASE WITHOUT ESOPHAGITIS (3) Right upper quadrant abdominal pain Current Visit: Yes Status: Acute Assessment & Plan: Due to pancreatitis Code(s): R10.11 - RIGHT UPPER QUADRANT PAIN Telemedicine Encounter - Telemedicine Encounter Telemedicine Encounter: The entirety of this encounter was performed via Telemedicine" Pt gave me verbal consent to have this telemedicine visit
[2022-12-03] MEDS ORDERED: TYLENOL 325 MG PO PRN (23:00)
[2022-12-04] MEDS: Hydromorphone 1 mg/ml Injection IV PRN ×2 (00:22→08:04)
[2022-12-04 05:46] LABS: Absolute Neutrophil Ct (ANC) 3.38 x10^3/uL (1.4-6.9); BASOPHIL % 0.7 % (0.0-0.4); Basophil (Absolute #) 0.04 x10^3/uL (0-0.4); Eosinophil % 8.5 % (0.00-5.0); Eosinophil (Absolute #) 0.49 x10^3/uL (0-0.5); Hematocrit 38.7 % (42-50); Hemoglobin 12.3 g/dL (12.5-18.0); IMMATURE GRAN # 0.01 x10^3u/L (0.00-0.03); IMMATURE GRAN % 0.2 % (0.00-0.4); Lymphocyte (Absolute #) 1.21 x10^3/uL (1.0-4.6); Lymphocytes % 20.9 % (24.0-44.0); Mean Corpuscular Hemoglobin 31.8 pg (26-32); Mean Corpuscular Hgb Concent. 31.8 g/dL (32-36); Mean Platelet Volume 8.9 fL (7.5-11.0); Monocyte (Absolute #) 0.65 x10^3/uL (0.0-1.3); Monocytes % 11.2 % (0.0-12.0); Neutrophil % 58.5 % (36.0-66.0); Platelet Count 277 x10^3/uL (150-450); Red Blood Count 3.87 x10^6/uL (4.1-5.6); Red Cell Distribution Width 11.6 % (11.5-14.0); White Blood Count 5.8 x10^3/uL (4.0-10.5)
[2022-12-04 06:41] LABS: ALBUMIN 3.3 g/dL (3.5-5.0); ALKALINE PHOSPHATASE 73 U/L (38-126); AMYLASE 868 U/L (30-110); ANION GAP 10.1 MEQ/L (5-15); BLOOD UREA NITROGEN 7 mg/dL (9-20); CHLORIDE 104 mmol/L (98-107); Calcium 8.4 mg/dL (8.4-10.2); Carbon Dioxide 30 mmol/L (22-30); Cholesterol 118 mg/dL (50-200); Creatinine 1 0.84 mg/dL (0.66-1.25); EST GLOMERULAR FILTRATION RATE > 60.0 ML/MIN; Glucose 86 mg/dL (74-106); HDL CHOLESTEROL 9 mg/dL (40-60); LDL, DIRECT 81 mg/dL (30-100); Potassium 4.2 mmol/L (3.5-5.1); Risk Ratio 13.1; SGOT/AST 28 U/L (17-59); SGPT/ALT 31 U/L (0-50); SODIUM 140 mmol/L (137-145); TRIGLYCERIDE 149 mg/dL (30-150); Total Protein 6.5 g/dL (6.3-8.2)
[2022-12-04 07:51] LABS: LIPASE 5889 U/L (23-300)
[2022-12-04] MEDS: Sodium Chloride 0.9% W/ 20 mEq KCl/LITER 1,000 ML IV SCH (08:03)
[2022-12-04 08:04] VITALS: RESP 19
[2022-12-04] MEDS ORDERED: ENOXAPARIN SODIUM SQ SCH (10:00)
[2022-12-04] MEDS ORDERED: PROTONIX 40 MG IV IV SCH (10:00)
[2022-12-04] MEDS ORDERED: Protonix 40MG Tablet PO SCH (10:00)
[2022-12-04] MEDS ORDERED: VITAMIN D PO SCH (10:00)
[2022-12-04] MEDS ORDERED: NON-FORMULARY ITEM (Omeprazole [Omeprazole] 40 MG Capsule.Dr) PO SCH (10:00)
[2022-12-04] MEDS ORDERED: NON-FORMULARY ITEM (Cholecalciferol (Vitamin D3)** [Vitamin D***] 400 UNIT Tablet) PO SCH (10:00)
[2022-12-04 12:54] VITALS: BP 134/80; PULSE 61; TEMP 97.4; O2SAT 99
--- NOTE | 2022-12-06 05:22 | PCM.DS ---
Discharge Summary Date of Admission: 12/03/22 23:56 Date of Discharge: 04 December 2022 Admitting Physician: BRIANDA SKINNER DO Primary Care Provider: PATRICIA PALENCIA Allergies Allergies No Known Drug Allergies Allergy (Verified 11/25/22 16:02) Hospital Summary - Hospital Course Hospital Course: Admitted overnight with mild pancreatitis. startd having pain a week ago. brought in by . Labs normalized this AM, pain ronna to 2/10. Wants to go home. Will plan dc if tolerates solid food. - Vitals & Intake/Output Vital Signs: Vital Signs Temperature 97.4 F 12/04/22 16:00 Pulse Rate 61 12/04/22 16:00 Respiratory Rate 19 12/04/22 16:00 Blood Pressure 134/80 12/04/22 16:00 O2 Sat by Pulse Oximetry 99 12/04/22 16:00 Intake & Output: Intake & Output 12/03/22 12/04/22 12/05/22 12/06/22 11:59 11:59 11:59 11:59 Intake Total 250 Balance 250 Weight 82 kg - Lab Result Diagrams: 12/04/22 05:39 12/04/22 05:39 Discharge Exam Neurologic Exam: alert, oriented x 3, cooperative Neck Exam: normal inspection Respiratory Exam: normal breath sounds Cardiovascular Exam: regular rate/rhythm, normal heart sounds Gastrointestinal/Abdomen Exam: soft, normal bowel sounds Final Diagnosis/Problem List - Final Discharge Diagnosis/Problem (1) Anxiety and depression Status: Acute Assessment & Plan: Continue home meds and treatment Code(s): F41.9 - ANXIETY DISORDER, UNSPECIFIED; F32.9 - MAJOR DEPRESSIVE DISORDER, SINGLE EPISODE, UNSPECIFIED (2) Chronic recurrent pancreatitis Status: Acute Assessment & Plan: Resolved - needs to follow up with GI - abstain from alcohol - Labs normalized today, tolerating PO; will dc Code(s): K86.1 - OTHER CHRONIC PANCREATITIS (3) GERD (gastroesophageal reflux disease) Status: Acute Assessment & Plan: CPM Code(s): K21.9 - GASTRO-ESOPHAGEAL REFLUX DISEASE WITHOUT ESOPHAGITIS Telemedicine Encounter - Telemedicine Encounter Telemedicine Encounter: The entirety of this encounter was performed via Telemedicine" - Discharge Disposition: Home, Self-Care Condition: Fair Prescriptions: Continue Omeprazole 40 mg PO DAILY Cholecalciferol (Vitamin D3) [Vitamin D] 1 tab PO DAILY Instructions: Acute pancreatitis Follow up with: PATRICIA PALENCIA MD [Primary Care Provider] - Forms: Discharge Instructions
== END 2022-12-04 16:49 | disposition home or self-care (01) ==
LOC: ED 16:45 → MED SURG 23:56
PROVIDERS: ADMIT Internal Medicine; ATTEND Internal Medicine
DX: K85.90 Acute pancreatitis without necrosis or infection, unspecified (principal); F41.9 Anxiety disorder, unspecified; F32.9 Major depressive disorder, single episode, unspecified; K86.1 Other chronic pancreatitis; K21.9 Gastro-esophageal reflux disease without esophagitis; R10.11 Right upper quadrant pain; Z79.899 Other long term (current) drug therapy; Z20.828 Contact with and (suspected) exposure to other viral communicable diseases; Z72.0 Tobacco use
CPT/HCPCS: 36000; 36415; 71260; 74177; 80053; 80061; 80307; 81001; 82077; 82150; 82550; 83036; 83605; 83690; 83721; 85025; 85379; 85610; 96360; 96374; 96375; 99285; 99291; G0378; Q3014; J1170; J1650; J2405; J3010; A9270-GY

== ENCOUNTER 2023-02-12 18:58 | Emergency (ER) | payer BC, OTHER ==
[2023-02-12] MEDS ORDERED: PROTONIX 40 MG IV IV ONE ×2 (19:17→19:24)
[2023-02-12] MEDS ORDERED: Compazine 10 MG/2 ML IV ONE (19:17)
[2023-02-12] MEDS ORDERED: Sodium Chloride 0.9% 1000 ML 1,000 ML IV STA (19:17)
[2023-02-12 19:21] VITALS: RESP 16; TEMP 97.8; O2SAT 97
[2023-02-12] MEDS ORDERED: Sodium Chloride 0.9% 1000 ML 1,000 ML ONE (19:24)
[2023-02-12] MEDS ORDERED: Compazine 10 MG/2 ML ONE (19:24)
--- NOTE | 2023-02-12 19:33 | ERPHSYRPT ---
- History of Present Illness Time Seen by Provider: 02/12/23 19:30 Historian: patient, family Exam Limitations: no limitations Patient Subjective Stated Complaint: pt states that today he began to vomit. 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 Today he came in started having some nausea and vomiting so he came to the emergency room he denies any abdominal distention any problem with his abdominals surgical wound fever or chills or diarrhea. Timing/Duration: today Activities at Onset: none Severity of Pain-Max: mild Severity of Pain-Current: mild Modifying Factors: Improves With: nothing Associated Symptoms: nausea Allergies/Adverse Reactions: No Known Drug Allergies Allergy (Verified 02/12/23 19:06) Home Medications: Omeprazole 40 mg PO DAILY 10/23/19 [History] Cholecalciferol (Vitamin D3) [Vitamin D] 1 tab PO DAILY 11/20/22 [History] Apixaban [Eliquis] 5 mg PO DAILY 02/12/23 [History] Metoclopramide HCl 10 mg [Reglan 10 MG] 10 mg PO ACHS 02/12/23 [History] Ondansetron ODT 4 MG [Zofran Odt 4 mg] 4 mg PO Q6HPRN PRN 02/12/23 [History] Oxycodone HCl [Oxycontin] 10 mg PO Q4HPRN PRN 02/12/23 [History] methocarbamoL [Methocarbamol] 1,000 mg PO BID 02/12/23 [History] Hx Tetanus, Diphtheria Vaccination/Date Given: No Hx Influenza Vaccination/Date Given: No Hx Pneumococcal Vaccination/Date Given: No Travel Risk - International Travel Have you traveled outside of the country in past 3 weeks: No - Coronavirus Screening Are you exhibiting any of the following symptoms?: Yes Symptoms: Vomiting/Diarrhea Close contact with a COVID-19 positive Pt in past 14-21 Days: No - Vaccine Status Have you recieved a Covid-19 vaccination: No - Review of Systems Constitutional: No Fever, No Chills Eyes: No Symptoms Ears, Nose, & Throat: No Symptoms Respiratory: No Cough, No Dyspnea Cardiac: No Chest Pain, No Edema, No Syncope Abdominal/Gastrointestinal: Nausea, Vomiting, No Abdominal Pain, No Diarrhea Genitourinary Symptoms: No Dysuria Musculoskeletal: No Back Pain, No Neck Pain Skin: No Rash Neurological: No Dizziness, No Focal Weakness, No Sensory Changes Psychological: No Symptoms Endocrine: No Symptoms All Other Systems: Reviewed and Negative - Past Medical History Pertinent Past Medical History: Yes Neurological History: No Pertinent History ENT History: No Pertinent History Cardiac History: No Pertinent History Respiratory History: No Pertinent History Endocrine Medical History: No Pertinent History Musculoskeletal History: No Pertinent History GI Medical History: GERD, Pancreatitis, Other History: No Pertinent History Psycho-Social History: Anxiety, Depression Male Reproductive Disorders: No Pertinent History Other Medical History: Sutures placed in left outside (Middle) forearm. - Past Surgical History Past Surgical History: Yes Neuro Surgical History: No Pertinent History Cardiac: No Pertinent History Respiratory: No Pertinent History Gastrointestinal: No Pertinent History Genitourinary: No Pertinent History Musculoskeletal: No Pertinent History Male Surgical History: No Pertinent History Other Surgical History: scraping and rerouting of pancreas ducts - Social History Smoking Status: Former smoker How long have you smoked: 2 Exposure to second hand smoke: Yes Drug Use: none Patient Lives Alone: No - Nursing Vital Signs Nursing Vital Signs: Initial Vital Signs Temperature 97.8 F 02/12/23 19:10 Pulse Rate 112 H 02/12/23 19:10 Respiratory Rate 16 02/12/23 19:10 Blood Pressure 138/99 02/12/23 19:10 O2 Sat by Pulse Oximetry 97 02/12/23 19:10 Pain Scale Pain Intensity 10 - Physical Exam General Appearance: no apparent distress, alert Eye Exam: PERRL/EOMI, eyes nml inspection Ears, Nose, Throat Exam: normal ENT inspection, pharynx normal, moist mucous membranes Neck Exam: normal inspection, non-tender, supple, full range of motion Respiratory Exam: normal breath sounds, lungs clear, No respiratory distress Cardiovascular Exam: regular rate/rhythm, normal heart sounds Gastrointestinal/Abdomen Exam: soft, other (surgical wound appears intact), No tenderness, No mass Back Exam: normal inspection, normal range of motion, No CVA tenderness, No vertebral tenderness Extremity Exam: normal inspection, normal range of motion, pelvis stable Neurologic Exam: alert, oriented x 3, cooperative, normal mood/affect, nml cerebellar function, sensation nml, No motor deficits Skin Exam: normal color, warm, dry SpO2: 97 - Course Nursing assessment & vital signs reviewed: Yes Ordered Tests: Active Orders 24 hr Category Date Time Status IV Insertion STAT Care 02/12/23 19:39 Active AMYLASE Stat Lab 02/12/23 19:35 Completed CBC W DIFF Stat Lab 02/12/23 19:35 Completed CMP Stat Lab 02/12/23 19:35 Completed LIPASE Stat Lab 02/12/23 19:35 Completed Medication Summary Generic Name Dose Route Start Last Admin Trade Name Freq PRN Reason Stop Dose Admin Sodium Chloride 1,000 mls @ 999 mls/hr 02/12/23 19:17 02/12/23 19:25 Sodium Chloride 0.9% 1000 Ml IV 02/12/23 20:17 999 mls/hr .Q1H1M STA Administration Discontinued Medications Generic Name Dose Route Start Last Admin Trade Name Freq PRN Reason Stop Dose Admin Sodium Chloride Confirm 02/12/23 19:24 Sodium Chloride 0.9% 1000 Ml Administered 02/12/23 19:25 Dose 1,000 mls @ ud .ROUTE .STK-MED ONE Pantoprazole Sodium 40 mg 02/12/23 19:17 02/12/23 19:25 Pantoprazole 40 Mg Vial IV 02/12/23 19:18 40 mg STAT ONE Administration Pantoprazole Sodium Confirm 02/12/23 19:24 Pantoprazole 40 Mg Vial Administered 02/12/23 19:25 Dose 40 mg IV .STK-MED ONE Prochlorperazine Edisylate 10 mg 02/12/23 19:17 02/12/23 19:25 Prochlorperazine Edisylate 10 Mg/2 Ml Vial IV 02/12/23 19:18 10 mg STAT ONE Administration Prochlorperazine Edisylate Confirm 02/12/23 19:24 Prochlorperazine Edisylate 10 Mg/2 Ml Vial Administered 02/12/23 19:25 Dose 10 mg .ROUTE .STK-MED ONE Lab/Rad Data: Laboratory Result Diagrams 02/12/23 19:35 02/12/23 19:35 Laboratory Results 02/12/23 02/12/23 Range/Units 19:35 19:35 WBC 6.2 (4.0-10.5) x10^3/uL RBC 4.30 (4.1-5.6) x10^6/uL Hgb 13.1 (12.5-18.0) g/dL Hct 39.1 L (42-50) % MCV 90.9 (78-100) fL MCH 30.5 (26-32) pg MCHC 33.5 (32-36) g/dL RDW 12.4 (11.5-14.0) % Plt Count 473 H (150-450) x10^3/uL MPV 8.8 (7.5-11.0) fL Gran % 76.3 H (36.0-66.0) % Immature Gran % (Auto) 0.3 (0.00-0.4) % Nucleat RBC Rel Count 0.0 (0.00-0.1) % Eos # (Auto) 0.02 (0-0.5) x10^3/uL Immature Gran # (Auto) 0.02 (0.00-0.03) x10^3u/L Absolute Lymphs (auto) 0.84 L (1.0-4.6) x10^3/uL Absolute Monos (auto) 0.56 (0.0-1.3) x10^3/uL Absolute Nucleated RBC 0.00 (0.00-0.01) x10^3u/L Lymphocytes % 13.7 L (24.0-44.0) % Monocytes % 9.1 (0.0-12.0) % Eosinophils % 0.3 (0.00-5.0) % Basophils % 0.3 (0.0-0.4) % Absolute Granulocytes 4.69 (1.4-6.9) x10^3/uL Basophils # 0.02 (0-0.4) x10^3/uL Sodium 141 (137-145) mmol/L Potassium 4.0 (3.5-5.1) mmol/L Chloride 101 (98-107) mmol/L Carbon Dioxide 25 (22-30) mmol/L Anion Gap 18.6 H (5-15) MEQ/L BUN 11 (9-20) mg/dL Creatinine 0.82 (0.66-1.25) mg/dL Estimated GFR > 60.0 ML/MIN Glucose 164 H (74-106) mg/dL Calcium 9.7 (8.4-10.2) mg/dL Total Bilirubin 0.70 (0.2-1.3) mg/dL AST 70 H (17-59) U/L ALT 124 H (0-50) U/L Alkaline Phosphatase 157 H (38-126) U/L Serum Total Protein 8.1 (6.3-8.2) g/dL Albumin 4.4 (3.5-5.0) g/dL Amylase 40 (30-110) U/L Lipase 103 (23-300) U/L - Progress Progress: improved Counseled pt/family regarding: lab results, diagnosis, need for follow-up Medical Desision Making - Independent Historian Additional History obtained from: Spouse - Diagnostic Testing Diagnostic test were ordered, analyzed, and reviewed by me: Yes - Risk of complications Minimal Risk: Minimal risk of morbidity - Departure Departure Disposition: Home Clinical Impression: Nausea and vomiting Qualifiers: Vomiting type: unspecified Qualified Code(s): R11.2 - Nausea with vomiting, unspecified Condition: Stable Critical Care Time: No Referrals: RICHARD MONTES MD [Primary Care Provider] - Follow Up with PCP/3 days Additional Instructions: Discharge/Care Plan SUKUMAR PATTEN was seen on 02/12/23 in the Emergency Room. The patient was counseled regarding Diagnosis,Lab results, Imaging studies, need for follow up and when to return to the Emergency Room. Prescriptions given: Discharge Note I have spoken with the patient and/or caregivers. I have explained the patient's condition, diagnosis and treatment plan based on the information available to me at this time. I have answered the patient's and/or caregiver's questions and addressed any concerns. The patient and/or caregivers have as good understanding of the patient's diagnosis, condition and treatment plan as can be expected at this point. The vital signs have been stable. The patient's condition is stable and appropriate for discharge from the emergency department. The patient will pursue further outpatient evaluation with the primary care physician or other designated or consulting physician as outlined in the discharge instructions. The patient and/or caregivers are agreeable to this plan of care and follow-up instructions have been explained in detail. The patient and/or caregivers have received these instruction. The patient/and or caregivers are aware that any significant change in condition or worsening of symptoms should prompt an immediate return to this or the closest emergency department or call 911. SUKUMAR PATTEN was seen on 02/12/23 n the Emergency Room. At that time you were treated for an emergent condition, during your visit Laboratory, Radiology and/or other procedures may have been ordered. It is very important that you follow-up with your Primary Care Physician RICHARD MONTES within the next 24-48 hours to review your Emergency Room visit and the final results of testing that was ordered. Some test results such as Urine Cultures, Blood Cultures, and other cultures if ordered will not be finalized for 24-48 hours. If you do not have a Primary Care Provider please call the medical records department at [phone] ext [phone] to obtain a copy of your results or you may sign into our patient portal to obtain these results by visiting us @ [email or web address] and completing the following steps: 1. Click on the Patient Portal link 2. Click the Patient Self Enrollment Link to complete the enrollment form and entering your 3. Once the enrollment form is completed you will receive an email with a temporary ID and password at the email address you provided. 4. Next choose a user name and password. Your user name must be at least 4 characters long and your password must be at least 4 characters long. 5. Choose a security question from the list and provide your answer to the question. If you already have signed into the Health Portal you may access your Health Care Information 29/11 by the following steps: 1. Login to our website @ [email or web address] 2. Enter your original user name and password. FAQS The [facility] Health Portal is an online tool that contains your Lab Results, Radiology Reports, Visit History, Discharge Instructions and Health Summary Lab and Radiology Results will not be available for 72 hours on the portal. The Portal is a secure site, passwords are encryted and URLs are re-written so they cannot be copied and pasted. You and authorized family members are the only ones who can access your Portal. Also there is a timeout feature that protects your information if you leave the Portal page open. If you have technical difficulty please use the Contact Us link on the page this will allow you to submit any questions you have regarding the Portal or you may contact the Medical Record Department at [phone] ext [phone].
[2023-02-12 19:39] LABS: Absolute Neutrophil Ct (ANC) 4.69 x10^3/uL (1.4-6.9); BASOPHIL % 0.3 % (0.0-0.4); Basophil (Absolute #) 0.02 x10^3/uL (0-0.4); Eosinophil % 0.3 % (0.00-5.0); Eosinophil (Absolute #) 0.02 x10^3/uL (0-0.5); Hematocrit 39.1 % (42-50); Hemoglobin 13.1 g/dL (12.5-18.0); IMMATURE GRAN # 0.02 x10^3u/L (0.00-0.03); IMMATURE GRAN % 0.3 % (0.00-0.4); Lymphocyte (Absolute #) 0.84 x10^3/uL (1.0-4.6); Lymphocytes % 13.7 % (24.0-44.0); Mean Cell Volume 90.9 fL (78-100); Mean Corpuscular Hemoglobin 30.5 pg (26-32); Mean Corpuscular Hgb Concent. 33.5 g/dL (32-36); Mean Platelet Volume 8.8 fL (7.5-11.0); Monocyte (Absolute #) 0.56 x10^3/uL (0.0-1.3); Monocytes % 9.1 % (0.0-12.0); Neutrophil % 76.3 % (36.0-66.0); Platelet Count 473 x10^3/uL (150-450); Red Cell Distribution Width 12.4 % (11.5-14.0); White Blood Count 6.2 x10^3/uL (4.0-10.5)
[2023-02-12 19:50] LABS: ALBUMIN 4.4 g/dL (3.5-5.0); ALKALINE PHOSPHATASE 157 U/L (38-126); AMYLASE 40 U/L (30-110); ANION GAP 18.6 MEQ/L (5-15); BLOOD UREA NITROGEN 11 mg/dL (9-20); CHLORIDE 101 mmol/L (98-107); Calcium 9.7 mg/dL (8.4-10.2); Carbon Dioxide 25 mmol/L (22-30); Creatinine 1 0.82 mg/dL (0.66-1.25); EST GLOMERULAR FILTRATION RATE > 60.0 ML/MIN; Glucose 164 mg/dL (74-106); LIPASE 103 U/L (23-300); SGOT/AST 70 U/L (17-59); SGPT/ALT 124 U/L (0-50); SODIUM 141 mmol/L (137-145); Total Protein 8.1 g/dL (6.3-8.2)
[2023-02-12 20:04] VITALS: BP 132/79
[2023-02-12 20:43] VITALS: PULSE 94
== END 2023-02-12 20:55 | disposition home or self-care (01) ==
LOC: ED 18:58
DX: R11.2 Nausea with vomiting, unspecified (principal); Z79.01 Long term (current) use of anticoagulants; Z79.891 Long term (current) use of opiate analgesic; Z79.899 Other long term (current) drug therapy; Z28.310 Unvaccinated for COVID-19
CPT/HCPCS: 36000; 36415; 80053; 82150; 83690; 85025; 96360; 96374; 99284

== ENCOUNTER 2023-09-13 18:39 | Emergency (ER) | payer BC, OTHER ==
[2023-09-13 19:03] VITALS: BP 141/87; PULSE 61; RESP 14; TEMP 97.4; O2SAT 98
== END 2023-09-13 19:22 | disposition left against medical advice (07) ==
LOC: ED 18:39
DX: R11.0 Nausea (principal)
CPT/HCPCS: 99281; G0463

== ENCOUNTER 2024-02-13 17:40 | Emergency (ER) | payer BC, OTHER ==
[2024-02-13 18:24] VITALS: O2SAT 97
[2024-02-13 18:30] VITALS: TEMP 97.9
[2024-02-13] MEDS ORDERED: BACIGUENT PACKET ONE (19:21)
--- NOTE | 2024-02-13 19:21 | ERPHSYRPT ---
- History of Present Illness Time Seen by Provider: 02/13/24 19:10 Source: patient, family Exam Limitations: no limitations Patient Subjective Stated Complaint: wound check. Patient had sutures at [facility] today. Triage Nursing Assessment: Patient ambulated back to ER. Dressing removed to E. Sutures are intact and well approximated. Some slight seeping of blood noted around some of the sutures. 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 Area cleansed and rewrapped. Physician History: This is a 38-year-old white male patient who suffered a skin laceration to his left lower extremity along the distal third of his left tibia. The skin laceration was closed today at [facility]. 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 He wanted the wound rechecked. His tetanus status is up-to-date. He has no significant pain. Timing/Duration: today Severity: mild Location: extremities (Left lower extremity skin laceration) Allergies/Adverse Reactions: No Known Drug Allergies Allergy (Verified 02/13/24 18:10) Home Medications: Omeprazole 40 mg PO DAILY 10/23/19 [History] Famotidine 20 mg PO DAILY 09/13/23 [History] Fluoxetine HCl 20 mg [Prozac 20 MG] 20 mg PO HS 09/13/23 [History] Lipase/Protease/Amylase [Angela Joshua 36,000 Unit Capsule] 2 cap PO ACHS 09/13/23 [History] Hx Tetanus, Diphtheria Vaccination/Date Given: Yes Hx Influenza Vaccination/Date Given: No Hx Pneumococcal Vaccination/Date Given: No Immunizations Up to Date: Yes Travel Risk - International Travel Have you traveled outside of the country in past 3 weeks: No - Emerging Infectious Disease Are you exhibiting symptoms associated with any current EIDs: No - Review of Systems Constitutional: No Symptoms Eyes: No Symptoms Ears, Nose, & Throat: No Symptoms Respiratory: No Symptoms Cardiac: No Symptoms Abdominal/Gastrointestinal: No Symptoms Genitourinary Symptoms: No Symptoms Musculoskeletal: No Symptoms Skin: Other (Skin laceration repair site covered in a thin dressing with bloody drainage on the dressing) Neurological: No Symptoms Psychological: No Symptoms Endocrine: No Symptoms Hematologic/Lymphatic: No Symptoms Immunological/Allergic: No Symptoms All Other Systems: Reviewed and Negative - Past Medical History Pertinent Past Medical History: Yes Neurological History: No Pertinent History ENT History: No Pertinent History Cardiac History: No Pertinent History Respiratory History: No Pertinent History Endocrine Medical History: No Pertinent History Musculoskeletal History: No Pertinent History GI Medical History: GERD, Pancreatitis, Other History: No Pertinent History Psycho-Social History: Anxiety, Depression Male Reproductive Disorders: No Pertinent History Other Medical History: Sutures placed in left outside (Middle) forearm. - Past Surgical History Past Surgical History: Yes Neuro Surgical History: No Pertinent History Cardiac: No Pertinent History Respiratory: No Pertinent History Gastrointestinal: No Pertinent History Genitourinary: No Pertinent History Musculoskeletal: No Pertinent History Male Surgical History: No Pertinent History Other Surgical History: scraping and rerouting of pancreas ducts - Social History Smoking Status: Former smoker How long have you smoked: 2 Exposure to second hand smoke: Yes Drug Use: none Patient Lives Alone: No - Social Determinants of Health Will the patient participate in the screening: Declined to provide - Nursing Vital Signs Nursing Vital Signs: Initial Vital Signs Temperature 97.9 F 02/13/24 17:42 Pulse Rate 70 02/13/24 17:42 Respiratory Rate 17 02/13/24 17:42 Blood Pressure 120/80 02/13/24 17:42 O2 Sat by Pulse Oximetry 98 02/13/24 17:42 Pain Scale Pain Intensity 0 - Physical Exam General Appearance: no apparent distress, alert, thin Eye Exam: PERRL/EOMI, eyes nml inspection Ears, Nose, Throat Exam: normal ENT inspection, moist mucous membranes Neck Exam: normal inspection, non-tender, supple, full range of motion Respiratory Exam: airway intact, No chest tenderness, No respiratory distress Gastrointestinal/Abdomen Exam: No tenderness Rectal Exam: not done Back Exam: normal inspection, normal range of motion, No CVA tenderness, No vertebral tenderness Extremity Exam: normal range of motion, pelvis stable Neurologic Exam: alert, oriented x 3, cooperative, hander in II-XII nml as tested, normal mood/affect, nml cerebellar function, nml station & gait, sensation nml Skin Exam: laceration Lymphatic Exam: No adenopathy SpO2 Interpretation: normal SpO2: 97 O2 Delivery: Room Air Ordered Tests: Medication Summary Discontinued Medications Generic Name Dose Route Start Last Admin Trade Name Freq PRN Reason Stop Dose Admin Bacitracin Zinc Confirm 02/13/24 19:21 Bacitracin Packet 1 Each Pckt Administered 02/13/24 19:22 Dose 1 each .ROUTE .STK-MED ONE Bacitracin Zinc 0.9 each 02/13/24 19:25 02/13/24 19:26 Bacitracin Packet 1 Each Pckt TP 02/13/24 19:26 0.9 each STAT ONE Administration - Progress Progress Note: 02/13/24 19:34 My medical decision making and the assignment of low complexity to this patient's medical issue today is based on review of the patient's past medical history, review the patient's medication list, reviewed patient drug allergy list, history present illness and physical findings on examination. The workup does not require any laboratory radiographic studies. Counseled pt/family regarding: diagnosis, need for follow-up Medical Desision Making - Independent Historian Additional History obtained from: Spouse - Diagnostic Testing Diagnostic test were ordered, analyzed, and reviewed by me: No - Risk of complications Minimal Risk: Minimal risk of morbidity - Departure Departure Disposition: Home Clinical Impression: Laceration of left leg, Visit for wound check Condition: Stable Critical Care Time: No Referrals: RICHARD MONTES MD [Primary Care Provider] - Follow up/PCP as directed Additional Instructions: Keep the current pressure dressing in place until the evening of 02/14/2024. Also, apply ice pack to the area 3-4 times a day for the next 24 hours. May remove the dressing in 24 hours. May rinse the site at that time allowing the soapy water to flow over the laceration repair site. Blot dry use a doll wig maker rooted hair and reapply thin layer of antibiotic ointment followed by nonstick gauze/bandage. Suture removal in 8 to 10 days. Keep a pressure dressing in place if you are at work site.
[2024-02-13] MEDS: BACIGUENT PACKET TP ONE (19:26)
[2024-02-13 19:27] VITALS: BP 140/82; PULSE 70; RESP 17
== END 2024-02-13 19:40 | disposition home or self-care (01) ==
LOC: ED 17:40
DX: Z48.00 Encounter for change or removal of nonsurgical wound dressing (principal); S81.812A Laceration without foreign body, left lower leg, initial encounter; Z79.899 Other long term (current) drug therapy
CPT/HCPCS: 99282; A9270-GY

== ENCOUNTER 2024-02-25 19:02 | Emergency (ER) | payer OTHER ==
[2024-02-25 19:25] VITALS: RESP 18; TEMP 98.2; O2SAT 97
--- NOTE | 2024-02-25 19:33 | ERPHSYRPT ---
- History of Present Illness Time Seen by Provider: 02/25/24 19:30 Source: patient Exam Limitations: no limitations Patient Subjective Stated Complaint: pt states that he cut his leg with some metal on the 7th. pt states that his stitches came out after 10 days. pt states that wound is draining and will not stay closed. Triage Nursing Assessment: pt ambulated into the er; pt is axo x4; c/o wound check; pt denies pain; laceration present to left calf; laceration is 5 cm x 1 cm; yellow drainage present; area around laceration is red and warm to the touch; no respiratory distress present; hypertensive Physician History: 38yo m presents via private vehicle for evaluation of left lower leg wound. Pt had laceration from metal piping 2 weeks ago, was seen at [facility] and received sutures for wound closure, sutures were removed after 10 days, shortly after removal the wound began to open and has had some purulent drainage. Pt denies any significant pain in the LE, denies any fevers at home. Timing/Duration: week(s) (2) Allergies/Adverse Reactions: No Known Drug Allergies Allergy (Verified 02/25/24 19:14) Home Medications: Omeprazole 40 mg PO DAILY 10/23/19 [History] Fluoxetine HCl 20 mg [Prozac 20 MG] 20 mg PO HS 09/13/23 [History] Lipase/Protease/Amylase [Angela Joshua 36,000 Unit Capsule] 2 cap PO ACHS 09/13/23 [H istory] Hx Tetanus, Diphtheria Vaccination/Date Given: Yes (05/09/20) Hx Influenza Vaccination/Date Given: No Hx Pneumococcal Vaccination/Date Given: No Travel Risk - International Travel Have you traveled outside of the country in past 3 weeks: No - Emerging Infectious Disease Are you exhibiting symptoms associated with any current EIDs: No - Review of Systems Constitutional: No Fever, No Chills Respiratory: No Symptoms Cardiac: No Symptoms Skin: Skin Lesions - Past Medical History Pertinent Past Medical History: Yes Neurological History: No Pertinent History ENT History: No Pertinent History Cardiac History: No Pertinent History Respiratory History: No Pertinent History Endocrine Medical History: No Pertinent History Musculoskeletal History: No Pertinent History GI Medical History: GERD, Pancreatitis, Other History: No Pertinent History Psycho-Social History: Anxiety, Depression Male Reproductive Disorders: No Pertinent History Other Medical History: Sutures placed in left outside (Middle) forearm. - Past Surgical History Past Surgical History: Yes Neuro Surgical History: No Pertinent History Cardiac: No Pertinent History Respiratory: No Pertinent History Gastrointestinal: No Pertinent History Genitourinary: No Pertinent History Musculoskeletal: No Pertinent History Male Surgical History: No Pertinent History Other Surgical History: scraping and rerouting of pancreas ducts - Social History Smoking Status: Former smoker How long have you smoked: 2 Exposure to second hand smoke: Yes Drug Use: none Patient Lives Alone: No - Social Determinants of Health Will the patient participate in the screening: Yes Do you worry about a steady place to live?: No Do you have any problems with any of the following?: No known problems In the past 12 months,have you had to go without utilities?: No Transportation Issues: No Has anyone in your support network made you feel unsafe?: No Have you or anyone in your house had to go without enough: No - Nursing Vital Signs Nursing Vital Signs: Initial Vital Signs Temperature 98.2 F 02/25/24 19:15 Pulse Rate 74 02/25/24 19:15 Respiratory Rate 18 02/25/24 19:15 Blood Pressure 149/88 02/25/24 19:15 O2 Sat by Pulse Oximetry 97 02/25/24 19:15 Pain Scale Pain Intensity 0 - Physical Exam General Appearance: no apparent distress Respiratory Exam: normal breath sounds, lungs clear, airway intact, No chest tenderness, No respiratory distress Cardiovascular Exam: regular rate/rhythm, normal peripheral pulses, No edema Skin Exam: normal color, warm, dry, laceration (3cm linear laceration w/ evidence of prior sutures, dehiscence noted, small amount of purulent drainage present, pink well healing skin present in center of wound, no streaking, no edema, no TTP) SpO2 Interpretation: normal SpO2: 97 O2 Delivery: Room Air Ordered Tests: Medication Summary Discontinued Medications Generic Name Dose Route Start Last Admin Trade Name Freq PRN Reason Stop Dose Admin Amoxicillin/Clavulanate Potassium 875 mg 02/25/24 19:31 02/25/24 19:39 Amox Tr/Potassium Clavulanate 875 Mg Tablet PO 02/25/24 19:32 875 mg STAT ONE Administration Amoxicillin/Clavulanate Potassium Confirm 02/25/24 19:38 Amox Tr/Potassium Clavulanate 875 Mg Tablet Administered 02/25/24 19:39 Dose 875 mg .ROUTE .STK-MED ONE - Departure Departure Disposition: Home Clinical Impression: Wound of lower extremity Qualifiers: Encounter type: subsequent encounter Laterality: left Qualified Code(s): S81.802D - Unspecified open wound, left lower leg, subsequent encounter Condition: Stable Critical Care Time: No Referrals: RICHARD MORENO MD [Primary Care Provider] - Follow up/PCP as directed Additional Instructions: complete course of augmentin for 7 days continue wet to dry dressings until you can be seen by your Primary doctor - Dr Moreno - call for appointment early this week return to ED if: develop fevers, develop weakness or numbness in the leg or foot, drainage from wound starts to increase Prescriptions: Amox Tr/Potass Clav. 875 mg [Augmentin 875-125 Tablet] 875 mg PO BID 7 Days #13 tablet
[2024-02-25] MEDS ORDERED: Augmentin 875-125 Tablet ONE (19:38)
[2024-02-25] MEDS: Augmentin 875-125 Tablet PO ONE (19:39)
[2024-02-25 20:03] VITALS: BP 126/69; PULSE 70
== END 2024-02-25 20:16 | disposition home or self-care (01) ==
LOC: ED 19:02
DX: S81.812D Laceration without foreign body, left lower leg, subsequent encounter (principal); W26.8XXD Contact with other sharp object(s), not elsewhere classified, subsequent encounter; Z79.899 Other long term (current) drug therapy
CPT/HCPCS: 99282; A9270-GY